=== PATIENT | male | born 1945 | race Caucasian/White ===

== ENCOUNTER 2017-09-28 09:39 | Inpatient (IN) | payer OTHER ==
[2017-09-26 09:30] VITALS: BMI 33.0
--- NOTE | 2017-09-26 10:04 | PAT Medication Instructions ---
Service Date Sep 26, 2017. Current Home Medication List Albuterol Inhaler (Ventolin Inhaler), 2 PUFFS INH Amoxicillin (Amoxil), 2,000 MG PO UD Ascorbic Acid (Vitamin C), 1,000 MG PO QAM Atenolol (Tenormin), 25 MG PO QAM Cetirizine Hcl (Zyrtec), 10 MG PO QAM Cholecalciferol (Vitamin D3), 5,000 UNITS PO QAM Escitalopram Oxalate (Lexapro), 20 MG PO QPM Fluticasone Propionate (Inhala (Flovent Diskus), 2 PUFFS INH QAM Lisinopril (Zestril), 40 MG PO QAM Mometasone Furoate (Nasal) (Mometasone Furoate), 2 SPRAYS INTNAS QAM Montelukast Sodium (Singulair), 10 MG PO HS Multivitamin (Multivitamin), 1 TAB PO QAM Salmeterol Xinafoate (Serevent Diskus), 1 PUFF INH QAM Simvastatin (Zocor), 20 MG PO HS Terbinafine Hcl (Topical) (Lamisil At), 1 APPLN TOP DAILY/UD Vitamin D & K (K2 Plus D3 100-1000 Mcg-Unit), 1 TAB PO QAM [Guaifensin], 800 MG PO QAM [Guaifensin], 400 MG PO QPM [Nasonex [place]], 2 SPRAYS INTNAS QAM Medication Instructions For Your Scheduled Surgery Amoxicillin (Amoxil), 2,000 MG PO UD (continue as directed prior to dental procedures) - Hold the following medications 24 hours prior to surgery: Terbinafine Hcl (Topical) (Lamisil At), 1 APPLN TOP DAILY/UD - Hold the following medications the morning of surgery: [Guaifensin], 800 MG PO QAM Vitamin D & K (K2 Plus D3 100-1000 Mcg-Unit), 1 TAB PO QAM Multivitamin (Multivitamin), 1 TAB PO QAM Lisinopril (Zestril), 40 MG PO QAM Cholecalciferol (Vitamin D3), 5,000 UNITS PO QAM Cetirizine Hcl (Zyrtec), 10 MG PO QAM Ascorbic Acid (Vitamin C), 1,000 MG PO QAM - Take the following medications the morning of surgery with a sip of water: [Nasonex [place]], 2 SPRAYS INTNAS QAM Salmeterol Xinafoate (Serevent Diskus), 1 PUFF INH QAM Mometasone Furoate (Nasal) (Mometasone Furoate), 2 SPRAYS INTNAS QAM Fluticasone Propionate (Inhala (Flovent Diskus), 2 PUFFS INH QAM Atenolol (Tenormin), 25 MG PO QAM Albuterol Inhaler (Ventolin Inhaler), 2 PUFFS INH - Take the following medications as scheduled the night before surgery: [Guaifensin], 400 MG PO QPM Simvastatin (Zocor), 20 MG PO HS Montelukast Sodium (Singulair), 10 MG PO HS Escitalopram Oxalate (Lexapro), 20 MG PO QPM Albuterol Inhaler (Ventolin Inhaler), 2 PUFFS INH If you have any questions please call us at [phone] or [phone] or [phone]
[2017-09-26 10:39] LABS: BASO % 0.6 %; BASO ABS # 0.05 K/uL (0-0.2); COMPLETE YES; HEMATOCRIT 40.7 % (42-52); IG% 0.3 %; LYMPH % 13.9 %; LYMPH ABS # 1.11 K/uL (1.2-3.4); MEAN CELL VOLUME 95.1 fL (80-100); MEAN CORPUSCULAR HEMOGLOBIN 31.3 pg (25-34); MEAN CORPUSCULAR HGB CONC 32.9 g/dl (32-36); MEAN PLATELET VOLUME 10.4 fL (7.4-10.4); MONO % 17.4 %; NEUT % 62.8 %; PLATELET COUNT 182 K/uL (130-400); RED BLOOD COUNT 4.28 M/uL (4.7-6.1)
--- NOTE | 2017-09-26 10:41 | DIAGNOSTIC IMAGING REPORT ---
CHEST PREADMISSION(PA/LAT) CLINICAL HISTORY: Preoperative chest. History of asthma. COMPARISON STUDY: No previous studies for comparison. FINDINGS: The heart is normal in size. There is no failure. There is no lobar consolidation. There is a calcified left lower lobe granuloma. On the lateral view there is a 24 mm opacity projected over the anterior aspect of the lower thoracic spine. As no corresponding lesion is visualized on the PA film this likely represents a summation. Nevertheless seem prudent to obtain a repeat study with shallow lateral obliques to exclude a parenchymal lesion.[ IMPRESSION: 24 mm opacity visualized only on the lateral radiograph. This likely represents a summation. A repeat study with shallow lateral obliques is recommended to exclude a true parenchymal lesion. Electronically signed by: Bud Smith M.D. 09/26/2017 10:40 AM Dictated Date/Time: 09/26/2017 10:37 AM
[2017-09-26 10:42] LABS: URINE APPEARANCE CLEAR (CLEAR); URINE BILIRUBIN NEG (NEG); URINE COLOR YELLOW; URINE NITRITE NEG (NEG); URINE PH 6.5 (4.5-7.5); URINE SPECIFIC GRAVITY 1.017 (1.000-1.030); UROBILINOGEN NEG (NEG); ZZUR CULT IF INDIC CLEAN CATCH NO
[2017-09-26 10:45] LABS: MANUAL MICROSCOPIC REQUIRED? NO; REVIEW REQ? NO
[2017-09-26 10:46] LABS: BUN/CREATININE RATIO 18.4 (10-20); CREATININE 1.01 mg/dl (0.60-1.40); POTASSIUM 4.6 mmol/L (3.5-5.1)
[2017-09-26 10:53] LABS: PROTHROMBIN TIME (PATIENT) 10.3 SECONDS (9.0-12.0)
[2017-09-26 11:16] LABS: ESTIMATED AVERAGE GLUCOSE 111 mg/dl; HA1C FLAG Normal (Normal)
--- NOTE | 2017-09-26 15:04 | HISTORY & PHYSICAL EXAMINATION ---
DATE OF ADMISSION: 09/28/2017 CHIEF COMPLAINT: Right knee pain and instability, status post previous total knee arthroplasty. HISTORY OF PRESENT ILLNESS: The patient is a 72-year-old gentleman approximately 15 years status post right total knee arthroplasty by an outside physician. Apparently, he had one episode of broken post years ago, which required a poly revision. He presented to our office for evaluation of pain and instability and x-rays revealed a repeat broken post. He is now scheduled for a right total knee revision. PAST MEDICAL HISTORY: Hypertension and asthma. PAST SURGICAL HISTORY: Bilateral knee replacement, left shoulder, and right hip. MEDICATIONS: Nasonex 2 sprays each nostril daily, Flovent 1 puff 2 times daily, atenolol 25 mg daily, Zestril 40 mg daily, Zocor 20 mg at bedtime, Zyrtec 10 mg daily, Singulair 10 mg at bedtime, and Mucinex 600 mg q. 12 hours p.r.n. ALLERGIES: CLINDAMYCIN, CEFTRIAXONE, AND LATEX. SOCIAL HISTORY AND REVIEW OF SYSTEMS: Noncontributory. PHYSICAL EXAMINATION: GENERAL: Well-nourished and well-developed elderly male who appears his stated age. HEENT: Normocephalic and atraumatic. Extraocular movements intact. Oropharynx is pink and moist. NECK: Supple without adenopathy. LUNGS: Clear to auscultation bilaterally. HEART: Regular rate and rhythm. ABDOMEN: Soft, nontender, and nondistended. EXTREMITIES: The upper extremities are within normal limits. The right knee is neutrally aligned. He has a well-healed midline incision from his previous arthroplasty. X-RAYS: X-rays were reviewed. He has bilateral total knees in place. He has a revision knee on the left side. The right knee shows evidence of a broken post with a displaced locking type screw. ASSESSMENT: Right knee pain and instability status post previous arthroplasty with new broken post. PLAN: Risks versus benefits were discussed. Consent was obtained. The patient's primary care physician is Dr. Heath. We will proceed with right total knee arthroplasty revision as indicated.
[2017-09-28] VITALS (7 sets, daily range): BP systolic 149–173; BP diastolic 77–89; PULSE 64–79; TEMP 36.4–36.8; O2SAT 93–97; Ht 172.7 cm; Wt 98.4 kg
[~2017-09-28] VITALS: Ht 172.7 cm; Wt 98.4 kg
[~2017-09-28 09:39] MED LIST: ACETAMINOPHEN 500 MG TAB PO SCH; ALBUAER19 INH; AMOX500T3 PO; ASCO10003 PO; ATEN-173 PO; BUPIVACAINE 0.25% 30 ML VIAL ONE; BUPIVACAINE 0.5 % 5 MG/1 ML PF 10ML VIAL ONE; CEFAZOLIN 2000MG IV PUSH 10 ML IV SCH; CETI10TA10 PO; CHOL1000 PO; CeleBREX 200 MG CAP PO SCH; DEXAMETHASONE 4 MG TAB PO SCH; ESCI1TAB10 PO; FAMOTIDINE 20 MG TAB PO SCH; FENTANYL CITRATE INJ 50 MCG/1 ML 2 ML VIAL ONE; FLUT1AER5 INH; GABAPENTIN 300 MG CAP PO SCH; GUAIFENSIN PO; LACTATED RINGER'S 1000ML IV SCH; LACTATED RINGER'S 500 ML IV SCH; LISI40TA PO; METOCLOPRAMIDE HCL 10 MG TAB PO SCH; MIDAZOLAM HCL 1 MG/ML 2ML VIAL ONE; MOME6000 INTNAS; MONT1TAB3 PO; MULT-506 PO; NASONEX SPRAY INTNAS; ROPIVACAINE 5MG/ML 30 ML 150 MG, BUPIVACAINE 0.5% MPF INJ 30 ML, EpINEphrine HCL INJ 0.... INFIL SCH; SIMV20TA5 PO; SRVDIN50 INH; TERB1CRE32 TOP; VITA1TAB22 PO
[2017-09-28] MEDS ORDERED: MIDAZOLAM HCL 1 MG/ML 2ML VIAL ONE (10:09)
[2017-09-28] MEDS ORDERED: CEFAZOLIN SOD 2000MG/10 ML IV PUSH IV ONE (10:44)
[2017-09-28] MEDS ORDERED: VANCOMYCIN 1GM/270ML NSS ONE (11:33)
[2017-09-28] MEDS ORDERED: MEPERIDINE HCL 25 MG/ML CARP IV PRN (12:00)
[2017-09-28] MEDS ORDERED: LABETALOL HCL IV 5 MG/ML 20ML IV PRN (12:00)
[2017-09-28] MEDS ORDERED: EpHEDrine SULFATE INJ 50 MG/ML AMP IV PRN (12:00)
[2017-09-28] MEDS ORDERED: HYDROmorphone INJ 1 MG/ML SYR IV PRN (12:00)
[2017-09-28] MEDS ORDERED: FENTANYL CITRATE INJ 50 MCG/1 ML 2 ML VIAL IV PRN (12:00)
[2017-09-28] MEDS ORDERED: ATROPINE SULFATE 0.1 MG/ML 5ML SYR IV PRN (12:00)
[2017-09-28] MEDS ORDERED: ONDANSETRON INJ 2 MG/ML 2 ML VIAL IV PRN ×2 (12:00→16:00)
[2017-09-28] MEDS ORDERED: VANCOMYCIN 1GM/270ML NSS IV ONE (12:00)
[2017-09-28] MEDS ORDERED: ORTHO JOINT ANESTHETIC ONE (13:18)
[2017-09-28] MEDS ORDERED: BACITRACIN 50000 UNIT VIAL ONE (13:19)
[2017-09-28] MEDS ORDERED: POVIDONE-IODINE OP SOLN 30 ML BTL ONE (13:19)
--- NOTE | 2017-09-28 13:36 | History & Physical Bridge Note ---
H&P Re-Evaluation Bridge Note: I have examined the patient, reviewed the History & Physical and in the interval since the performance of the History & Physical I have noted the following changes of clinical significance: No changes noted
--- NOTE | 2017-09-28 15:48 | [facility] Post Operative Brief Note ---
Immediate Operative Summary Operative Date Sep 28, 2017. Pre-Operative Diagnosis Right knee pain and instability status post previous arthroplasty with new broken post. Post-Operative Diagnosis Right knee pain and instability status post previous arthroplasty with new broken post. Procedure(s) Performed Revision of Right Total Knee Arthroplasty Surgeon Dr. Boo Tmd Teacher Surgeon(s) Sonny Trejo PA-C Estimated Blood Loss 100cc Findings gross loosening with broken post Specimens A. Explanted hardware right knee Complication(s) None Disposition Recovery Room / PACU
[2017-09-28] MEDS ORDERED: SOD PHOSPHATE/SOD BIPHOSPHATE ENEMA 132 ML BTL PR PRN (16:00)
[2017-09-28] MEDS ORDERED: METOCLOPRAMIDE HCL INJ 5 MG/ML 2 ML VIAL IV PRN (16:00)
[2017-09-28] MEDS ORDERED: ZOLPIDEM TARTRATE 5 MG TAB PO PRN (16:00)
[2017-09-28] MEDS ORDERED: MAGNESIUM HYDROXIDE SUSP 30 ML UDC PO PRN (16:00)
[2017-09-28] MEDS ORDERED: CEFAZOLIN IV 1,000 MG in DEXTROSE 5% 50ML 50 ML IV SCH (16:00)
[2017-09-28] MEDS ORDERED: MoRPHine SULFATE 2 MG/ML CARP IV PRN ×2 (16:00→16:30)
[2017-09-28] MEDS ORDERED: BISACODYL 10 MG SUPP PR PRN (16:00)
[2017-09-28] MEDS ORDERED: KETOROLAC TROMETHAMINE 15 MG/ML VIAL IV. PRN (16:00)
[2017-09-28] MEDS ORDERED: OXYCODONE HCL IR 5 MG TAB (IMMEDIATE RELEASE) PO PRN (16:00)
[2017-09-28] MEDS ORDERED: MoRPHine SULFATE 10 MG/ML CARP/VIAL IV PRN (16:30)
[2017-09-28] MEDS ORDERED: MoRPHine SULFATE 4 MG/ML 1 ML CARP\\VIAL IV PRN (16:30)
--- NOTE | 2017-09-28 16:52 | Anesthesiology Progress Note ---
Anesthesia Post Op Note Date & Time Sep 28, 2017 at 16:52 Vital Signs Pain Intensity: 0 Vital Signs Past 12 Hours Date Time Temp Pulse Resp B/P (MAP) Pulse Ox O2 Delivery O2 Flow Rate FiO2 09/28/17 16:45 56 18 137/78 100 Nasal Cannula 2 09/28/17 16:35 56 18 151/75 100 Oxymask 10 09/28/17 16:25 56 18 150/74 100 Oxymask 10 09/28/17 16:18 36.6 62 18 158/88 98 Oxymask 10 09/28/17 10:27 36.7 66 18 173/84 94 Room Air Notes Mental Status: alert / awake / arousable, participated in evaluation Pt Amnestic to Procedure: Yes Nausea / Vomiting: adequately controlled Pain: adequately controlled Airway Patency, RR, SpO2: stable & adequate BP & HR: stable & adequate Hydration State: stable & adequate Anesthetic Complications: no major complications apparent
--- NOTE | 2017-09-28 17:43 | DIAGNOSTIC IMAGING REPORT ---
RIGHT KNEE 2 VIEWS History: Right total knee arthroplasty. Degenerative arthritis. Postop. FINDINGS: The patient is status post a right total knee arthroplasty. The hardware is intact. No fracture or dislocation. Skin mckayla and surgical drains are in place. IMPRESSION: Right total knee arthroplasty. No evidence for hardware complication. Electronically signed by: Harshad Meraz M.D. 09/28/2017 5:42 PM Dictated Date/Time: 09/28/2017 5:32 PM
[2017-09-28] MEDS: TRANEXAMIC ACID INJ 1,000 MG in SYRINGE 0 ML IV SCH ×2 (18:53→18:55)
[2017-09-28] MEDS ORDERED: SENNA 8.6 MG TAB PO SCH (21:00)
[2017-09-28] MEDS: ACETAMINOPHEN 500 MG TAB PO SCH (21:25)
[2017-09-28] MEDS: ASPIRIN 81 MG ECTAB PO SCH (21:25)
[2017-09-28] MEDS: DOCUSATE SODIUM 100 MG CAP PO SCH (21:25)
[2017-09-28] MEDS ORDERED: TRANEXAMIC ACID INJ 1,000 MG in SODIUM CHLORIDE 0.9% 100ML 100 ML IV SCH (22:00)
[2017-09-28] MEDS ORDERED: VANCOMYCIN INJ 1,000 MG in SODIUM CHLORIDE 0.9% 250ML 250 ML IV SCH (22:00)
[2017-09-29] MEDS: D5W AND 1/2NSS + 20MEQ KCL 1,000 ML IV SCH ×3 (01:01→13:34)
[2017-09-29 03:50] VITALS: BP 152/86; PULSE 70; TEMP 36.5; O2SAT 95
[2017-09-29] MEDS: ACETAMINOPHEN 500 MG TAB PO SCH ×2 (05:33→13:33)
[2017-09-29 05:34] LABS: HEMATOCRIT 35.1 % (42-52); MEAN CELL VOLUME 93.1 fL (80-100); MEAN CORPUSCULAR HEMOGLOBIN 31.3 pg (25-34); MEAN CORPUSCULAR HGB CONC 33.6 g/dl (32-36); MEAN PLATELET VOLUME 10.7 fL (7.4-10.4); PLATELET COUNT 155 K/uL (130-400); RED BLOOD COUNT 3.77 M/uL (4.7-6.1); WHITE BLOOD COUNT 17.63 K/uL (4.8-10.8)
[2017-09-29 07:55] VITALS: BP 160/81; PULSE 72; TEMP 36.8; O2SAT 97
[2017-09-29] MEDS: ASPIRIN 81 MG ECTAB PO SCH (08:35)
[2017-09-29] MEDS: DOCUSATE SODIUM 100 MG CAP PO SCH (08:36)
--- NOTE | 2017-09-29 08:52 | Orthopedic Progress Note ---
Orthopedic Progress Note Date of Service Sep 29, 2017. Subjective Post OP Day: 1 Reports: feeling well, Denies: chest pain, SOB, nausea / vomiting, light headedness, calf pain Objective calves soft nontender, N/V intact, capillary refill less than 2 sec., dressing C /D/I, A&O x3, toes mobile, hemovac drainage (85CC) Date Time Temp Pulse Resp B/P (MAP) Pulse Ox O2 Delivery O2 Flow Rate FiO2 09/29/17 03:50 36.5 70 16 152/86 (108) 95 Room Air 09/28/17 23:45 Room Air 09/28/17 22:54 36.4 68 18 149/77 (101) 93 Room Air 09/28/17 20:52 36.8 68 16 163/81 (108) 97 Nasal Cannula 2.0 09/28/17 19:33 36.4 72 16 173/88 (116) 97 Nasal Cannula 2.0 09/28/17 18:22 36.5 79 16 171/89 (116) 96 Nasal Cannula 2.0 09/28/17 17:57 36.4 64 16 166/82 (110) 96 Nasal Cannula 2.0 09/28/17 17:50 Nasal Cannula 2.0 09/28/17 17:39 97 Nasal Cannula 2.0 09/28/17 17:10 36.6 62 18 137/74 99 Nasal Cannula 2 09/28/17 16:55 36.6 59 18 144/84 99 Nasal Cannula 2 09/28/17 16:45 56 18 137/78 100 Nasal Cannula 2 09/28/17 16:35 56 18 151/75 100 Oxymask 10 09/28/17 16:25 56 18 150/74 100 Oxymask 10 09/28/17 16:18 36.6 62 18 158/88 98 Oxymask 10 09/28/17 10:27 36.7 66 18 173/84 94 Room Air Laboratory Results 24 Hours: Test 09/29/17 05:10 Hematocrit 35.1 % Hemoglobin 11.8 g/dL Assessment & Plan Assessment: POD#1 SP REVISION RIGHT TKA Plan: PT/OT DVT PROPH- ASA 81MG BID PAIN MANAGEMENT DC PLANNING- DOING WELL, LIKELY DC HOME LATER THIS AFTERNOON. OK TO DC DRESSING/DRAIN.
[2017-09-29] MEDS ORDERED: CLB200 PO (08:55)
[2017-09-29] MEDS ORDERED: RXC5 PO (08:55)
[2017-09-29] MEDS ORDERED: ACET-24 PO (08:55)
[2017-09-29] MEDS ORDERED: SENN1TAB80 PO (08:55)
[2017-09-29] MEDS ORDERED: ASPEC81 PO (08:55)
--- NOTE | 2017-09-29 08:56 | Discharge Instructions ---
Discharge Instructions Date of Service Sep 29, 2017. Admission Reason for Admission: Right Knee Osteoarthritis, Painful Hardware Discharge Discharge Diagnosis / Problem: SP REVISION TKA Discharge Goals Goal(s): Decrease discomfort, Improve function, Increase independence Activity Recommendations Activity Limitations: per Instructions/Follow-up section . Instructions / Follow-Up Instructions / Follow-Up ACTIVITY RECOMMENDATIONS: SELF CARE INSTRUCTIONS AFTER TOTAL KNEE REPLACEMENT A. You may need to continue a physical therapy program after discharge from the hospital. There are several options available to you. Your doctor will assist you in selecting the best one for you. 1. An out-patient facility 2 to 3 times a week for therapy or home therapy. 2. Continue working on all exercises taught to you in the hospital. Your goals should be to increase bending of your knee to 90 degrees and beyond and to fully straighten your knee. B. You may progress at your own pace from walking with a walker or crutches to a cane; then to no assistive devices. C. Make walking a part of your daily routine. Be up as much as comfortable with rest periods throughout the day. Rest with leg elevation is very important. Use the ice wrap frequently for the first 3-4 weeks. D. There are no restrictions on activities. You may ride in a car, shop, participate in patch setter and all social activities. E. Wear the long elastic stockings (BURT hose) 20 hours a day for 2 weeks after surgery. They can be removed several times a day for laundering and for a bath. F. You may shower, no tub baths until cleared by your doctor. SPECIAL CARE INSTRUCTIONS: VERY IMPORTANT TO READ AND REVIEW A. There are a few signs you need to watch for after you are home. Call [facility] if you notice any of the followin. Increased severe knee pain. Some pain is expected especially when you exercise. 2. Increased swelling in your leg or knee; pain or swelling of the calf muscle in either lower leg. 3. Any fluid drainage from the incision. 4. Shortness of breath or chest pain. B. Please call [facility] at if you have any concerns or questions about your operation or recovery. The doctor or his nurse will return your call promptly. C. You must take antibiotics before dental work, bladder, bowel or other surgery. Your doctor will provide you with a permanent care to carry describing this precaution. IMPORTANT: * REMEMBER TO TAKE ASPIRIN, 81 MG, TWICE DAILY FOR 4 WEEKS UNLESS OTHERWISE DIRECTED. THIS IS YOUR BLOOD THINNER. * HIGH RISK PATIENTS MAY BE PRESCRIBED A STRONGER BLOOD THINNER. THIS WILL BE PROVIDED AT DISCHARGE. * CALL IF INCREASED PAIN, REDNESS, DRAINAGE OR FEVER GREATER THAT 101. * WEAR BURT HOSE 20 HOURS PER DAY FOR 2 WEEKS. * Prevena- This is a large suction dressing covering your incision. This will help pull any excess drainage from the wound and allow your incision to heal properly. You may shower with this if you can keep the unit outside of the shower. If any bleeding or leakage is noted please call your doctor's office. This will remain on your incision for 7 days and then should be removed. This can be done yourself or by the home nursing staff if applicable. The entire unit is disposable once removed. Once removed, keep incision clean and dry. If redness or drainage is noted, please call your surgeon. FOLLOW UP VISIT: If appointment is not already scheduled: Please call [facility] to make a follow-up appointment for 2 weeks after your surgery at . Current Hospital Diet Patient's current hospital diet: Regular Diet Discharge Diet Recommended Diet: Regular Diet Procedures Procedures Performed: Revision of Right Total Knee Arthroplasty Pending Studies Studies pending at discharge: no Laboratory Results Hemoglobin A1c Test 09/26/17 10:08 Range/Units Estimated Average Glucose 111 mg/dl Hemoglobin A1c 5.5 4.5-5.6 % Medical Emergencies . Who to Call and When: Medical Emergencies: If at any time you feel your situation is an emergency, please call 911 immediately. . Non-Emergent Contact Non-Emergency issues call your: Surgeon . "Provider Documentation" section prepared by Yokasta Nuno. . VTE Core Measure Inpt VTE Proph given/why not?: Other Anticoagulation, T.E.D. Stockings, SCD's
[2017-09-29] MEDS ORDERED: PANTOprazole SOD 40 MG TAB PO SCH (09:00)
[2017-09-29] MEDS ORDERED: ALBUTEROL HFA 8 GM INHALER INH PRN (11:00)
[2017-09-29 12:18] VITALS: BP 160/81; PULSE 72; TEMP 36.8; O2SAT 97
[2017-09-29 15:04] VITALS: BP 162/76; PULSE 63; TEMP 36.7; O2SAT 96
[2017-09-29] MEDS ORDERED: SIMVASTATIN 20 MG TAB PO SCH (21:00)
[2017-09-29] MEDS ORDERED: CeleBREX 200 MG CAP PO SCH (21:00)
[2017-09-29] MEDS ORDERED: ESCITALOPRAM OXALATE 20 MG TAB PO SCH (21:00)
[2017-09-29] MEDS ORDERED: MONTELUKAST SOD 10 MG TAB PO SCH (21:00)
[2017-09-30] MEDS ORDERED: CHOLECALCIFEROL 1000 INTER.UNIT TAB PO SCH (09:00)
[2017-09-30] MEDS ORDERED: CETIRIZINE HCL 10 MG TAB PO SCH (09:00)
[2017-09-30] MEDS ORDERED: SALMETEROL XINAFOATE 50MCG 28 BLISTER INH INH SCH (09:00)
[2017-09-30] MEDS ORDERED: LISINOPRIL 40 MG TAB PO SCH (09:00)
--- NOTE | 2017-10-01 07:03 | OPERATIVE REPORT ---
DATE OF OPERATION: 09/28/2017 PREOPERATIVE DIAGNOSIS: Aseptic loosening with broken post of right total knee. POSTOPERATIVE DIAGNOSIS: Aseptic loosening with broken post of right total knee. PROCEDURE: Revision total knee arthroplasty, right knee. SURGEON: Ángel Boo MD. STORY ANALYST: VALERI Suarez. ANESTHESIA: Spinal. COMPLICATIONS: None. Mr. Trejo was crucial throughout all portions of this case including prepping, draping, surgical clinical reviewer, wound closure and dressing application. DESCRIPTION OF PROCEDURE: The patient's right leg was prepped and draped in usual sterile manner. Limb was exsanguinated with an Esmarch bandage and tourniquet inflated to 325 mmHg. Of note, was significant decreased range of motion of the hip due to his hip fusion. A longitudinal incision was opened, subcutaneous tissue was sharply dissected. Electrocautery was used for hemostasis. 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 A lateral snip was carried out and a complete synovectomy was carried out using sharp dissection. The polyethylene was easily dislodged with an osteotome and was removed. Next, attention was turned to the femur and this was undermined using a narrow flexible osteotome and this was disimpacted using a punch and a mallet. No bone came with the implant. Next, the attention was turned to the tibia. This was undermined using a combination of both an oscillating saw and reciprocating saw and using a punch and a mallet, the tibia was easily removed. The adjust job of cement removal began and this was carried out using various osteotomes until all cement was removed. A drill was used to penetrate the distal cement plug in sequential reamings were taken up to a size 13, which gave good fill of the tibia. The tibial cutting guide was pinned into position. The guide was stable and the tibial reamer was removed and the tibial osteotomy was carried out. No gross bony defects were noted. Next, the 13 tibial reamer was again placed and decision was made with a 6 mm offset to give good centralization of the tibia. The tibial trial was assembled and was impacted in position and fit quite nicely. Next, attention was turned to the distal femur where sequential reamings were taken up to a size 17. The 4 femoral cutting guide was placed and 2 cuts for 10 mm distal augmentation and 5 mm medial augmentation posteriorly and a 10 mm lateral augmentation posteriorly were planned. All of these bone fragments were removed. Soft tissue was removed from any bony defects. A trial reduction was carried out and 16 poly gave good representation of range of motion as well as soft tissue tension. Decision was made to go with a constrained tibial post. The trials were removed. The patella that had been sought off previously was drilled and tracked nicely. The final components were assembled on the back table and 3 packs of gentamicin containing cement was mixed. First the tibial component was cemented into position. Then, the femoral component was cemented into position. The tibia was subluxed anteriorly enough that the tibial poly inserted. This was placed and the retaining pin was placed and the knee was reduced. Knee was held in extension while the patella was cemented into position. The patellar clamp was left on until the cement hardened. The wound was again thoroughly irrigated. Betadine soak was utilized. A joint mix was utilized throughout the case and the lateral snip extensor mechanism was closed using #2 Mersilene suture. Subcutaneous tissues closed using 0 Dexon, and skin was closed with ZipLine. Silverlon dressing was applied. The patient tolerated the procedure well. I attest to the content of the Intraoperative Record and any orders documented therein. Any exception s are noted below.
--- NOTE | 2017-10-01 13:20 | DISCHARGE SUMMARY ---
DISCHARGE DIAGNOSES: Right knee pain and instability due to broken prosthesis. SECONDARY DIAGNOSES: Hypertension and asthma. CONSULTS: None. COMPLICATIONS: None. PROCEDURE: Revision right total knee arthroplasty by Dr. Boo on 09/28/2017. BRIEF HISTORY: As dictated in the history and physical. HOSPITAL SUMMARY: The patient was admitted on the above noted date and had the above noted surgery performed, which he tolerated well. On the first postoperative day, the patient was feeling well and had no complaints. Calves were soft and nontender, neurovascularly intact. Dressings clean, dry and intact. Toes were mobile. Vital signs were stable. He was afebrile. Although, he was having some increased systolic blood pressures off and on. Hemoglobin was 11.8 and he was started on physical therapy protocol and continued on DVT prophylaxis and pain management. He was progressing well with his physical therapy and was remaining stable and it was felt he could be discharged to home on 09/29/2017. For further review, please see chart. LAB AND X-RAY DATA: As per chart. DISCHARGE INSTRUCTIONS: The patient was discharged to home in satisfactory condition on 09/29/2017. DIET: Regular. ACTIVITY: Follow TKA instruction sheets and special care instructions as noted. Follow up with Dr. Boo in 2 weeks. The patient is to call for an appointment if has not been made for you. DISCHARGE MEDICATIONS: Acetaminophen 1000 mg p.o. q. 8 hours for 30 days, aspirin 81 mg p.o. b.i.d., Celebrex 200 mg p.o. b.i.d., oxycodone 5-10 mg p.o. q. 4 hours p.r.n., and senna laxative 17.2 mg p.o. at bedtime. Resume home meds as listed and discharge instructions.
== END 2017-09-29 16:35 | disposition home or self-care (01) | DRG 468 ==
LOC: C.ACU 09:39 → C.3E 16:04 → ENRESERV 16:43
PROC: 0SPC0JZ Removal of Synthetic Substitute from Right Knee Joint, Open Approach (ICD-10-PCS; principal; 2017-09-28 13:05)
PROC: 0SRC0J9 Replacement of Right Knee Joint with Synthetic Substitute, Cemented, Open Approach (ICD-10-PCS; principal; 2017-09-28 13:05)
DX: T84.012A Broken internal right knee prosthesis, initial encounter (principal); T84.032A Mechanical loosening of internal right knee prosthetic joint, initial encounter; I10 Essential (primary) hypertension; J45.909 Unspecified asthma, uncomplicated; F32.9 Major depressive disorder, single episode, unspecified; E78.5 Hyperlipidemia, unspecified; Z96.653 Presence of artificial knee joint, bilateral; Z96.612 Presence of left artificial shoulder joint; Z96.641 Presence of right artificial hip joint; Z79.899 Other long term (current) drug therapy; Z91.040 Latex allergy status; Z88.1 Allergy status to other antibiotic agents

== ENCOUNTER → 2017-10-23 | Outpatient (CLI) | payer OTHER ==
[~2017-10-23] MED LIST changes: +ACET-1222 PO; +ACET-24 PO; -ACETAMINOPHEN 500 MG TAB PO SCH; +ASPEC81 PO; +ASPI81TA28 PO; -BUPIVACAINE 0.25% 30 ML VIAL ONE; -BUPIVACAINE 0.5 % 5 MG/1 ML PF 10ML VIAL ONE; -CEFAZOLIN 2000MG IV PUSH 10 ML IV SCH; +CLB200 PO; -CeleBREX 200 MG CAP PO SCH; -DEXAMETHASONE 4 MG TAB PO SCH; -FAMOTIDINE 20 MG TAB PO SCH; -FENTANYL CITRATE INJ 50 MCG/1 ML 2 ML VIAL ONE; -GABAPENTIN 300 MG CAP PO SCH; -LACTATED RINGER'S 1000ML IV SCH; -LACTATED RINGER'S 500 ML IV SCH; -METOCLOPRAMIDE HCL 10 MG TAB PO SCH; -MIDAZOLAM HCL 1 MG/ML 2ML VIAL ONE; -NASONEX SPRAY INTNAS; -ROPIVACAINE 5MG/ML 30 ML 150 MG, BUPIVACAINE 0.5% MPF INJ 30 ML, EpINEphrine HCL INJ 0.... INFIL SCH; +RXC5 PO; +SENN1TAB80 PO; +VNTHFA/IN INH
[2017-10-23 13:26] LABS: BASO % 0.3 %; BASO ABS # 0.03 K/uL (0-0.2); COMPLETE YES; EOS % 2.1 %; HEMATOCRIT 33.1 % (42-52); IG% 0.2 %; LYMPH % 10.1 %; LYMPH ABS # 0.96 K/uL (1.2-3.4); MEAN CELL VOLUME 96.5 fL (80-100); MEAN CORPUSCULAR HEMOGLOBIN 31.5 pg (25-34); MEAN CORPUSCULAR HGB CONC 32.6 g/dl (32-36); MONO % 14.3 %; PLATELET COUNT 284 K/uL (130-400); RED BLOOD COUNT 3.43 M/uL (4.7-6.1); WHITE BLOOD COUNT 9.54 K/uL (4.8-10.8)
[2017-10-23 13:32] LABS: INR 0.9 (0.9-1.1); PROTHROMBIN TIME (PATIENT) 9.9 SECONDS (9.0-12.0)
[2017-10-23 13:49] LABS: BLOOD UREA NITROGEN 27 mg/dl (7-18); BUN/CREATININE RATIO 21.4 (10-20); CALCIUM 8.8 mg/dl (8.5-10.1); CARBON DIOXIDE 24 mmol/L (21-32); CHLORIDE 105 mmol/L (98-107); CREATININE 1.24 mg/dl (0.60-1.40); GLUCOSE 94 mg/dl (70-99); POTASSIUM 4.6 mmol/L (3.5-5.1); SODIUM 137 mmol/L (136-145)
[2017-10-23 14:55] LABS: URINE APPEARANCE CLEAR (CLEAR); URINE BILIRUBIN NEG (NEG); URINE COLOR DK YELLOW; URINE NITRITE NEG (NEG); URINE SPECIFIC GRAVITY 1.026 (1.000-1.030); UROBILINOGEN NEG (NEG)
[2017-10-23 15:01] LABS: MANUAL MICROSCOPIC REQUIRED? NO; REVIEW REQ? NO
[2017-10-24 07:14] LABS: ESTIMATED AVERAGE GLUCOSE 100 mg/dl; HA1C FLAG Normal (Normal)
== END | disposition home or self-care (01) ==
LOC: C.LAB 12:09
PROVIDERS: ATTEND Orthopaedic Surgery Sports Medicine
DX: Z96.651 Presence of right artificial knee joint (principal)

== ENCOUNTER 2017-10-24 11:42 | Inpatient (IN) | payer OTHER ==
--- NOTE | 2017-10-23 14:24 | HISTORY & PHYSICAL EXAMINATION ---
DATE OF ADMISSION: 10/24/2017 CHIEF COMPLAINT: Right knee pain and swelling 1 month status post total knee revision. HISTORY OF PRESENT ILLNESS: The patient is a 72-year-old gentleman approximately 3-1/2 weeks status post right TKA revision. He states over the weekend he was walking up some steps, felt a pop in his knee, and had immediate pain and disability. He presented to our office for evaluation. 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 He is now scheduled for an urgent medial retinacular repair, possible poly exchange. PAST MEDICAL HISTORY: Hypertension and asthma. PAST SURGICAL HISTORY: Previous bilateral knee replacement many years ago and subsequent recent right total knee revision as above, left shoulder, right hip. MEDICATIONS: Nasonex 2 sprays each nostril daily, Flovent 1 puff 2 times daily, atenolol 25 mg daily, Zestril 40 mg daily, Zocor 20 mg at bedtime, Zyrtec 10 mg daily, Singulair 10 mg at bedtime, aspirin 81 mg b.i.d. ALLERGIES: CLINDAMYCIN, CEFTRIAXONE AND LATEX. SOCIAL HISTORY AND REVIEW OF SYSTEMS: Noncontributory. PHYSICAL EXAMINATION: GENERAL: Well-nourished, well-developed elderly male who appears his stated age. HEAD, EYES, EARS, NOSE, AND THROAT: Normocephalic, atraumatic, extraocular movements intact, oropharynx pink and moist. NECK: Supple without adenopathy. LUNGS: Clear to auscultation bilaterally. HEART: Regular rate and rhythm. ABDOMEN: Soft, nontender, nondistended. EXTREMITIES: The right knee is grossly swollen and ecchymotic. He has difficulty bearing weight. He is unable do a straight leg raise or extend the knee from a flexed position. X-RAYS: X-rays were reviewed and show a revision knee in place without abnormality. 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 PLAN: The above discussed with the patient and his . Due to Dr. Boo's absence, I have asked Dr. Zelaya to evaluate the patient. He has seen and evaluated the patient. He is in agreement that patient likely needs a medial retinacular repair. We will get him scheduled for retinacular repair in the near future. Also, possible poly exchange. Follow up with Dr. Boo postoperatively.
[2017-10-23 15:54] VITALS: BMI 33.0
[~2017-10-24] VITALS: Ht 172.7 cm; Wt 98.2 kg
[~2017-10-24 11:42] MED LIST changes: -ACET-24 PO; +ACETAMINOPHEN 500 MG TAB PO SCH; -ALBUAER19 INH; -ASPEC81 PO; +CEFAZOLIN 1000MG IV PUSH 5 ML IV SCH; -CLB200 PO; +CeleBREX 200 MG CAP PO SCH; +DEXAMETHASONE 4 MG TAB PO SCH; +FAMOTIDINE 20 MG TAB PO SCH; +GABAPENTIN 300 MG CAP PO SCH; -GUAIFENSIN PO; +LACTATED RINGER'S 1000ML 1,000 ML IV SCH; +LACTATED RINGER'S 1000ML IV SCH; +METOCLOPRAMIDE HCL 10 MG TAB PO SCH; +ROPIVACAINE 5MG/ML 30 ML 150 MG, BUPIVACAINE 0.5% MPF INJ 30 ML, EpINEphrine HCL INJ 0.... INFIL ONE; -RXC5 PO; -SENN1TAB80 PO; +VANCOMYCIN INJ 1,500 MG in SODIUM CHLORIDE 0.9% 500ML 500 ML IV SCH
[2017-10-24 12:23] VITALS: BP 119/62; PULSE 66; TEMP 36.6; Ht 172.7 cm; Wt 98.2 kg
[2017-10-24] MEDS ORDERED: CEFAZOLIN 2000MG IV PUSH 10 ML IV SCH (13:02)
--- NOTE | 2017-10-24 13:04 | History & Physical Bridge Note ---
H&P Re-Evaluation Bridge Note: I have examined the patient, reviewed the History & Physical and in the interval since the performance of the History & Physical I have noted the following changes of clinical significance: possible poly exchange if needed.
[2017-10-24] MEDS ORDERED: NURSING VERBAL MED ORDER ONE (13:15)
[2017-10-24] MEDS ORDERED: PROPOFOL IV EMULSION 10 MG/ML 20 ML VIAL IV ONE (13:23)
[2017-10-24] MEDS ORDERED: MIDAZOLAM HCL 1 MG/ML 2ML VIAL ONE ×4 (13:23→17:59)
[2017-10-24] MEDS ORDERED: FENTANYL CITRATE INJ 50 MCG/1 ML 2 ML VIAL ONE ×2 (13:23→16:17)
[2017-10-24] MEDS ORDERED: LIDOCAINE HCL 2% 2 ML VIAL (20MG/ML) ONE (13:23)
[2017-10-24] MEDS ORDERED: ONDANSETRON INJ 2 MG/ML 2 ML VIAL ONE (13:23)
[2017-10-24] MEDS ORDERED: BUPIVACAINE 0.5 % 5 MG/1 ML PF 10ML VIAL ONE (15:29)
[2017-10-24] MEDS ORDERED: BUPIVACAINE/EPINEPHRINE 0.25% 1:200,000 30 ML VIAL ONE (15:29)
[2017-10-24] MEDS ORDERED: POVIDONE-IODINE OP SOLN 30 ML BTL ONE (16:10)
[2017-10-24] MEDS ORDERED: BACITRACIN 50000 UNIT VIAL ONE ×2 (16:11→17:20)
[2017-10-24] MEDS ORDERED: CEFAZOLIN SOD 1 GM VIAL ONE ×2 (16:54)
[2017-10-24] MEDS ORDERED: EpHEDrine SULFATE 50MG/5ML SYR ONE (16:56)
[2017-10-24 17:45] VITALS: BP 136/74; PULSE 74; TEMP 36.4; O2SAT 93
[2017-10-24] MEDS ORDERED: ONDANSETRON INJ 2 MG/ML 2 ML VIAL IV PRN (18:45)
[2017-10-24] MEDS ORDERED: ALBUTEROL HFA 8 GM INHALER INH PRN (18:45)
[2017-10-24] MEDS ORDERED: MoRPHine SULFATE 2 MG/ML CARP IV PRN (18:45)
[2017-10-24] MEDS ORDERED: ALUMINUM/MAGNESIUM/SIMETH (MAALOX MAX) 30 ML UDC PO PRN (18:45)
[2017-10-24] MEDS ORDERED: TRAMADOL HCL 50 MG TAB PO PRN (18:45)
[2017-10-24] MEDS ORDERED: MAGNESIUM HYDROXIDE SUSP 30 ML UDC PO PRN (18:45)
[2017-10-24] MEDS ORDERED: MoRPHine SULFATE 4 MG/ML 1 ML CARP\\VIAL IV PRN (18:45)
--- NOTE | 2017-10-24 19:14 | Anesthesiology Progress Note ---
Anesthesia Post Op Note Date & Time Oct 24, 2017 at 19:14 Vital Signs Pain Intensity: 0 Vital Signs Past 12 Hours Date Time Temp Pulse Resp B/P (MAP) Pulse Ox O2 Delivery O2 Flow Rate FiO2 10/24/17 19:02 70 18 99 10/24/17 19:02 72 18 10/24/17 19:01 134/61 10/24/17 18:57 70 18 100 10/24/17 18:57 70 18 10/24/17 18:56 123/75 10/24/17 18:55 73 13 10/24/17 18:55 72 13 100 10/24/17 18:51 117/61 10/24/17 18:50 69 17 10/24/17 18:50 69 17 99 10/24/17 18:46 125/58 10/24/17 18:45 67 13 10/24/17 18:45 66 13 100 10/24/17 18:41 108/60 10/24/17 18:40 74 15 98 10/24/17 18:40 73 15 10/24/17 18:36 116/58 10/24/17 18:35 68 11 10/24/17 18:35 66 11 100 10/24/17 18:31 104/60 10/24/17 18:30 70 15 10/24/17 18:30 67 15 99 10/24/17 18:30 36.5 66 16 104/60 (72) 97 Oxymask 10 10/24/17 12:23 36.6 66 18 119/62 Room Air 97 Notes Mental Status: alert / awake / arousable, participated in evaluation Pt Amnestic to Procedure: Yes Nausea / Vomiting: adequately controlled Pain: adequately controlled Airway Patency, RR, SpO2: stable & adequate BP & HR: stable & adequate Hydration State: stable & adequate Neuraxial Anesthesia: was administered, sensory block is resolving Anesthetic Complications: no major complications apparent
[2017-10-24] MEDS ORDERED: D5W AND 1/2NSS + 20MEQ KCL 1,000 ML IV SCH (19:15)
[2017-10-24 20:15] VITALS: BP 142/73; PULSE 80; TEMP 36; O2SAT 92
[2017-10-24] MEDS ORDERED: VANCOMYCIN INJ 1,500 MG in SODIUM CHLORIDE 0.9% 500ML 500 ML IV ONE (20:15)
[2017-10-24 20:48] VITALS: BP 175/89; PULSE 97; TEMP 36.4; O2SAT 95
[2017-10-24] MEDS: OXYCODONE HCL IR 5 MG TAB (IMMEDIATE RELEASE) PO PRN (21:06)
[2017-10-24] MEDS: DOCUSATE SODIUM 100 MG CAP PO SCH (21:10)
[2017-10-24] MEDS: SIMVASTATIN 20 MG TAB PO SCH (21:10)
[2017-10-24] MEDS: ESCITALOPRAM OXALATE 20 MG TAB PO SCH (21:10)
[2017-10-24] MEDS: SENNA 8.6 MG TAB PO SCH (21:10)
[2017-10-24] MEDS: MONTELUKAST SOD 10 MG TAB PO SCH (21:11)
[2017-10-24] MEDS: TRANEXAMIC ACID INJ 1,000 MG in SYRINGE 0 ML IV SCH ×2 (21:19→21:20)
[2017-10-24 21:49] VITALS: BP 176/85; PULSE 100; TEMP 36.7; O2SAT 96
--- NOTE | 2017-10-24 21:50 | OPERATIVE REPORT ---
DATE OF OPERATION: 10/24/2017 INDICATION FOR PROCEDURE: The patient is a 72-year-old male patient of Dr. Boo, 1 month ago did a revision knee replacement. According to his operative note he did do quad snip during the procedure. The patient was doing well and then he was pushing up some stairs and felt a major pop and could not strain his leg and had ecchymosis, swelling all consistent with a ruptured medial retinaculum repair. Radiographs demonstrate the implant look well aligned and not loosened but the patella was in some baja which is likely consistent with possibly a quad tendon rupture. PREOPERATIVE DIAGNOSES: Right knee medial retinacular rupture 1 month post-revision total knee replacement, possible quadriceps tendon rupture. POSTOPERATIVE DIAGNOSES: Medial retinaculum and quadriceps tendon rupture, complete disruption of quadriceps tendon with hematoma, hemarthrosis, status post revision right knee replacement. PROCEDURE: Medial retinaculum and quadriceps tendon repair and irrigation and debridement of right knee joint, status post total knee arthroplasty. SURGEON: Fuentes Zelaya MD. STAFF RESEARCH ASSOCIATE: VALERI Suarez. ANESTHESIA: Spinal. OPERATIVE PROCEDURE: The patient was taken to the operating room and anesthetized with spinal anesthetic. He was placed supine on the operating room table. Pneumatic tourniquet was placed about the right upper thigh. His right lower extremity was prepped and draped with ChloraPrep. The patient's exam demonstrated he clinically had a large effusion, had some ecchymosis about the knee, there was no erythema, no signs of infection. He had a defect in his quad, palpable and he had very stiff hip, very limited range of motion of his hip joint. His right knee and leg was elevated, exsanguinated with Esmarch bandage. Pneumatic tourniquet was raised to 325 mmHg. Anterior incision was made through his previous old scar incision. We extended it up proximally several centimeters to gain access to the proximal quadriceps tendon. We did not utilize the lower aspect of the incision. The subcutaneous tissues were divided down entering a large hematoma. This hematoma was evacuated and there was large defect in his medial retinaculum extending up into the quad tendon. The medial retinacular repair from the proximal 3/4 of the patella down to the tibial tubercle was all intact and all sutures left in place. We did get a culture. We evacuated all the hematoma of the joint. Then we copiously irrigated out the wound with 3 liters of antibiotic solution with bacitracin. Then we took a better look at the injury and basically the quad snip was completely disrupted and the medial retinaculum was vertically split right in the upper medial aspect of the patella and then the curvilinear incision from the previous exposure was completely disrupted and retracted proximally with the vastus medialis retracted proximally. Then the quad tendon was completely disrupted transversally likely in the area of the quad snip and this went all the way out into the vastus lateralis and extended up into the vastus lateralis muscle. There was a small area of tendon of the quad tendon that was still at the musculotendinous junction and this was about 2.5 to 3 cm. We were able to utilize that tendon tissue for the repair. The tendon tissue did not look good in general. The wound was then further copiously irrigated. I freshened up the torn edge of the tendons including the VMO tendon, medial retinaculum and quad tendon. Then we put some retractors and looked into the joint and the post and the plastic were in good condition and evacuated some hemarthrosis from the joint and irrigated the joint out copiously. I then placed a traction suture into the VMO tendon, so we could get some longitudinal traction and extended the knee fully to take tension off the quad tendon. I then placed a Krackow type stitch into the small proximal quad tendon capturing some of the muscle as well. Then we placed another Krackow suture into the distal quad tendon down to the level of the patella and back proximally. Then these 2 Reyno sutures were sutured to each other repairing the quad tendon using surgeon's knots 7 throws. Then the medial retinacular repair, medial quad tendon was repaired with uovpey-co-ncxgm #2 Fiberwire and also intermittent egurpt-tl-ttkts #5 FiberWire sutures getting larger bites through the tissues in a onhpzd-if-utqxg fashion. Then we also closed the split in the vastus lateralis with aqxrhi-cw-heezj #2 FiberWire sutures and then medial retinaculum vertical extension along the medial side of the patella was closed with hghrll-ux-zirdn #2 FiberWire sutures. The knee was taken through range of motion and gravity equinus about 35 degrees. Without tension on the repair, I could bent knee to 40, with slight tension on the repair but the repair was secure at 40 degrees of flexion. The wound was copiously irrigated again with more antibiotic solution of bacitracin. Then we closed subcutaneous tissues with interrupted 2-0 Vicryl, closed the skin with mckayla. Sterile dressings were applied and knee immobilizer with knee extension. VALERI Suarez was my certified surgical first assistant. He functioned as certified surgical first assistant throughout the entire procedure. He assisted in soft tissue retraction, assisted in irrigation. He assisted me in some of the suture management. He performed some of the subcutaneous closure and also assisted in the skin closure with mckayla. He performed in dressing change, knee immobilizer and will participate in postoperative care of the patient. I attest to the content of the Intraoperative Record and any orders documented therein. Any exception s are noted below.
[2017-10-24] MEDS: ACETAMINOPHEN 500 MG TAB PO SCH (21:52)
[2017-10-24 22:38] VITALS: BP 184/92; PULSE 101; TEMP 36.6; O2SAT 94
[2017-10-24 23:33] LABS: MEAN CORPUSCULAR HEMOGLOBIN 32.2 pg (25-34); MEAN CORPUSCULAR HGB CONC 33.5 g/dl (32-36); PLATELET COUNT 209 K/uL (130-400); RED BLOOD COUNT 3.23 M/uL (4.7-6.1); WHITE BLOOD COUNT 7.83 K/uL (4.8-10.8)
[2017-10-24 23:49] LABS: BUN/CREATININE RATIO 21.6 (10-20); CALCIUM 8.4 mg/dl (8.5-10.1); CREATININE 1.08 mg/dl (0.60-1.40); MAGNESIUM 1.9 mg/dl (1.8-2.4); POTASSIUM 4.4 mmol/L (3.5-5.1)
[2017-10-25] VITALS (10 sets, daily range): BP systolic 145–178; BP diastolic 73–86; PULSE 74–104; TEMP 36.4–38.1; O2SAT 93–96
--- NOTE | 2017-10-25 02:50 | INTERNAL MEDICINE CONSULTATION ---
DATE OF CONSULTATION: 10/25/2017 PRIMARY CARE DOCTOR: Dr. Richter. REASON FOR CONSULTATION: Patient seen at the request of Dr. Cuevas for evaluation of postop hypertension and medical management. HISTORY OF PRESENT ILLNESS: History obtained from patient, records. Medical history significant for hypertension, asthma and tobacco abuse as per records. Patient currently admitted under Orthopedic service for R medial retinacular rupture status post right knee surgery. Four weeks ago patient had right TKA revision. He was at home yesterday walking some steps when he felt he pop on the right knee causing him to fall down, unable to get up, excruciating pain. Subsequently underwent right knee surgery yesterday. Postop the patient noted excruciating right knee pain. SBP elevated postop 140-180. Patient denies chest pain or shortness of breath. Took his morning pills yesterday morning. Blood pressure stable at home as per patient account. Postop right knee pain currently better. MEDICAL HISTORY: As above. SURGERIES: Knee surgery, some gland surgery from childhood, left shoulder surgery, hip surgery. HOME MEDICATIONS: Tylenol, Ventolin, vitamin C, aspirin, Tenormin, Zyrtec, vitamin D, Lexapro, Flovent, Zestril, Singulair, omeprazole, multivitamins, Zocor, Serevent, Lamisil vitamin D. ALLERGIES: LATEX, CLINDAMYCIN, CEFTRIAXONE . CURRENT INPATIENT MEDICATIONS: Include Tylenol, albuterol, docusate sodium, fluticasone, lisinopril, mag oxide, montelukast, morphine, multivitamins, oxycodone, Zofran, Xarelto, Serevent, simvastatin, Senna, Tramadol, vancomycin FAMILY HISTORY: Heart disease. PERSONAL AND SOCIAL HISTORY: Past tobacco abuse. No chronic intake of alcoholic beverages. Retired from maintenance. REVIEW OF SYSTEMS: As per HPI, all 10 systems reviewed. All other ROS negative. PHYSICAL EXAMINATION: VITAL SIGNS: Blood pressure was noted to be 176/82, pulse rate 104, RR 16, temperature 37, sats 94 on room. GENERAL: Noted pleasant, no respiratory distress, obese. SKIN: Pallor, warm. HEENT: Alopecia. Pale palpebral conjunctive. No ptosis. Dry mucosa. NECK: Short neck. No tenderness. LUNGS: Decreased breath sounds. No tenderness. HEART: Tachycardic. No murmur. ABDOMEN: Soft, nontender. EXTREMITIES: Immobilizer on the right lower extremity. Some tenderness. NEUROLOGIC: Coherent. No gross focality. LABORATORY STUDIES: Hemoglobin was noted to be 10.4, hematocrit 31, white cells 7.8, platelets 209. Sodium 137, potassium 3.4, chloride 107, CO2 24, BUN 20, creatinine 1, glucose 203 Hemoglobin A1c from 10/23/2017 was 5.1. ASSESSMENT: 1. Hypertensive urgency Multifactorial : uncontrolled postop pain, history of right knee surgery IV fluids possibly contributory 2. Asthma, past tobacco abuse. Asthma well controlled as per patient. 3. Hyperglycemia likely secondary to dextrose containing IVF, ehsan-op steroids. 4. Postop anemia Hemoglobin stable at 10 Patient asymptomatic. RECOMMENDATIONS: Facilitate home BP meds analgesia no NSAIDs please. OK to discontinue IV fluid. (Patient was able to eat dinner last night and chemistry within normal limits.) DVT prophylaxis, Xarelto. Thank you very much for this consultation. Dr. Rodas will follow patient's progress. HERON
[2017-10-25] MEDS ORDERED: TRANEXAMIC ACID INJ 1,000 MG in SYRINGE 0 ML IV SCH (06:00)
[2017-10-25] MEDS: ACETAMINOPHEN 500 MG TAB PO SCH ×3 (06:19→21:51)
--- NOTE | 2017-10-25 07:15 | Clinical Documentation Query ---
CLINICAL DOCUMENTATION QUERY A 72-year-old male patient had a right revision knee replacement. According to his operative note he did do quad snip during the procedure. The patient was doing well and then he was pushing up some stairs and felt a major pop and could not strain his leg and had ecchymosis, swelling all consistent with a ruptured medial retinaculum repair. Radiographs demonstrate the implant look well aligned and not loosened but the patella was in some baja which is likely consistent with possibly a quad tendon rupture. In your clinical opinion is this patient being managed for: ( x ) Post-procedural complication of right knee replacement ( ) Not Agree ( ) Other explanation of clinical findings (Please Explain) ( ) Unable to determine (Please Define) ( ) Need to Discuss The medical record reflects the following clinical findings, treatment, and risk factors. Clinical Indicators: Right knee medial retinacular rupture 1 month post-revision total knee replacement Treatment: Medial retinaculum and quadriceps tendon repair and irrigation and debridement of right knee joint, status post total knee arthroplasty Risk Factors: S/P right knee replacement 1 month ago Please clarify and document your clinical opinion in the progress notes and discharge summary. Terms such as "probable", "suspected", "likely", "questionable", "possible", or "still to be ruled out" are acceptable. IF IN AGREEMENT, YOU MUST DOCUMENT ABOVE DIAGNOSTIC STATEMENT IN DAILY PROGRESS NOTES AND DISCHARGE SUMMARY. This document is not part of the patient's record. Thank You, Milvia Salas RN [phone]
[2017-10-25] MEDS ORDERED: VANCOMYCIN INJ 1,500 MG in SODIUM CHLORIDE 0.9% 500ML 500 ML IV SCH (08:30)
[2017-10-25] MEDS: DOCUSATE SODIUM 100 MG CAP PO SCH ×2 (08:33→21:50)
[2017-10-25] MEDS: MULTIVITAMIN TAB PO SCH (08:34)
[2017-10-25] MEDS: RIVAROXABAN 10 MG TAB PO SCH (08:34)
[2017-10-25] MEDS: FLUTICASONE PROPIONATE NA SPR 16 GM BTL SCH (08:34)
[2017-10-25] MEDS: CETIRIZINE HCL 10 MG TAB PO SCH (08:34)
[2017-10-25] MEDS: LISINOPRIL 40 MG TAB PO SCH (08:34)
[2017-10-25] MEDS: SALMETEROL XINAFOATE 50MCG 28 BLISTER INH INH SCH (08:35)
[2017-10-25] MEDS: OXYCODONE HCL IR 5 MG TAB (IMMEDIATE RELEASE) PO PRN ×3 (08:39→22:49)
--- NOTE | 2017-10-25 10:44 | Orthopedic Progress Note ---
Orthopedic Progress Note Date of Service Oct 25, 2017. Subjective Post OP Day: 1 Reports: feeling well, pain controlled w PO medications, Denies: complaints, chest pain, SOB, nausea / vomiting, light headedness, calf pain Objective calves soft nontender, N/V intact, capillary refill less than 2 sec., dressing C /D/I, A&O x3, toes mobile Immobilizer in tact Date Time Temp Pulse Resp B/P (MAP) Pulse Ox O2 Delivery O2 Flow Rate FiO2 10/25/17 07:50 Room Air 10/25/17 07:02 36.4 85 16 161/80 (107) 93 Room Air 10/25/17 03:35 36.7 94 16 157/79 (105) 96 Room Air 10/25/17 00:15 104 16 176/82 (113) 10/25/17 00:15 Room Air 10/24/17 22:38 36.6 101 18 184/92 (122) 94 Room Air 10/24/17 21:49 36.7 100 18 176/85 (115) 96 Room Air 10/24/17 20:48 36.4 97 18 175/89 (117) 95 Room Air 10/24/17 20:15 36.0 80 14 142/73 (96) 92 Room Air Oxymask 10/24/17 19:45 Room Air Oxymask 10/24/17 19:45 Room Air 10/24/17 19:27 68 12 98 10/24/17 19:27 69 12 10/24/17 19:26 126/61 10/24/17 19:22 72 11 99 10/24/17 19:22 71 11 10/24/17 19:21 117/65 10/24/17 19:17 69 13 10/24/17 19:17 69 13 99 10/24/17 19:16 126/57 10/24/17 19:13 68 13 10/24/17 19:13 67 13 99 10/24/17 19:11 128/60 10/24/17 19:08 66 14 99 10/24/17 19:08 67 14 10/24/17 19:06 129/71 10/24/17 19:05 36.8 75 17 126/57 (81) 99 Nasal Cannula 2 Oxymask 10/24/17 19:03 68 17 10/24/17 19:03 66 17 100 10/24/17 19:02 70 18 99 10/24/17 19:02 72 18 10/24/17 19:01 134/61 10/24/17 18:57 70 18 100 10/24/17 18:57 70 18 10/24/17 18:56 123/75 10/24/17 18:55 73 13 10/24/17 18:55 72 13 100 10/24/17 18:51 117/61 10/24/17 18:50 69 17 10/24/17 18:50 69 17 99 10/24/17 18:46 125/58 10/24/17 18:45 67 13 10/24/17 18:45 66 13 100 10/24/17 18:41 108/60 10/24/17 18:40 74 15 98 10/24/17 18:40 73 15 10/24/17 18:36 116/58 10/24/17 18:35 68 11 10/24/17 18:35 66 11 100 10/24/17 18:31 104/60 10/24/17 18:30 70 15 10/24/17 18:30 67 15 99 10/24/17 18:30 36.5 66 16 104/60 (72) 97 Oxymask 10 10/24/17 17:45 36.4 74 18 136/74 (94) 93 Room Air 10/24/17 12:23 36.6 66 18 119/62 Room Air 97 Laboratory Results 24 Hours: Test 10/24/17 23:22 Hematocrit 31.0 % Hemoglobin 10.4 g/dL Assessment & Plan Assessment: POD #1, Right knee I&D, Medial retinaculum and Quad tendon repairs, s/p Rt TKA. Plan: PT/ OT- WBAT with Immobilizer DVT proph- Xarelto D/C planning- Home w OPPT As per medicine. Intra op gram stain- Mod WBC's, NO organisms. Cultures- Pending. Inhouse Planning Pain Management: Ultram, Morphine, PO Tylenol, Oxy IR DVT Prophylaxis: TEDs, SCDs, Xarelto Discharge Planning Discharge Planning: home with oppt Pain Management: PO Tylenol, Oxy IR DVT Prophylaxis: TEDs, Xarelto Therapy: Physical Therapy, Occupational Therapy
--- NOTE | 2017-10-25 17:18 | Progress Note ---
Internal Med Progress Note Date of Service: Oct 25, 2017. Provider Documentation: SUBJECTIVE: The patient was seen and examined Denies any Chest pain,palpitation ,sob No abdominal pain,nausea and or vomiting OBJECTIVE: Vital Signs-as noted below Exam: General-no distress at rest Eyes-normal ENT-normal Neck-supple Lungs-clear to ausucltate bilaterally Heart-Regular Abdomen-Benign,no masses,bowel sound present Extremities-No edema Left Knee is in Bandage Neuro-AAOx3 Lab data as noted below. ASSESSMENT & PLAN: Hypertensive urgency Multifactorial :uncontrolled postop pain, history of right knee surgery No associated symptoms BP is trending down Continue current medication Acute Blood Loss Anemia Hemoglobin stable at 10 Patient asymptomatic. Monitor H/H Hyperglycemia likely secondary to dextrose containing IVF, ehsan-op steroids. Blood sugars -reasonable Asthma, past tobacco abuse. Asthma well controlled as per patient. No Wheezing and or SOB DVT prophylaxis, Xarelto. DISPOSITION Medically stable Vital Signs: Date Time Temp Pulse Resp B/P (MAP) Pulse Ox O2 Delivery O2 Flow Rate FiO2 10/25/17 14:50 38.1 81 16 165/73 (103) 93 Room Air 10/25/17 11:25 37.1 81 16 160/77 (104) 95 Room Air 10/25/17 07:50 Room Air 10/25/17 07:02 36.4 85 16 161/80 (107) 93 Room Air 10/25/17 03:35 36.7 94 16 157/79 (105) 96 Room Air 10/25/17 00:15 104 16 176/82 (113) 10/25/17 00:15 Room Air 10/24/17 22:38 36.6 101 18 184/92 (122) 94 Room Air 10/24/17 21:49 36.7 100 18 176/85 (115) 96 Room Air 10/24/17 20:48 36.4 97 18 175/89 (117) 95 Room Air 10/24/17 20:15 36.0 80 14 142/73 (96) 92 Room Air Oxymask 10/24/17 19:45 Room Air Oxymask 10/24/17 19:45 Room Air 10/24/17 19:27 68 12 98 10/24/17 19:27 69 12 10/24/17 19:26 126/61 10/24/17 19:22 72 11 99 10/24/17 19:22 71 11 10/24/17 19:21 117/65 10/24/17 19:17 69 13 10/24/17 19:17 69 13 99 10/24/17 19:16 126/57 10/24/17 19:13 68 13 10/24/17 19:13 67 13 99 10/24/17 19:11 128/60 10/24/17 19:08 66 14 99 10/24/17 19:08 67 14 10/24/17 19:06 129/71 10/24/17 19:05 36.8 75 17 126/57 (81) 99 Nasal Cannula 2 Oxymask 10/24/17 19:03 68 17 10/24/17 19:03 66 17 100 10/24/17 19:02 70 18 99 10/24/17 19:02 72 18 10/24/17 19:01 134/61 10/24/17 18:57 70 18 100 10/24/17 18:57 70 18 10/24/17 18:56 123/75 10/24/17 18:55 73 13 10/24/17 18:55 72 13 100 10/24/17 18:51 117/61 10/24/17 18:50 69 17 10/24/17 18:50 69 17 99 10/24/17 18:46 125/58 10/24/17 18:45 67 13 10/24/17 18:45 66 13 100 10/24/17 18:41 108/60 10/24/17 18:40 74 15 98 10/24/17 18:40 73 15 10/24/17 18:36 116/58 10/24/17 18:35 68 11 10/24/17 18:35 66 11 100 10/24/17 18:31 104/60 10/24/17 18:30 70 15 10/24/17 18:30 67 15 99 10/24/17 18:30 36.5 66 16 104/60 (72) 97 Oxymask 10 10/24/17 17:45 36.4 74 18 136/74 (94) 93 Room Air Lab Results: Results Past 24 Hours Test 10/24/17 18:35 10/24/17 23:22 Range/Units Bedside Glucose 109 70-99 mg/dl White Blood Count 7.83 4.8-10.8 K/uL Red Blood Count 3.23 4.7-6.1 M/uL Hemoglobin 10.4 14.0-18.0 g/dL Hematocrit 31.0 42-52 % Mean Corpuscular Volume 96.0 80-100 fL Mean Corpuscular Hemoglobin 32.2 25-34 pg Mean Corpuscular Hemoglobin Concent 33.5 32-36 g/dl RDW Standard Deviation 54.9 36.4-46.3 fL RDW Coefficient of Variation 15.4 11.5-14.5 % Platelet Count 209 130-400 K/uL Mean Platelet Volume 9.0 7.4-10.4 fL Sodium Level 137 136-145 mmol/L Potassium Level 4.4 3.5-5.1 mmol/L Chloride Level 107 98-107 mmol/L Carbon Dioxide Level 24 21-32 mmol/L Anion Gap 6.0 3-11 mmol/L Blood Urea Nitrogen 23 7-18 mg/dl Creatinine 1.08 0.60-1.40 mg/dl Est Creatinine Clear Calc Drug Dose 68.2 ml/min Estimated GFR () 78.0 Estimated GFR (Non- 67.3 BUN/Creatinine Ratio 21.6 10-20 Random Glucose 203 70-99 mg/dl Calcium Level 8.4 8.5-10.1 mg/dl Magnesium Level 1.9 1.8-2.4 mg/dl Microbiology Results 10/24/17 Gram Stain - Final, Resulted 10/24/17 Bacterial Culture - Preliminary, Resulted NO GROWTH TO DATE.
[2017-10-25] MEDS: CLONIDINE HCL 0.1 MG TAB PO PRN (19:10)
[2017-10-25] MEDS: SENNA 8.6 MG TAB PO SCH (21:51)
[2017-10-25] MEDS: SIMVASTATIN 20 MG TAB PO SCH (21:51)
[2017-10-25] MEDS: ESCITALOPRAM OXALATE 20 MG TAB PO SCH (21:51)
[2017-10-25] MEDS: MONTELUKAST SOD 10 MG TAB PO SCH (21:51)
[2017-10-26] MEDS: OXYCODONE HCL IR 5 MG TAB (IMMEDIATE RELEASE) PO PRN ×2 (03:24→08:59)
[2017-10-26] MEDS: ACETAMINOPHEN 500 MG TAB PO SCH (05:09)
[2017-10-26 06:02] LABS: HEMATOCRIT 29.4 % (42-52); MEAN CELL VOLUME 95.5 fL (80-100); MEAN CORPUSCULAR HEMOGLOBIN 30.2 pg (25-34); MEAN CORPUSCULAR HGB CONC 31.6 g/dl (32-36); MEAN PLATELET VOLUME 9.3 fL (7.4-10.4); PLATELET COUNT 237 K/uL (130-400); RED BLOOD COUNT 3.08 M/uL (4.7-6.1); WHITE BLOOD COUNT 11.23 K/uL (4.8-10.8)
[2017-10-26 06:33] LABS: BUN/CREATININE RATIO 19.6 (10-20); CALCIUM 8.4 mg/dl (8.5-10.1); CREATININE 1.08 mg/dl (0.60-1.40); POTASSIUM 4.1 mmol/L (3.5-5.1)
[2017-10-26 07:50] VITALS: BP_SYST 160; BP_SYST 162; BP_DIAS 81; BP_DIAS 90; PULSE 76; TEMP 36.7; O2SAT 94
[2017-10-26 08:00] VITALS: O2SAT 94
--- NOTE | 2017-10-26 08:27 | Orthopedic Progress Note ---
Orthopedic Progress Note Date of Service Oct 26, 2017. Subjective Post OP Day: 2 Reports: feeling well, pain controlled w PO medications, Denies: complaints, chest pain, SOB, nausea / vomiting, light headedness, calf pain Objective calves soft nontender, N/V intact, capillary refill less than 2 sec., incision C /D/I, A&O x3, toes mobile Date Time Temp Pulse Resp B/P (MAP) Pulse Ox O2 Delivery O2 Flow Rate FiO2 10/26/17 08:00 94 Room Air 10/26/17 07:50 36.7 76 12 160/90 (113) 94 Room Air 162/81 (108) 10/26/17 07:25 Room Air 10/26/17 00:15 Room Air 10/25/17 23:25 36.8 74 16 147/73 (97) 96 Room Air 10/25/17 20:00 75 145/75 (98) 10/25/17 19:02 37.0 74 16 174/80 (111) 94 Room Air 10/25/17 16:59 37.0 77 178/86 (116) 10/25/17 15:55 Room Air 10/25/17 14:50 38.1 81 16 165/73 (103) 93 Room Air 10/25/17 11:25 37.1 81 16 160/77 (104) 95 Room Air Laboratory Results 24 Hours: Test 10/26/17 05:36 Hematocrit 29.4 % Hemoglobin 9.3 g/dL Assessment & Plan Assessment: POD #2, Right knee I&D, Medial retinaculum and Quad tendon repairs, s/p Rt TKA. Plan: PT/ OT- WBAT with Immobilizer DVT proph- Xarelto D/C planning- Home w OPPT today As per medicine. Intra op gram stain- Mod WBC's, NO organisms. Cultures- No growth Inhouse Planning Pain Management: Ultram, Morphine, PO Tylenol, Oxy IR DVT Prophylaxis: TEDs, SCDs, Xarelto Discharge Planning Discharge Planning: home with oppt Pain Management: PO Tylenol, Oxy IR DVT Prophylaxis: TEDs, Xarelto Therapy: Physical Therapy, Occupational Therapy
[2017-10-26] MEDS ORDERED: XRL10 PO (08:29)
[2017-10-26] MEDS ORDERED: ACET-24 PO (08:29)
[2017-10-26] MEDS ORDERED: RXC5 PO (08:29)
--- NOTE | 2017-10-26 08:34 | Discharge Instructions ---
Discharge Instructions Date of Service Oct 26, 2017. Admission Reason for Admission: Right Knee Retinacular Rupture S/P Tka Discharge Discharge Diagnosis / Problem: Right knee retinacular repair/ quad repair s/p TKA Discharge Goals Goal(s): Improve function Activity Recommendations Activity Limitations: as noted below . Instructions / Follow-Up Instructions / Follow-Up ACTIVITY RECOMMENDATIONS: SELF CARE INSTRUCTIONS AFTER TOTAL KNEE REPLACEMENT A. You may need to continue a physical therapy program after discharge from the hospital. There are several options available to you. Your doctor will assist you in selecting the best one for you. 1. An out-patient facility 2 to 3 times a week for therapy or home therapy. 2. Continue working on all exercises taught to you in the hospital. B. You may progress at your own pace from walking with a walker or crutches to a cane; then to no assistive devices. C. Make walking a part of your daily routine. Be up as much as comfortable with rest periods throughout the day. Rest with leg elevation is very important. Use the ice wrap frequently for the first 3-4 weeks. D. There are no restrictions on activities. You may ride in a car, shop, participate in stacking machine operator and all social activities. E. Wear the long elastic stockings (BURT hose) 20 hours a day for 2 weeks after surgery. They can be removed several times a day for laundering and for a bath. F. You may shower, no tub baths until cleared by your doctor. SPECIAL CARE INSTRUCTIONS: VERY IMPORTANT TO READ AND REVIEW A. There are a few signs you need to watch for after you are home. Call [facility] if you notice any of the followin. Increased severe knee pain. Some pain is expected especially when you exercise. 2. Increased swelling in your leg or knee; pain or swelling of the calf muscle in either lower leg. 3. Any fluid drainage from the incision. 4. Shortness of breath or chest pain. B. Please call [facility] at if you have any concerns or questions about your operation or recovery. The doctor or his nurse will return your call promptly. C. You must take antibiotics before dental work, bladder, bowel or other surgery. Your doctor will provide you with a permanent care to carry describing this precaution. IMPORTANT: * REMEMBER TO TAKE ASPIRIN, 81 MG, TWICE DAILY FOR 4 WEEKS UNLESS OTHERWISE DIRECTED. THIS IS YOUR BLOOD THINNER. * HIGH RISK PATIENTS MAY BE PRESCRIBED A STRONGER BLOOD THINNER. THIS WILL BE PROVIDED AT DISCHARGE. PATIENT ON XARELTO TRANSMITTED TO PHARMACY ON FILE. * CALL IF INCREASED PAIN, REDNESS, DRAINAGE OR FEVER GREATER THAT 101. * WEAR BURT HOSE 20 HOURS PER DAY FOR 2 WEEKS. * YOU MAY HAVE A LARGE BAND-AID LIKE DRESSING (SILVERON). THIS WILL REMAIN ON YOUR INCISION FOR 7 DAYS, THEN CAN BE REMOVED. IF INCISION IS LEAKING THROUGH DRESSING, CALL THE OFFICE . FOLLOW UP VISIT: If appointment is not already scheduled: Please call [facility] to make a follow-up appointment for 2 weeks after your surgery at . IMMOBILIZER OR BRACE AT ALL TIMES WITH KNEE LOCKED IN FULL EXTENSION, DO NOT BEND YOUR KNEE. MAY WEIGHT BEAR TOLERATED WITH WALKER. PLEASE COLLEGE COACH A NEW BRACE TODAY AFTER DISCHARGE FROM [facility]. Current Hospital Diet Patient's current hospital diet: AHA Diet (Heart Healthy) Discharge Diet Recommended Diet: Regular Diet Procedures Procedures Performed: Right Knee Retinacular Repair and Quadriceps Tendon Repair Pending Studies Studies pending at discharge: no Laboratory Results Hemoglobin A1c Test 10/23/17 12:17 Range/Units Estimated Average Glucose 100 mg/dl Hemoglobin A1c 5.1 4.5-5.6 % Medical Emergencies . Who to Call and When: Medical Emergencies: If at any time you feel your situation is an emergency, please call 911 immediately. . Non-Emergent Contact Non-Emergency issues call your: Primary Care Provider . "Provider Documentation" section prepared by Evans Medina. . VTE Core Measure Inpt VTE Proph given/why not?: Other Anticoagulation (XARELTO), TTom Bonner, SCD's [place] Drug Monitoring Program Search Results: patient reviewed within database, no issues identified
[2017-10-26] MEDS: MULTIVITAMIN TAB PO SCH (08:56)
[2017-10-26] MEDS: FLUTICASONE PROPIONATE NA SPR 16 GM BTL SCH (08:56)
[2017-10-26] MEDS: RIVAROXABAN 10 MG TAB PO SCH (08:57)
[2017-10-26] MEDS: CLONIDINE HCL 0.1 MG TAB PO PRN (08:57)
[2017-10-26] MEDS: SALMETEROL XINAFOATE 50MCG 28 BLISTER INH INH SCH (08:57)
[2017-10-26] MEDS: CETIRIZINE HCL 10 MG TAB PO SCH (08:57)
[2017-10-26] MEDS: LISINOPRIL 40 MG TAB PO SCH (08:57)
[2017-10-26] MEDS: DOCUSATE SODIUM 100 MG CAP PO SCH (09:00)
[2017-10-26 09:41] VITALS: TEMP 36.7; O2SAT 94
[2017-10-26 10:09] VITALS: BP 129/70; PULSE 74
--- NOTE | 2017-10-26 10:40 | Progress Note ---
Internal Med Progress Note Date of Service: Oct 26, 2017. Provider Documentation: SUBJECTIVE: The patient was seen and examined Denies any Chest pain,palpitation ,sob BP has been high without any symptoms OBJECTIVE: Vital Signs-as noted below Exam: General-no distress at rest Eyes-normal ENT-normal Neck-supple Lungs-clear to ausucltate bilaterally Heart-Regular Abdomen-Benign,no masses,bowel sound present Extremities-No edema Left Knee is in Bandage Neuro-AAOx3 Lab data as noted below. ASSESSMENT & PLAN: Hypertensive urgency Multifactorial :uncontrolled postop pain, history of right knee surgery No associated symptoms BP is trending down Continue current medication BP remains high-Atenolol increased to 50mg /day Continue Atenolol 50mg Daily on discharge Acute Blood Loss Anemia Hemoglobin stable at 10 Patient asymptomatic. Monitor H/H-remains >9 Hyperglycemia likely secondary to dextrose containing IVF, ehsan-op steroids. Blood sugars -reasonable Asthma, past tobacco abuse. Asthma well controlled as per patient. No Wheezing and or SOB DVT prophylaxis, Xarelto. DISPOSITION Medically stable Vital Signs: Date Time Temp Pulse Resp B/P (MAP) Pulse Ox O2 Delivery O2 Flow Rate FiO2 10/26/17 10:09 74 129/70 (89) 10/26/17 09:41 36.7 76 12 94 Room Air 10/26/17 08:00 94 Room Air 10/26/17 07:50 36.7 76 12 160/90 (113) 94 Room Air 162/81 (108) 10/26/17 07:25 Room Air 10/26/17 00:15 Room Air 10/25/17 23:25 36.8 74 16 147/73 (97) 96 Room Air 10/25/17 20:00 75 145/75 (98) 10/25/17 19:02 37.0 74 16 174/80 (111) 94 Room Air 10/25/17 16:59 37.0 77 178/86 (116) 10/25/17 15:55 Room Air 10/25/17 14:50 38.1 81 16 165/73 (103) 93 Room Air 10/25/17 11:25 37.1 81 16 160/77 (104) 95 Room Air Lab Results: Results Past 24 Hours Test 10/26/17 05:36 Range/Units White Blood Count 11.23 4.8-10.8 K/uL Red Blood Count 3.08 4.7-6.1 M/uL Hemoglobin 9.3 14.0-18.0 g/dL Hematocrit 29.4 42-52 % Mean Corpuscular Volume 95.5 80-100 fL Mean Corpuscular Hemoglobin 30.2 25-34 pg Mean Corpuscular Hemoglobin Concent 31.6 32-36 g/dl RDW Standard Deviation 54.9 36.4-46.3 fL RDW Coefficient of Variation 15.6 11.5-14.5 % Platelet Count 237 130-400 K/uL Mean Platelet Volume 9.3 7.4-10.4 fL Sodium Level 138 136-145 mmol/L Potassium Level 4.1 3.5-5.1 mmol/L Chloride Level 105 98-107 mmol/L Carbon Dioxide Level 28 21-32 mmol/L Anion Gap 6.0 3-11 mmol/L Blood Urea Nitrogen 21 7-18 mg/dl Creatinine 1.08 0.60-1.40 mg/dl Est Creatinine Clear Calc Drug Dose 68.2 ml/min Estimated GFR () 78.0 Estimated GFR (Non- 67.3 BUN/Creatinine Ratio 19.6 10-20 Random Glucose 88 70-99 mg/dl Calcium Level 8.4 8.5-10.1 mg/dl
--- NOTE | 2017-10-26 13:19 | DISCHARGE SUMMARY ---
DISCHARGE DIAGNOSES: Medial retinacular and quadriceps tendon ruptures with complete disruption of quadriceps tendon with hematoma, hemarthrosis, status post revision right total knee arthroplasty. SECONDARY DIAGNOSES: Hypertension and asthma. CONSULTS: Dr. Hector Irving. COMPLICATIONS: None. PROCEDURES: The medial retinaculum and quadriceps tendon repair with irrigation and debridement of right knee joint, status post total knee arthroplasty by Dr. Zelaya on 10/24/2017. BRIEF HISTORY: As dictated in the history and physical. HOSPITAL SUMMARY: The patient was admitted on the above-noted date and had the above-noted surgery performed, which he tolerated well. On his first postoperative day, he was feeling well and pain was controlled. He had no complaints. Calves were soft, nontender, and neurovascularly intact. Dressings were clean, dry and intact. Toes were mobile. Vital signs showed systolic blood pressures, fluctuating up and down, which were treated accordingly by the medicine service. Hemoglobin was 10.4 and he was started on physical therapy protocol and weightbearing as tolerated with immobilizer. DVT prophylaxis with Xarelto and planning for outpatient PT upon discharge and continued on medical management. By his second postoperative day, he continued to feel well and pain was controlled. Calves were soft and nontender. Neurovascularly intact. Incision was clean, dry and intact. Toes were mobile. Vital signs were stable. Hemoglobin was 9.3 and he was progressing with his physical therapy and remaining medically stable. Cultures were showing no growth, no organisms and moderate WBCs and it was felt he could be discharged to home. For further review, please see chart. LAB AND X-RAY DATA: As per chart. DISCHARGE INSTRUCTIONS: The patient was discharged to home in satisfactory condition on 10/26/2017. DIET: Regular. ACTIVITY: Follow TKA instruction sheets and special care instructions as noted and follow up with Dr. Zelaya in 2 weeks. The patient is to wear immobilizer bracing at all times with knee locked in full extension and do not bend the knee. He may weightbear as tolerated with walker. Please pickup a new brace today after discharge from [facility] office in [place]. DISCHARGE MEDICATIONS: Acetaminophen 1000 mg p.o. q. 8 hours for 21 days, oxycodone 5-10 mg p.o. q. 4 hours p.r.n., and rivaroxaban 10 mg p.o. every day for 14 days. Resume home meds as listed and discharge instructions section and stop taking previous acetaminophen dosage and stop taking b.i.d. aspirin dose. MTDD
--- NOTE | 2017-10-31 06:38 | EDITING REQUIRED CODING QUERY ---
CODING QUERY To promote full compliance with coding requirements relating to patient care, provider participation is requested in all cases of flake cutter operator uncertainty. Please assist us with the question(s) below: Coding Question(s): Patient 1 month status post TKA revision. performed a Quadriceps SNIP during procedure. Patient was doing well, then pushed up stairs prior to this readmission , feeling a pop feeling with resultant swelling. * Knee Medial retinacular and Quadriceps ruptures identified - and repaired during this current admission. Please document the etiology of the muscle/tendon ruptures. Thanks for your help! 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 ____ Principal Diagnosis: "_that condition established after study, to be chiefly responsible for occasioning the admission of the patient to the hospital for care." Co-Existing Principal Diagnosis: "_when two or more diagnoses equally meet the criteria for principal diagnosis as determined by the circumstances of admission, diagnostic work up, and/or therapy provided, and the Alphabetic Index, Tabular List, or another coding guideline does not provide sequencing direction, any one of the diagnoses may be sequenced first." "When the physician has documented what appears to be a current diagnosis in the body of the record, but has not included the diagnosis in the final diagnostic statement, the physician should be asked whether the diagnosis should be added." (Source Coding [facility] 2 QTR90. p3-4)
== END 2017-10-26 11:40 | disposition home or self-care (01) | DRG 488 ==
LOC: C.ACU 11:42 → C.3E 12:53 → ENRESERV 19:06
PROVIDERS: ADMIT Orthopaedic Surgery Sports Medicine; ATTEND Orthopaedic Surgery Sports Medicine
PROC: 0MDN0ZZ Extraction of Right Knee Bursa and Ligament, Open Approach (ICD-10-PCS; principal; 2017-10-24 07:00)
PROC: 0LQL0ZZ Repair Right Upper Leg Tendon, Open Approach (ICD-10-PCS; principal; 2017-10-24 07:00)
PROC: 0S9C0ZZ Drainage of Right Knee Joint, Open Approach (ICD-10-PCS; principal; 2017-10-24 07:00)
PROC: 0LQQ0ZZ Repair Right Knee Tendon, Open Approach (ICD-10-PCS; principal; 2017-10-24 07:00)
DX: S76.111A Strain of right quadriceps muscle, fascia and tendon, initial encounter (principal); D62 Acute posthemorrhagic anemia; M25.061 Hemarthrosis, right knee; Z96.651 Presence of right artificial knee joint; I10 Essential (primary) hypertension; J45.909 Unspecified asthma, uncomplicated; B90 Sequelae of tuberculosis; Z79.82 Long term (current) use of aspirin; I16.0 Hypertensive urgency; T38.0X5A Adverse effect of glucocorticoids and synthetic analogues, initial encounter; Z87.891 Personal history of nicotine dependence; R73.09 Other abnormal glucose; T50.3X5A Adverse effect of electrolytic, caloric and water-balance agents, initial encounter; Z91.040 Latex allergy status; Y92.239 Unspecified place in hospital as the place of occurrence of the external cause; X50.9XXA Other and unspecified overexertion or strenuous movements or postures, initial encounter; Y92.018 Other place in single-family (private) house as the place of occurrence of the external cause

== ENCOUNTER 2019-11-25 06:27 | Inpatient (IN) ==
--- NOTE | 2019-10-28 16:27 | PAT Medication Instructions ---
Medication Instructions Date of Service October 28, 2019 Home Medications ascorbic acid (vitamin C) 500 mg PO QAM atenolol 25 mg PO QAM cetirizine [Zyrtec] 10 mg PO QAM cholecalciferol (vitamin D3) 5,000 unit PO DAILY clotrimazole [Athletic Foot Cream] 1 applic TOPICAL DAILY escitalopram oxalate 20 mg PO HS fluticasone propion-salmeterol [Advair Diskus] 1 inh INHALATION BID lisinopril 40 mg PO QAM meloxicam 15 mg PO QAM mometasone 2 spray INTRANASAL QAM montelukast 10 mg PO HS multivitamin 1 cap PO DAILY simvastatin 20 mg PO HS vitamin K2 100 mcg PO DAILY ASK your surgeon for instructions meloxicam 15 mg PO QAM STOP taking 24 hours before surgery clotrimazole [Athletic Foot Cream] 1 applic TOPICAL DAILY DO NOT take the morning of surgery ascorbic acid (vitamin C) 500 mg PO QAM cetirizine [Zyrtec] 10 mg PO QAM cholecalciferol (vitamin D3) 5,000 unit PO DAILY lisinopril 40 mg PO QAM multivitamin 1 cap PO DAILY vitamin K2 100 mcg PO DAILY Take morning of surgery With a small sip of water, OTHERWISE NOTHING TO EAT OR DRINK AFTER MIDNIGHT: atenolol 25 mg PO QAM cetirizine [Zyrtec] 10 mg PO QAM fluticasone propion-salmeterol [Advair Diskus] 1 inh INHALATION BID mometasone 2 spray INTRANASAL QAM Take evening before surgery escitalopram oxalate 20 mg PO HS fluticasone propion-salmeterol [Advair Diskus] 1 inh INHALATION BID montelukast 10 mg PO HS simvastatin 20 mg PO HS Other Notes If you have any questions please call us at [phone] or [phone] or [phone] or [phone]
--- NOTE | 2019-10-29 13:05 | Anesthesiology Consultation ---
Date of Service October 29, 2019 Assessment & Plan (1) Encounter for pre-operative examination: Chart Review Chart Review: Acceptable Risk for Surgery (PENDING PCP CLEARANCE) and Patient seen in Pre Admission Testing Teaching & Discussion Instructed NPO after midnight before surgery, except medications with 15 cc of water. Medication instructions provided according to the PAT guidelines. History Surgery Operation Date: 11/25/19 10:15 Proposed Procedures p Left Total Hip Arthroplasty Anterior - Robin Brizuela DO Height/Weight Height: 5 ft 8 in Weight: 99.2 kg Allergies Allergy/AdvReac Type Severity Reaction Status Date / Time ceftriaxone Allergy Unknown RASH/HIVES Verified 10/23/19 10:28 Cephalosporins Allergy Unknown RASH Verified 10/23/19 10:28 clindamycin Allergy Unknown RASH HIVES Verified 10/23/19 10:28 latex Allergy Unknown RASH Verified 10/23/19 10:28 orange Allergy Unknown ORANGES OR Verified 10/23/19 10:28 JUICE-DRY SKIN,WHEEZING pollen extracts Allergy Unknown POLLEN,GRASS Verified 10/23/19 10:28 HAYFEVER AGGRAVATES ASTHMA Medications Home Medications Medication Instructions Recorded Confirmed Last Taken ascorbic acid (vitamin C) [Vitamin 500 mg PO QAM 10/23/19 10/23/19 Unknown C] atenolol 25 mg PO QAM 10/23/19 10/23/19 Unknown cetirizine [Zyrtec] 10 mg PO QAM 10/23/19 10/23/19 Unknown cholecalciferol (vitamin D3) 5,000 unit PO DAILY 10/23/19 10/23/19 Unknown [Vitamin D3] clotrimazole [Athletic Foot Cream] 1 applic TOPICAL DAILY 10/23/19 10/23/19 Unknown escitalopram oxalate 20 mg PO HS 10/23/19 10/23/19 Unknown fluticasone propion-salmeterol 1 inh INHALATION BID 10/23/19 10/23/19 Unknown [Advair Diskus] lisinopril 40 mg PO QAM 10/23/19 10/23/19 Unknown meloxicam 15 mg PO QAM 10/23/19 10/23/19 Unknown mometasone 2 spray INTRANASAL QAM 10/23/19 10/23/19 Unknown montelukast 10 mg PO HS 10/23/19 10/23/19 Unknown multivitamin 1 cap PO DAILY 10/23/19 10/23/19 Unknown simvastatin 20 mg PO HS 10/23/19 10/23/19 Unknown vitamin K2 100 mcg PO DAILY 10/23/19 10/23/19 Unknown Past Medical History Medical History Depression Diverticulosis History of cellulitis X3 IN HX - MOST RECENT 2003. 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 Lumbar spinal stenosis L4 Obesity Osteoarthritis Exercise / Class Metabolic Activity II 4-5 Yardwork/Stairs/Walk up hill (Denies CP or SOB with 1 FOS) Past Family History Family History Sister Family history of diabetes mellitus Family history of lymphoma Sister Family history of diabetes mellitus Family history of lymphoma Past Surgical History Surgical History History of colonoscopy History of hip surgery R HIP FUSION History of neck surgery TODDLER, SURGERY TO LFORY SWOLLEN GLANDS History of revision of total replacement of left knee joint History of revision of total replacement of right knee joint History of rotator cuff surgery L X 2 History of tonsillectomy History of total left knee replacement History of total right knee replacement Past Anesthesia History No Hx of Anesthesia Complications and No Family Hx of Anesthesia Complications History of PONV No Hx of PONV and No Hx of Motion Sickness Social History Smoking Status: Former smoker tobacco type: cigarettes Do You Dip or Chew Tobacco: No Smoking End Date: 1979 Hx Alcohol Use: Yes alcohol intake frequency: holidays/special occasions only Hx Substance Use: No substance use type: does not use Review of Systems Pt denies any recent chest pain, shortness of breath, palpitations, cough, fever or URI. Physical Exam Vital Signs BP: 145/75 P: 62bpm SPO2: 94% RA T: 98.0 F R: 18 ENMT Mouth: + dental restorations (2 crowns upper L cuspid and lower L molar) and + chipped teeth (upper L incisor); no loose teeth Thyromental Distance: > or= 3.5 Finger Breadths (3.5) Mallampati Class: III Neck + short neck and + facial hair (short wylie); neck extension not limited Respiratory normal respiratory effort Auscultation: + crackles (soft exp/insp in B/L bases, otherwise CTA) Cardiovascular Rate/Rhythm: regular rate and regular rhythm Heart Sounds: no murmur Vessels: no carotid bruit Extremities: no edema Skin ~2inch x 2 inch irregular patch of ecchymosis on LUE. Pt states he dropped a large piece of wood on his arm yesterday. Testing Laboratory Results 10/29/19 12:53 10/29/19 12:53 PT 10.2 Seconds (9.0-12.0) 10/29/19 12:53 INR 1.0 (0.9-1.1) 10/29/19 12:53 APTT 25.7 Seconds (21.0-31.0) 10/29/19 12:53 Hemoglobin A1c 5.8 % (4.5-5.6) H 10/29/19 12:53 Urine Color Dark Yellow 10/29/19 12:53 Urine Appearance Cloudy (Clear) A 10/29/19 12:53 Urine pH 5.0 (4.5-7.5) 10/29/19 12:53 Ur Specific [place] 1.028 (1.000-1.030) 10/29/19 12:53 Urine Protein 1+ (Negative) H 10/29/19 12:53 Urine Glucose (UA) Negative (Negative) 10/29/19 12:53 Urine Ketones Negative (Negative) 10/29/19 12:53 Urine Nitrite Negative (Negative) 10/29/19 12:53 Ur Leukocyte Esterase Negative (Negative) 10/29/19 12:53 Urine WBC (Auto) 10-30 /hpf (0-5) H 10/29/19 12:53 Urine RBC (Auto) 0-4 /hpf (0-4) 10/29/19 12:53 U Hyaline Cast (Auto) 5-10 /lpf (0-5) H 10/29/19 12:53 U Epithel Cells (Auto) >30 /lpf (0-5) H 10/29/19 12:53 Urine Bacteria (Auto) Negative (Negative) 10/29/19 12:53 Blood Type O Positive 10/29/19 12:53 Antibody Screen NEGATIVE 10/29/19 12:53 Electrocardiogram Date: 10/29/19 Findings: + SB @ (59) Chest X-Ray Date: 10/29/19 Findings: + NAD
--- NOTE | 2019-10-29 13:54 | XRay Report ---
XR chest Pre-admission PA/Lat HISTORY: Preop. COMPARISON: Chest 09/26/2017. FINDINGS: Decrease in size in the focal density anterior to the lower thoracic spine on the lateral v iew only. This favors an osteophyte. Otherwise, lungs are clear. No pleural effusions. No pneumothora x. The heart is normal in size. IMPRESSION: No acute process. ACT 112: Negative or not required by law. Electronically signed by: Harshad Meraz M.D. 10/29/2019 1:53 PM
[2019-10-29 14:30] LABS: Basophils # (auto) 0.02 K/uL (0-0.2); Basophils % (auto) 0.3 %; Eosinophils # (auto) 0.22 K/uL (0-0.5); Hemoglobin 14.1 g/dL (14.0-18.0); Immature Granulocytes # (auto) 0.01 K/uL (0.00-0.02); Immature Granulocytes % (auto) 0.1 %; Lymphocytes # (auto) 1.06 K/uL (1.2-3.4); Lymphocytes % (auto) 14.2 %; Mean Corpuscular Hemoglobin 33.9 pg (25-34); Mean Corpuscular Hgb Conc 33.6 g/dL (32-36); Monocytes # (auto) 0.98 K/uL (0.11-0.59); Monocytes % (auto) 13.2 %; Neutrophils # (auto) 5.16 K/uL (1.4-6.5); Neutrophils % (auto) 69.2 %; Platelet Count 268 K/uL (130-400); RDW Coefficient of Variation 12.7 % (11.5-14.5); RDW Standard Deviation 46.6 fL (36.4-46.3); Red Blood Count 4.16 M/uL (4.7-6.1); White Blood Count 7.45 K/uL (4.8-10.8)
[2019-10-29 14:33] LABS: Appearance Urine Cloudy (Clear); Bacteria Urine Automated Negative (Negative); Bilirubin Urine Negative (Negative); Blood Urine Negative (Negative); Color Urine Dark Yellow; Epithelial Cell Urine Auto >30 /lpf (0-5); Glucose Urine UA Negative (Negative); Ketones Urine Negative (Negative); Leukocyte Esterase Urine Negative (Negative); Nitrite Urine Negative (Negative); Protein Urine 1+ (Negative); RBC Urine Automated 0-4 /hpf (0-4); Specific Gravity Urine 1.028 (1.000-1.030); Urobilinogen Urine Negative (Negative)
[2019-10-29 14:37] LABS: Albumin Level 3.9 gm/dl (3.4-5.0); BUN Creatinine Ratio 23.6 (10-20); Calcium 8.8 mg/dl (8.5-10.1); Creatinine Clr Calc Pharmacy 64.6 ml/min; Est GFR (African American) 74.4; Est GFR (Non-African American) 64.2; Potassium 4.6 mmol/L (3.5-5.1)
[2019-10-29 14:43] LABS: Partial Thromboplastin Ratio 0.9; Partial Thromboplastin Time 25.7 Seconds (21.0-31.0); Prothrombin Time 10.2 Seconds (9.0-12.0)
[2019-10-29 15:03] LABS: Sperm Urine Present (None Prsent)
[2019-10-30 05:40] LABS: Estimated Average Glucose 120 mg/dl; Hemoglobin A1C 5.8 % (4.5-5.6)
--- NOTE | 2019-11-23 10:56 | History & Physical Report ---
Date of Service November 23, 2019 Assessment & Plan (1) Degenerative joint disease of left hip: I have indicated the patient for left anterior total hip replacement. The risks, benefits and complications of surgery were explained to the patient which include but not limited to infection, acute blood loss, DVT/PE, injury to nerves, vessels, bone, soft tissue, arthrofibrosis, chronic pain, failure of the prosthesis, hip dislocation, leg length discrepancy, need for additional surgery, cardiac and pulmonary events and . The patient wished to proceed with surgery and informed consent was obtained at this time. We will plan for 81mg ASA BID post-operatively for DVT prophylaxis. Upon discharge the patient will be discharged home with home health services. Appropriate clearances by PCP were obtained. The patient was asymptomatic for UTI. History of Present Illness Chief Complaint: Left hip pain/djd Primary Care Provider: Gordo Richter The patient is a 74 year old male who presents with complaints of severe left hip pain and DJD. The patient has failed outpatient conservative treatments to this point which included NSAIDs, IA corticosteroid injection, home exercise/walking program. The patient's pain and limited function have progressed to the point where they severely hinder their activities of daily living and they no longer tolerate exercise programs. They are requesting to proceed with total hip replacement surgery. Allergies Allergy/AdvReac Type Severity Reaction Status Date / Time ceftriaxone Allergy Unknown RASH/HIVES Verified 11/25/19 07:28 Cephalosporins Allergy Unknown RASH Verified 11/25/19 07:28 clindamycin Allergy Unknown RASH HIVES Verified 11/25/19 07:28 latex Allergy Unknown RASH Verified 11/25/19 07:28 orange Allergy Unknown ORANGES OR Verified 11/25/19 07:28 JUICE-DRY SKIN,WHEEZING pollen extracts Allergy Unknown POLLEN,GRASS Verified 11/25/19 07:28 HAYFEVER AGGRAVATES ASTHMA Home Medications Home Medications Medication Instructions Recorded Confirmed Type ascorbic acid (vitamin C) [Vitamin 500 mg PO QAM 10/23/19 11/25/19 History C] atenolol 25 mg PO QAM 10/23/19 11/25/19 History cetirizine [Zyrtec] 10 mg PO QAM 10/23/19 11/25/19 History cholecalciferol (vitamin D3) 5,000 unit PO DAILY 10/23/19 11/25/19 History [Vitamin D3] clotrimazole [Athletic Foot Cream] 1 applic TOPICAL DAILY 10/23/19 11/25/19 History escitalopram oxalate 20 mg PO HS 10/23/19 11/25/19 History fluticasone propion-salmeterol 1 inh INHALATION BID 10/23/19 11/25/19 History [Advair Diskus] lisinopril 40 mg PO QAM 10/23/19 11/25/19 History meloxicam 15 mg PO QAM 10/23/19 11/25/19 History mometasone 2 spray INTRANASAL QAM 10/23/19 11/25/19 History montelukast 10 mg PO HS 10/23/19 11/25/19 History multivitamin 1 cap PO DAILY 10/23/19 11/25/19 History simvastatin 20 mg PO HS 10/23/19 11/25/19 History vitamin K2 100 mcg PO DAILY 10/23/19 11/25/19 History Past Med/Surg History Medical History Depression Diverticulosis History of cellulitis X3 IN HX - MOST RECENT 2003. 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 Lumbar spinal stenosis L4 Obesity Osteoarthritis Surgical History History of colonoscopy History of hip surgery R HIP FUSION History of neck surgery TODDLER, SURGERY TO FLORY SWOLLEN GLANDS History of revision of total replacement of left knee joint History of revision of total replacement of right knee joint History of rotator cuff surgery L X 2 History of tonsillectomy History of total left knee replacement History of total right knee replacement Family History Sister Family history of diabetes mellitus Family history of lymphoma Sister Family history of diabetes mellitus Family history of lymphoma Social History Preferred Language: Icelandic Communication Ability: Effective Property Maintenance Technician Required: No Beliefs That Will Affect Care: None Current Living Situation: Spouse Other Information That Helps Us Care for You: No Feels Safe at Home: Yes Smoking Status: Former smoker Tobacco Type: cigarettes ; Do You Dip or Chew Tobacco: No ; Smoking End Date: 1979 ; Hx Alcohol Use: Yes Hx Substance Use: No Review of Systems Review of Systems: All systems reviewed & are unremarkable except as noted in HPI & below Constitutional: as per Subjective / HPI Physical Exam Physical Exam: LLE NVSI +EHL/FHL/TA/GS SILT grossly, +2 DP pulse, compartments soft NT, limited painful ROM of the hip, antalgic gait. Constitutional: WD/WN, vitals as above Eyes: PERRL, conjunctivae normal, anicteric sclerae ENMT: external ear and nose normal, oropharynx normal Neck: trachea midline, no thyromegaly Respiratory: normal respiratory effort, lungs clear to auscultation Cardiovascular: RRR, no murmur, no edema Gastrointestinal (Abdomen): normal bowel sounds, soft, nontender, no hepatosplenomegaly Musculoskeletal: no cyanosis or clubbing, extremities motor strength 5/5 Skin: no rashes, warm and dry Neurologic: patellar DTR's 2+ bilat, sensation intact Psychiatric: A+Ox3, euthymic affect Lymphatic: no cervical or axillary lymphadenopathy Results & Data Diagnostic Findings Multiple views of the hip demonstrates severe DJD with complete loss of the joint space. +osteophytes, +sclerosis, +subchondral cysts.
[~2019-11-25 06:27] MED LIST changes: -ACET-1222 PO; -AMOX500T3 PO; -ASCO10003 PO; -ASPI81TA28 PO; -ATEN-173 PO; -CEFAZOLIN 1000MG IV PUSH 5 ML IV SCH; +CEFAZOLIN 2000MG 2,000 MG/15 ML SYR IV SCH; -CETI10TA10 PO; -CHOL1000 PO; -DEXAMETHASONE 4 MG TAB PO SCH; -ESCI1TAB10 PO; -FLUT1AER5 INH; -LACTATED RINGER'S 1000ML 1,000 ML IV SCH; -LACTATED RINGER'S 1000ML IV SCH; -LISI40TA PO; +LR 500ML BOLUS, THEN 15ML/HR IV SCH; -METOCLOPRAMIDE HCL 10 MG TAB PO SCH; +METOCLOPRAMIDE HCL 10 MG TABLET PO SCH; -MOME6000 INTNAS; -MONT1TAB3 PO; -MULT-506 PO; +ROPIVACAINE 0.5% HCL/PF 150 MG, BUPIVACAINE 0.5% MPF 30 ML, EPINEPHrine 30MG/30ML (OR U... INFIL SCH; -ROPIVACAINE 5MG/ML 30 ML 150 MG, BUPIVACAINE 0.5% MPF INJ 30 ML, EpINEphrine HCL INJ 0.... INFIL ONE; -SIMV20TA5 PO; -SRVDIN50 INH; -TERB1CRE32 TOP; +TRANEXAMIC ACID 1,000 MG **IV Intra-op IV SCH; +TRANEXAMIC ACID 1,000 MG **IV Pre-op IV SCH; -VANCOMYCIN INJ 1,500 MG in SODIUM CHLORIDE 0.9% 500ML 500 ML IV SCH; -VITA1TAB22 PO; -VNTHFA/IN INH; +dexAMETHasone 4 MG TAB PO SCH
[2019-11-25] MEDS ORDERED: BUPIVACAINE 0.5 % 5 MG/1 ML PF 10ML VIAL ONE (06:31)
[2019-11-25] MEDS ORDERED: fentaNYL citrate 100 MCG/2 ML VIAL ONE (08:01)
[2019-11-25] MEDS ORDERED: PROPOFOL IV EMULSION 10 MG/ML 20 ML VIAL IV ONE ×2 (08:01→12:06)
[2019-11-25] MEDS ORDERED: LIDOCAINE HCL 2% 2 ML VIAL/AMP(20MG/ML) INFIL ONE (08:01)
[2019-11-25] MEDS ORDERED: ePHEDrine sulfate 50 MG/ML SYR ONE (08:01)
[2019-11-25] MEDS ORDERED: PHENYLEPHRINE 100MCG/ML 5ML SYR ONE (08:01)
[2019-11-25] MEDS ORDERED: MIDAZOLAM HCL 1 MG/ML 2ML VIAL ONE ×2 (08:01)
[2019-11-25] MEDS ORDERED: VANCOMYCIN CONSULT ACTIVE PRN ×2 (08:03→13:50)
[2019-11-25] MEDS ORDERED: VANCOMYCIN HCL 1,500 MG in SODIUM CHLORIDE 0.9% 500 ML IV ONE (08:30)
[2019-11-25] MEDS ORDERED: ePHEDrine sulfate 50 MG/ML AMP IV PRN (09:32)
[2019-11-25] MEDS ORDERED: ONDANSETRON INJ 2 MG/ML 2 ML VIAL IV PRN ×2 (09:32→13:50)
[2019-11-25] MEDS ORDERED: ATROPINE SULFATE 0.1 MG/ML 10ML SYR IV PRN (09:32)
[2019-11-25] MEDS ORDERED: HYDROmorphone INJ 1 MG/ML SYRINGE IV PRN (09:32)
[2019-11-25] MEDS ORDERED: BACITRACIN INJ 50,000 UNIT VIAL ONE (09:45)
[2019-11-25] MEDS ORDERED: ORTHO JOINT ANESTHETIC ONE (09:45)
[2019-11-25] MEDS ORDERED: KETOROLAC TROMETHAMINE 15 MG/ML VIAL IV PRN (09:46)
--- NOTE | 2019-11-25 09:49 | History & Physical Bridge Note ---
Date of Service November 25, 2019 History & Physical Bridge Note I have examined the patient, reviewed the History & Physical and in the interval since the performance of the History & Physical I have noted the following changes of clinical significance: no changes noted
--- NOTE | 2019-11-25 12:08 | Post Operative Brief Note ---
Immediate Post Op Note v1 Date of Surgery November 25, 2019 Pre & Post Diagnosis Operation Date: 11/25/19 09:35 Pre-Op Diagnosis: LEFT HIP OSTEOARTHRITIS Post-Op Diagnosis: LEFT HIP OSTEOARTHRITIS I identified the patient and participated in the time-out.: Yes Procedure Operation Date: 11/25/19 09:35 Actual Procedures p Left Anterior Total Hip Arthroplasty- uncemented(Left) - Robin Brizuela DO Surgeon Robin Brizuela DO Strip Mill Operator Frank Licona Estimated Blood Loss 175 Findings Consistent with Post-Op Diagnosis Fluids 1200 cc LR Specimens femoral head Anesthesia Type Spinal MAC Complications none Disposition Disposition: Recovery Room Overlapping Procedure I was present for: the critical portions of procedure. I was immediately available: during the entire case. Back up surgeon: was not required during procedure.
--- NOTE | 2019-11-25 12:10 | Operative Report ---
Post Operative Report Pre & Post Diagnosis Operation Date: 11/25/19 09:35 Pre-Op Diagnosis: LEFT HIP OSTEOARTHRITIS Post-Op Diagnosis: LEFT HIP OSTEOARTHRITIS I identified the patient and participated in the time-out.: Yes Procedure Operation Date: 11/25/19 09:35 Actual Procedures p Left Anterior Total Hip Arthroplasty- uncemented(Left) - Robin Brizuela DO Surgeon Robin Brizuela DO Hide And Skin Classer Frank Licona Estimated Blood Loss 175 Findings Consistent with Post-Op Diagnosis Fluids 1200 cc LR Specimens femoral head Anesthesia Type Spinal MAC Complications none Disposition Disposition: Recovery Room Indications The patient is a 75-year-old male who presents with severe progressive left hip DJD who has failed outpatient conservative treatments. I indicated the patient for a anterior total hip replacement and the risks and benefits were explained in detail which include but not limited to infection, bleeding, blood clot, damage to surrounding bone, nerves, vessels, soft tissue, hip dislocation, failure of the prosthesis, leg length discrepancy, need for additional surgery and . The patient agreed to proceed with replacement of the hip and informed consent was obtained. Appropriate clearances were obtained. Description of Procedure COMPONENTS USED: [employer] hip system: Acetabulum size 52, femur size 9 high offset, femoral head 36-3, liner 5236, acetabular screw 25 mm x 1. DESCRIPTION OF PROCEDURE: Following satisfactory spinal anesthesia, the patient was placed supine on the OR table. The right leg was placed in the well leg chopra and the left leg in the traction device. The left leg was prepared with ChloraPrep and draped sterilely. A surgical timeout was performed, patient identified and site marissa verified. Appropriate antibiotics were given. A standard anterior approach in the interval between the sartorius and tensor muscles was performed. Dissection was carried down through subcutaneous tissues. Electrocautery was utilized for hemostasis. Circumflex femoral vessels were identified, tied and ligated. The anterior capsular fat pad was removed and the capsulotomy was performed revealing the arthritic femoral neck and head. A femoral neck cut was made with reciprocating saw and the bone fragments removed. The acetabular self-retraining retractor was placed. Acetabular reaming was completed under fluoroscopic guidance, a 52 shell was impacted into an anatomic position and secured with a dome screw. Local anesthetic was placed and following irrigation, the polyethylene liner was placed. The femur was placed into position of external rotation, extension and adduction. Femoral canal was prepared up to the size 9 high offset. Trial reduction with a -3 neck length head showed good soft tissue tension, leg lengths restored, and good fit and fill of the proximal canal using fluoroscopic landmarks. The hip was dislocated. The trial component was removed. The final implant was placed. The hip was irrigated with sterile saline solution and reduced. A Betadine soak was performed. After 3 minutes, the hip was once more irrigated with copious sterile saline solution with bacitracin. Jessica-incisional soft tissue was injected utilizing [place] [facility] which includes a combination of Ropivicaine 0.5% 150mg, Bupivicaine 0.5%/Epinephrine 1:200,000 30ml, Toradol 30mg, Dexamethasone 4mg, Ketamine 10mg, Clonidine 100mcg and NSS 30ml solution. The capsule was then closed with 1-0 Vicryl interrupted figure of eight sutures. The fascia was closed with a running suture of #1 Vicryl, the subcutaneous tissues with 2-0 Vicryl and the skin was closed with mckayla. A clean dry sterile dressing was applied which included Gayatri incisional VAC. The patient tolerated the procedure well and was transported to PACU in stable condition. Due to the complex nature of the procedure, the entire surgery was performed with the operational assistance of Frank licona PA-C. The outpatient physical therapist assistant, under direct supervision, was involved in the actual performance of all aspects of the surgical procedure including patient positioning, hemostasis, tissue retraction, instrument management and wound closure. I attest to the content of the Intraoperative Record and any orders documented therein. Any exceptions are noted below.
--- NOTE | 2019-11-25 12:21 | Fluoroscopy Report ---
FL hip LT 1V CLINICAL HISTORY: LT ANTERIOR TOTAL HIP COMPARISON STUDY: None FLUOROSCOPY TIME: 39 seconds. NUMBER OF FLUOROSCOPIC IMAGES: 1 FINDINGS: A single intraoperative fluoroscopic spot radiograph demonstrates a total left hip arthropl asty. There is no dislocation. IMPRESSION: Intraoperative fluoroscopic spot image demonstrating a total left hip arthroplasty ACT 112: Negative or not required by law. Electronically signed by: Bud Smith M.D. 11/25/2019 12:20 PM
--- NOTE | 2019-11-25 13:14 | XRay Report ---
XR hip 1V LT w pelvis CLINICAL HISTORY: 74 years-old Male presenting with IN PACU - A/P PELVIS and LATERAL HIP . TECHNIQUE: Single frontal view of the pelvis and crosstable lateral view of the left hip were obtaine d. COMPARISON: Fluoroscopic images performed earlier the same day. FINDINGS: Postsurgical changes of total left hip arthroplasty. Soft tissue emphysema and skin mckayla in place. No periprosthetic fracture or lucency. Arthrodesis across the right hip evident. Pelvis otherwise in tact. IMPRESSION: Expected postsurgical appearance status post total left hip arthroplasty. ACT 112: Negative or not required by law. Electronically signed by: Stanley Perea M.D. 11/25/2019 1:13 PM
[2019-11-25] MEDS ORDERED: METOCLOPRAMIDE HCL INJ 5 MG/ML 2 ML VIAL IV PRN (13:50)
[2019-11-25] MEDS ORDERED: HYDROmorphone INJ 0.5 MG/0.5 ML SYR IV PRN (13:50)
[2019-11-25] MEDS ORDERED: MAGNESIUM HYDROXIDE SUSP 30 ML UDC PO PRN (13:50)
[2019-11-25] MEDS ORDERED: bisacodyL 10 MG SUPP PR PRN (13:50)
[2019-11-25] MEDS ORDERED: NALOXONE HCL 0.4 MG/1 ML VIAL/CARP IV PRN (13:50)
[2019-11-25] MEDS ORDERED: OXYCODONE HCL IR 5 MG TAB (IMMEDIATE RELEASE) PO PRN (13:50)
--- NOTE | 2019-11-25 14:04 | Anesthesiology Progress Note ---
Date of Service November 25, 2019 Anesthesia Post Procedure Vital Signs Vital Signs: Temp Pulse Resp BP Pulse Ox 11/25/19 13:51 36.7 C 79 16 127/67 94 11/25/19 13:15 79 14 113/79 93 11/25/19 13:05 76 13 135/79 93 11/25/19 12:55 36.7 C 79 14 121/63 92 11/25/19 12:45 75 13 125/65 97 11/25/19 12:35 75 15 121/66 97 11/25/19 12:28 36.3 C L 78 16 111/62 96 11/25/19 07:33 36.5 C 62 16 140/66 95 Pain Intensity Left Hip: Pain Intensity: 6 Transfer of Care Handoff Completed per policy Notes Mental Status: alert / awake / arousable Patient Amnestic to Procedure: Yes Nausea / Vomiting: adequately controlled Pain: adequately controlled Airway Patency, RR, SpO2: stable & adequate BP & HR: stable & adequate Hydration State: stable & adequate Neuraxial Anesthesia: was administered and sensory block is resolving Anesthetic Complications: no major complications apparent
[2019-11-25] MEDS: SODIUM CHLORIDE 0.9% 1000ML 1,000 ML IV SCH ×2 (14:29→23:45)
[2019-11-25] MEDS: KETOROLAC TROMETHAMINE 15 MG/ML VIAL IV SCH ×2 (15:11→21:30)
[2019-11-25] MEDS: ACETAMINOPHEN 500 MG TAB PO SCH ×2 (15:11→21:31)
--- NOTE | 2019-11-25 19:03 | Orthopedic Progress Note ---
Date of Service November 25, 2019 Assessment & Plan (1) Degenerative joint disease of left hip: s/p L anterior total hip arthroplasty -Vanco x 24 -DVT ppx: SCDs, TEDs, ASA 81mg BID -WBAT LLE -PT/OT -PO XR demonstrates a well aligned well fixed prothesis without fracture/dislocation -am labs -DC planning Subjective Post Operative Progress Note Patient seen sitting up in bed, comfortable, denies complaints, pain well controlled, no acute issues. Review of Systems Review of Systems: All systems reviewed & are unremarkable except as noted in HPI & below Constitutional: as per Subjective / HPI Physical Exam Physical Exam: LLE NVSI +EHL/FHL/TA/GS SILT grossly, +2 DP pulse, compartments soft NT, dressing cdi. Constitutional: WD/WN, vitals as above Results & Data Vital Signs (Past 12 Hours) Vital Signs Temp Pulse Pulse Resp BP Pulse Ox 11/25/19 16:24 36.7 C 90 16 126/71 93 11/25/19 15:33 36.7 C 91 H 16 149/73 H 93 11/25/19 14:42 36.5 C 84 18 147/71 H 93 11/25/19 14:06 36.4 C L 83 16 135/65 93 11/25/19 13:51 36.7 C 79 16 127/67 94 11/25/19 13:15 79 14 113/79 93 11/25/19 13:05 76 13 135/79 93 11/25/19 12:55 36.7 C 79 14 121/63 92 11/25/19 12:45 75 13 125/65 97 11/25/19 12:35 75 15 121/66 97 11/25/19 12:28 36.3 C L 78 16 111/62 96 11/25/19 07:33 36.5 C 62 16 140/66 95
[2019-11-25] MEDS ORDERED: VANCOMYCIN HCL 1,500 MG in SODIUM CHLORIDE 0.9% 500 ML IV SCH (20:30)
[2019-11-25] MEDS ORDERED: MONTELUKAST SODIUM 10 MG TABLET PO SCH (21:00)
[2019-11-25] MEDS ORDERED: FLUTICASONE/VILANTEROL 200/25MCG 14 PUFFS/INHALER INH SCH (21:00)
[2019-11-25] MEDS ORDERED: ESCITALOPRAM OXALATE 20 MG TAB PO SCH (21:00)
[2019-11-25] MEDS ORDERED: SIMVASTATIN 20 MG TAB PO SCH (21:00)
[2019-11-25] MEDS ORDERED: SENNA 8.6 MG TAB PO SCH (21:00)
[2019-11-25] MEDS: DOCUSATE SODIUM 100 MG CAP PO SCH (21:30)
[2019-11-26] MEDS: KETOROLAC TROMETHAMINE 15 MG/ML VIAL IV SCH ×2 (02:47→09:01)
[2019-11-26] MEDS: ACETAMINOPHEN 500 MG TAB PO SCH ×2 (05:48→13:34)
[2019-11-26 06:26] LABS: Hematocrit (blood only) 32.9 % (42-52); Mean Corpuscular Hemoglobin 33.1 pg (25-34); Mean Corpuscular Hgb Conc 33.4 g/dL (32-36); Mean Corpuscular Volume 99.1 fL (80-100); Mean Platelet Volume 9.3 fL (7.4-10.4); Platelet Count 247 K/uL (130-400); RDW Coefficient of Variation 12.7 % (11.5-14.5); RDW Standard Deviation 46.3 fL (36.4-46.3); Red Blood Count 3.32 M/uL (4.7-6.1); White Blood Count 16.56 K/uL (4.8-10.8)
[2019-11-26 06:41] LABS: Immature Granulocytes # (auto) 0.06 K/uL (0.00-0.02); Immature Granulocytes % (auto) 0.4 %; Lymphocytes % (auto) 4.8 %; Monocytes # (auto) 1.59 K/uL (0.11-0.59); Monocytes % (auto) 9.6 %; Neutrophils # (auto) 14.11 K/uL (1.4-6.5); Neutrophils % (auto) 85.2 %
[2019-11-26 07:01] LABS: BUN Creatinine Ratio 27.3 (10-20); Calcium 8.5 mg/dl (8.5-10.1); Creatinine Clr Calc Pharmacy 50.8 ml/min; Est GFR (African American) 56.2; Est GFR (Non-African American) 48.5; Potassium 4.2 mmol/L (3.5-5.1)
--- NOTE | 2019-11-26 07:52 | Anesthesiology Progress Note ---
Date of Service November 26, 2019 Anesthesia Post Procedure Vital Signs Vital Signs: Temp Pulse Pulse Resp BP Pulse Ox 11/26/19 07:30 36.6 C 74 18 138/82 95 11/26/19 02:52 36.6 C 76 14 125/69 96 11/25/19 23:41 36.6 C 85 16 120/65 95 11/25/19 19:49 36.6 C 97 H 16 154/76 H 93 11/25/19 16:24 36.7 C 90 16 126/71 93 11/25/19 15:33 36.7 C 91 H 16 149/73 H 93 11/25/19 14:42 36.5 C 84 18 147/71 H 93 11/25/19 14:06 36.4 C L 83 16 135/65 93 11/25/19 13:51 36.7 C 79 16 127/67 94 11/25/19 13:15 79 14 113/79 93 11/25/19 13:05 76 13 135/79 93 11/25/19 12:55 36.7 C 79 14 121/63 92 11/25/19 12:45 75 13 125/65 97 11/25/19 12:35 75 15 121/66 97 11/25/19 12:28 36.3 C L 78 16 111/62 96 Pain Intensity Left Hip: Pain Intensity: 0 Notes Mental Status: alert / awake / arousable and participated in evaluation Patient Amnestic to Procedure: Yes Nausea / Vomiting: adequately controlled Pain: adequately controlled Airway Patency, RR, SpO2: stable & adequate BP & HR: stable & adequate Hydration State: stable & adequate Neuraxial Anesthesia: was administered and sensory block resolved Anesthetic Complications: no major complications apparent
[2019-11-26] MEDS: DOCUSATE SODIUM 100 MG CAP PO SCH (09:00)
[2019-11-26] MEDS ORDERED: ASPIRIN 81 MG ECTAB PO SCH (09:00)
[2019-11-26] MEDS ORDERED: ATENOLOL 25 MG TABLET PO SCH (09:00)
[2019-11-26] MEDS ORDERED: MULTIVITAMIN TAB PO SCH (09:00)
[2019-11-26] MEDS ORDERED: FLUTICASONE PROPIONATE NA SPR 16 GM BTL SCH (09:00)
[2019-11-26] MEDS ORDERED: lisinopriL 40 MG TAB PO SCH (09:00)
--- NOTE | 2019-11-26 12:53 | Orthopedic Progress Note ---
Date of Service November 26, 2019 Assessment & Plan (1) Degenerative joint disease of left hip: s/p L anterior total hip arthroplasty POD#1 -Vanco x 24 -DVT ppx: SCDs, TEDs, ASA 81mg BID -WBAT LLE -PT/OT -PO XR demonstrates a well aligned well fixed prothesis without fracture/dislocation -am labs - hgb 11.0 -DC planning: Home with OP PT Subjective Post Operative Progress Note Patient seen sitting up in bed, comfortable, denies complaints, pain well controlled, no acute issues. Denies F/C/N/V/SOP/CP. Review of Systems Review of Systems: All systems reviewed & are unremarkable except as noted in HPI & below Constitutional: as per Subjective / HPI Physical Exam Physical Exam: LLE NVSI +EHL/FHL/TA/GS SILT grossly, +2 DP pulse, compartments soft NT, dressing cdi. Constitutional: WD/WN, vitals as above Results & Data Vital Signs (Past 12 Hours) Vital Signs Temp Pulse Pulse Resp BP Pulse Ox 11/26/19 11:44 36.8 C 70 16 118/62 96 11/26/19 07:30 36.6 C 74 18 138/82 95 11/26/19 02:52 36.6 C 76 14 125/69 96 Laboratory Results 11/26/19 11/26/19 Range/Units 05:53 05:53 WBC 16.56 H (4.8-10.8) K/uL RBC 3.32 L (4.7-6.1) M/uL Hgb 11.0 L (14.0-18.0) g/dL Hct 32.9 L (42-52) % MCV 99.1 (80-100) fL MCH 33.1 (25-34) pg MCHC 33.4 (32-36) g/dL RDW Std Deviation 46.3 (36.4-46.3) fL RDW Coeff of Kristel 12.7 (11.5-14.5) % Plt Count 247 (130-400) K/uL MPV 9.3 (7.4-10.4) fL Immature Gran % (Auto) 0.4 % Neut % (Auto) 85.2 % Lymph % (Auto) 4.8 % [place] % (Auto) 9.6 % Eos % (Auto) 0.0 % Baso % (Auto) 0.0 % Immature Gran # (Auto) 0.06 H (0.00-0.02) K/uL Neut # (Auto) 14.11 H (1.4-6.5) K/uL Lymph # (Auto) 0.80 L (1.2-3.4) K/uL [place] # (Auto) 1.59 H (0.11-0.59) K/uL Eos # (Auto) 0.00 (0-0.5) K/uL Baso # (Auto) 0.00 (0-0.2) K/uL Sodium 137 (136-145) mmol/L Potassium 4.2 (3.5-5.1) mmol/L Chloride 109 H (98-107) mmol/L Carbon Dioxide 21 (21-32) mmol/L Anion Gap 7.0 (3-11) BUN 38 H (7-18) mg/dl Creatinine 1.40 (0.6-1.4) mg/dl Est Cr Clr Drug Dosing 50.8 ml/min Est GFR ( Amer) 56.2 Est GFR (Non-Af Amer) 48.5 BUN/Creatinine Ratio 27.3 H (10-20) Glucose 126 H (70-99) mg/dl Calcium 8.5 (8.5-10.1) mg/dl
[2019-11-26] MEDS ORDERED: CeleBREX 200 MG CAP PO SCH (13:00)
--- NOTE | 2019-11-29 14:33 | Discharge Summary ---
Date of Service November 26, 2019 Admission HPI Per Admitting Provider The patient is a 74 year old male who presents with complaints of severe left hip pain and DJD. The patient has failed outpatient conservative treatments to this point which included NSAIDs, IA corticosteroid injection, home exercise/walking program. The patient's pain and limited function have progressed to the point where they severely hinder their activities of daily living and they no longer tolerate exercise programs. They are requesting to proceed with total hip replacement surgery. Principal Diagnosis Left anterior total hip replacement Discharge Exam LLE NVSI +EHL/FHL/TA/GS SILT grossly, +2 DP pulse, compartments soft NT, dressing cdi. Constitutional WD/WN, vitals as above Discharge Data Allergies Allergy/AdvReac Type Severity Reaction Status Date / Time ceftriaxone Allergy Unknown RASH/HIVES Verified 11/25/19 07:28 Cephalosporins Allergy Unknown RASH Verified 11/25/19 07:28 clindamycin Allergy Unknown RASH HIVES Verified 11/25/19 07:28 latex Allergy Unknown RASH Verified 11/25/19 07:28 orange Allergy Unknown ORANGES OR Verified 11/25/19 07:28 JUICE-DRY SKIN,WHEEZING pollen extracts Allergy Unknown POLLEN,GRASS Verified 11/25/19 07:28 HAYFEVER AGGRAVATES ASTHMA Consultations 11/26/19 08:00 Consult Case Management - Discharge Planning Routine Procedures Performed Operation Date: 11/25/19 09:35 Actual Procedures p Left Anterior Total Hip Arthroplasty- uncemented(Left) - Robin Brizuela DO Ordered Studies 11/25/19 09:35 FL fluoroscopy <1hr Routine FL hip LT 1V Routine Hospital Course (1) Degenerative joint disease of left hip: The patient is a 74 -year-old male who presents with long standing history of severe left hip DJD and failed outpatient conservative treatments. The patient's symptoms have progressed to the point where it has been difficult to perform even normal activities of daily living. I indicated the patient for a left anterior total hip arthroplasty, the risks, benefits and complications of the procedure include but not limited to infection, bleeding, damage to bone, nerves, vessels, surrounding soft tissue, may develop blood clots, loss of function, leg length discrepancy, dislocation, failure of the components, loosening of the components, the need for additional surgery and . The patient wished to proceed with surgery at this time and informed consent was obtained. Hospital Course: On 11/25/19 the patient was taken to the operating room, adequate anesthesia administered and underwent a left anterior total hip arthroplasty. The patient tolerated the procedure well and was taken to the PACU in stable condition. Post-operatively the patient was started on a DVT ppx medication and given appropriate IV antibiotics. Consults were placed to physical therapy, occupational therapy and case management. On POD#1, the patient did well overnight and their pain was well controlled. Labs were drawn and the Hgb was 11.0. The patient progressed well with PT. Dressings were changed at this time and the incision was clean, dry and intact. The patients hospital stay was relatively uneventful and they were deemed stable by the orthopedic team and consultants to be discharged home with outpatient PT on 11/26/19. Discharge Instructions: Upon discharge the patient may weight bear as tolerates through their operative extremity. They were instructed to keep the incision clean and dry at all times. The patient may shower but should not submerge the incision, avoid bathing, pools and hot tubes. The patient was given a script for pain medication and should take as instructed. The patient was given a script for DVT ppx 81mg ASA BID and should take as directed. The patient was instructed to not drive or travel for long distances until cleared to do so. If the patient develops any symptoms of fevers, chills, nausea, vomiting, increased redness, swelling, pain or drainage from the surgical site, they should notify the office and/or proceed to the nearest emergency room. The patient should follow up in 10-14 days after surgery for their routine post-operative follow-up appointment and should call the office to confirm the date and time. s/p L anterior total hip arthroplasty POD#1 -Vanco x 24 -DVT ppx: SCDs, TEDs, ASA 81mg BID -WBAT LLE -PT/OT -PO XR demonstrates a well aligned well fixed prothesis without fracture/dislocation -am labs - hgb 11.0 -DC planning: Home with OP PT Total Time Total Time Spent Total Time Spent (In Minutes): 45 Discharge Plan Discharge Items Patient Disposition: Home - Self-Care Reason For Visit: LEFT HIP OSTEOARTHRITIS Discharge Diagnosis: Left anterior total hip replacement Condition on Discharge: Good Activity: Per Instructions section Lifting: Wait until after follow-up appointment Bathing: Keep incision dry Bathing Comment: No bathing, pools or hot tubs. Sexual Activity: Wait until after follow-up appointment Exercise/Sports: Wait until after follow-up appointment Driving/Machine Use: No driving. Weightbearing: Full weightbearing Non-emergency contact: Primary Care Provider and Surgeon Call non-emergency contact if: you have any medication questions, your symptoms worsen, your pain is not controlled, your pain is worsening, your pain is unusual for you, your pain is concerning for you, you have a fever, your temperature is above 101, your wound has increased redness, your wound has increased drainage and your wound pain has increased Follow-up/Referrals: Gordo Richter M.D. [Primary Care Provider] - Diet: Regular Addtl Attending Provider Instructions: ACTIVITY RECOMMENDATIONS: SELF CARE INSTRUCTIONS AFTER TOTAL HIP REPLACEMENT : Direct Anterior Approach Until the incision and soft tissues around your hip have healed, there is a possibility that the hip prosthesis could dislocate. A. Hip flexion ( Up & Down out of chair or steps ) may be difficult. This is normal. B. Numbness in front of the thigh is also normal for a few weeks. C. Use hand rails when walking on stairs. D. Wear low heeled shoes with non-slip soles. E. Be sure that your floors are free of things that could trip you - throw rugs, electrical cords, small objects. Avoid wet and waxed floors, especially with crutches and canes. F. Try to walk several times a day with rest periods between. G. Continue with all the exercises taught to you in the hospital. Again, make walking a part of your daily routine. SPECIAL CARE INSTRUCTIONS: VERY IMPORTANT TO READ AND REVIEW A. You may still be at risk for phlebitis and blood clots. 1. Wear surgical stockings (BURT hose) for 2 weeks after surgery to improve circulation and reduce swelling. 2. Take Aspirin 81mg twice daily for 4 weeks or as directed by your doctor. This is your blood thinner. 3. High risk patients may be prescribed a stronger blood thinner if necessary. 4. If you are on Coumadin normally, your family doctor/chief radiologic technologist should monitor your blood work. Expect a phone call the day of or the day after bloodwork is drawn to adjust your dosage. B. You must take antibiotics before having dental work, bladder, bowel and other surgery. Your doctor will provide you with a permanent card to carry describing precautions. C. Call [facility] if you have a fever, redness or swelling around the incision, cloudy drainage from incision, or sudden increase in pain in your hip, not relieved by your regular pain medication. D. Please call the office at if you have any concerns or questions about your operation or recovery. * YOU MAY SHOWER, NO TUB BATHS UNTIL CLEARED BY YOUR DOCTOR. - Keep an extra close eye on the top portion of your incision. Be sure to keep clean & dry. * WEAR BURT HOSE 20 HOURS PER DAY FOR 2 WEEKS. * YOU MAY PROGRESS FROM A WALKER, TO A CANE, TO INDEPENDENT AT YOUR OWN PACE. * MOST PATIENTS WILL HAVE HOME NURSING FOR THERAPY. IF YOU DECIDE TO DO OUTPATIENT PHYSICAL THERAPY, PLEASE SCHEDULE THIS 3 TIMES PER WEEK. *PREVENA incisional vac is a special dressing covering your incision. This dressing provides a sterile dry environment while you are healing. The dressing is to be left in place for 7 days post-operatively. Your home nurse or surgeon will remove. If you develop any redness or blisters or have any questions notify your surgeon immediately. There may be a small piece of suture material at one end of your incision. Do not pull or trim this. If it is bothersome or catching on clothing, you may cover it with a band-aid. FOLLOW UP VISIT: If appointment is not already scheduled: Please call [facility] to make a follow-up appointment for 2 weeks after your surgery at . Pending Studies at Discharge: No Stand-Alone Forms: My [facility], Opioid Pain Management, Smoking Cessation Medications and DC Order Prescriptions: New celecoxib [Celebrex] 200 mg Capsule 200 mg PO BID PRN (Reason: pain/inflammation) Qty: 28 RF: 0 aspirin [Ecotrin Low Strength] 81 mg Tablet,Delayed Release (Dr/Ec) 81 mg PO BID Qty: 56 RF: 0 acetaminophen 500 mg Tablet 1,000 mg PO Q8 PRN (Reason: pain/fevers) Qty: 90 RF: 0 oxycodone 5 mg Tablet 5 mg PO Q6H MDD 6 tabs PRN (Reason: pain) Qty: 30 RF: 0 sennosides [Senokot] 8.6 mg Tablet 17.2 mg PO HS PRN (Reason: constipation) Qty: 28 RF: 0 Continued atenolol 25 mg Tablet 25 mg PO QAM RF: 0 ascorbic acid (vitamin C) [Vitamin C] 500 mg Tablet 500 mg PO QAM RF: 0 simvastatin 20 mg Tablet 20 mg PO HS RF: 0 mometasone 50 mcg/actuation [place],Non-Aerosol 2 spray INTRANASAL QAM RF: 0 montelukast 10 mg Tablet 10 mg PO HS RF: 0 lisinopril 40 mg Tablet 40 mg PO QAM RF: 0 multivitamin Capsule 1 cap PO DAILY RF: 0 escitalopram oxalate 20 mg Tablet 20 mg PO HS RF: 0 cholecalciferol (vitamin D3) [Vitamin D3] 1,000 unit Tablet,Chewable 5,000 unit PO DAILY RF: 0 Zyrtec 10 mg Capsule 10 mg PO QAM RF: 0 vitamin K2 40 mcg Tablet 100 mcg PO DAILY RF: 0 clotrimazole [Athletic Foot Cream] 1 % Cream 1 applic TOPICAL DAILY RF: 0 fluticasone propion-salmeterol [Advair Diskus] 250-50 mcg/dose Blister With Device 1 inh INHALATION BID RF: 0 Discontinued meloxicam 15 mg Tablet 15 mg PO QAM RF: 0 Discharge Orders: Discharge Order (Routine); Ordered 11/26/19 Ordered By: Robin Brizuela Admission Data Admit Date/Time: 11/25/19 13:43 Attending Provider: Robin Brizuela Admit Provider: Robin Brizuela Primary Care Provider: Gordo Richter Other Interventions: Discharge Summary Assessment (RN) Last Done: 11/26/19 13:51 DC Date/Time DO NOT enter until pt leaves facility: 11/26/19 14:35
== END 2019-11-26 14:35 | disposition home or self-care (01) | DRG 470 ==
LOC: ASU 06:27 → 3E 13:43

== ENCOUNTER 2021-02-07 12:26 | Observation (INO) ==
--- NOTE | 2021-01-11 16:48 | PAT Medication Instructions ---
Medication Instructions Date of Service January 11, 2021 Home Medications Medication Instructions Recorded acetaminophen 1,000 mg PO Q8 PRN #90 tab 11/25/19 celecoxib [Celebrex] 200 mg PO BID PRN #28 cap 11/25/19 sennosides [Senokot] 17.2 mg PO HS PRN #28 tab 11/25/19 Zyrtec 10 mg PO QAM ascorbic acid (vitamin C) [Vitamin C] 500 mg PO QAM atenolol 25 mg PO HS cholecalciferol (vitamin D3) [Vitamin D3] 5,000 unit PO QAM clotrimazole [Athletic Foot Cream] 1 applic TOPICAL DAILY escitalopram oxalate 20 mg PO HS fluticasone propion-salmeterol [Advair Diskus] 1 inh INHALATION BID lisinopril 40 mg PO HS mometasone 2 spray INTRANASAL QAM montelukast 10 mg PO HS multivitamin 1 cap PO QAM simvastatin 20 mg PO HS acetaminophen 1,000 mg PO Q8 PRN celecoxib [Celebrex] 200 mg PO BID PRN sennosides [Senokot] 17.2 mg PO HS PRN vitamin K2 100 mcg PO QAM ASK your surgeon for instructions celecoxib [Celebrex] 200 mg PO BID PRN DO NOT take the morning of surgery Zyrtec 10 mg PO QAM ascorbic acid (vitamin C) [Vitamin C] 500 mg PO QAM cholecalciferol (vitamin D3) [Vitamin D3] 5,000 unit PO QAM fluticasone propion-salmeterol [Advair Diskus] 1 inh INHALATION BID mometasone 2 spray INTRANASAL QAM multivitamin 1 cap PO QAM vitamin K2 100 mcg PO QAM Take morning of surgery With a small sip of water, OTHERWISE NOTHING TO EAT OR DRINK AFTER MIDNIGHT: fluticasone propion-salmeterol [Advair Diskus] 1 inh INHALATION BID mometasone 2 spray INTRANASAL QAM acetaminophen 1,000 mg PO Q8 PRN (if needed, may be taken up to four hours before surgery) Take evening before surgery atenolol 25 mg PO HS escitalopram oxalate 20 mg PO HS fluticasone propion-salmeterol [Advair Diskus] 1 inh INHALATION BID lisinopril 40 mg PO HS montelukast 10 mg PO HS simvastatin 20 mg PO HS acetaminophen 1,000 mg PO Q8 PRN (if needed) sennosides [Senokot] 17.2 mg PO HS PRN (if needed) Other Notes If you have any questions please call us at [phone] or [phone] or [phone] or [phone]
--- NOTE | 2021-01-12 12:32 | Anesthesiology Consultation ---
Date of Service January 12, 2021 Assessment & Plan (1) Encounter for pre-operative examination: COVID Status: As of 01/12 assessment, patient denies travel to endemic area, known exposure/sick contacts, or symptoms of COVID19. Patient instructed that they and their household members must follow strict social distancing guidelines, wear a mask in public and avoid travel/events/gatherings for 14 days prior to surgery. Preoperative COVID19 testing to be completed prior to surgery per surgeon's arrangements (02/01). Patient made aware to self-isolate as much as possible between COVID testing and surgery. Chart Review Chart Review: Acceptable Risk for Surgery and Patient seen in Pre Admission Testing Teaching & Discussion Instructed NPO after midnight before surgery, except medications with 15 cc of water. Medication instructions provided according to the PAT guidelines. History Surgery Operation Date: 02/07/21 07:00 Proposed Procedures p Left Total Knee Revision - Robin Brizuela DO Height/Weight Height: 5 ft 8 in Weight: 97.9 kg Allergies Allergy/AdvReac Type Severity Reaction Status Date / Time ceftriaxone Allergy Unknown RASH/HIVES Verified 01/04/21 13:34 Cephalosporins Allergy Unknown RASH Verified 01/04/21 13:34 clindamycin Allergy Unknown RASH HIVES Verified 01/04/21 13:34 latex Allergy Unknown RASH Verified 01/04/21 13:34 orange Allergy Unknown ORANGES OR Verified 01/04/21 13:34 JUICE-DRY SKIN,WHEEZING pollen extracts Allergy Unknown POLLEN,GRASS Verified 01/04/21 13:34 HAYFEVER AGGRAVATES ASTHMA adhesive AdvReac Blister Verified 01/04/21 13:34 Medications Home Medications Medication Instructions Recorded Confirmed Last Taken Zyrtec 10 mg PO QAM 10/23/19 01/04/21 11/24/19 08:00 ascorbic acid (vitamin C) [Vitamin 500 mg PO QAM 10/23/19 01/04/21 11/24/19 08:00 C] atenolol 25 mg PO HS 10/23/19 01/04/21 11/25/19 04:00 cholecalciferol (vitamin D3) 5,000 unit PO QAM 10/23/19 01/04/21 11/24/19 08:00 [Vitamin D3] clotrimazole [Athletic Foot Cream] 1 applic TOPICAL DAILY 10/23/19 01/04/2120 08:00 escitalopram oxalate 20 mg PO HS 10/23/19 01/04/21 11/24/19 21:30 fluticasone propion-salmeterol 1 inh INHALATION BID 10/23/19 01/04/21 11/25/19 04:00 [Advair Diskus] lisinopril 40 mg PO HS 10/23/19 01/04/21 11/24/19 08:00 mometasone 2 spray INTRANASAL QAM 10/23/19 01/04/21 11/24/19 montelukast 10 mg PO HS 10/23/19 01/04/21 11/24/19 21:30 multivitamin 1 cap PO QAM 10/23/19 01/04/21 11/24/19 08:00 simvastatin 20 mg PO HS 10/23/19 01/04/21 11/24/19 20:30 acetaminophen 1,000 mg PO Q8 PRN #90 tab 11/25/19 01/04/21 Unknown celecoxib [Celebrex] 200 mg PO BID PRN #28 cap 11/25/19 01/04/21 Unknown sennosides [Senokot] 17.2 mg PO HS PRN #28 tab 11/25/19 01/04/21 Unknown vitamin K2 100 mcg PO QAM 01/04/21 01/04/21 Unknown Past Medical History Medical History Depression Diverticulosis History of cellulitis X3 IN HX - MOST RECENT 2003. 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 Lumbar spinal stenosis L4 Obesity Osteoarthritis Exercise / Class Metabolic Activity II 4-5 Yardwork/Stairs/Walk up hill Past Family History Family History Sister Family history of diabetes mellitus Family history of lymphoma Sister Family history of diabetes mellitus Family history of lymphoma Past Surgical History Surgical History History of arthroplasty of left hip History of colonoscopy History of hip surgery R HIP FUSION History of neck surgery TODDLER, SURGERY TO FLORY SWOLLEN GLANDS History of revision of total replacement of left knee joint History of revision of total replacement of right knee joint History of rotator cuff surgery L X 2 History of tonsillectomy History of total left knee replacement History of total right knee replacement Past Anesthesia History No Hx of Anesthesia Complications History of PONV No Hx of PONV Social History Smoking Status: Former smoker tobacco type: cigarettes Do You Dip or Chew Tobacco: No Smoking End Date: 1979 Hx Alcohol Use: Yes alcohol intake frequency: holidays/special occasions only Hx Substance Use: No substance use type: does not use Review of Systems Pt denies any recent chest pain, shortness of breath, palpitations, cough, fever, URI, or uncontrolled acid reflux. Physical Exam Vital Signs BP: 124/74 P: 78bpm SPO2: 94% RA T: 98.1 F R: 16 ENMT Mouth: + dental restorations (many fillings and crowns); no chipped teeth and no loose teeth Thyromental Distance: > or= 3.5 Finger Breadths Mallampati Class: III Neck + short neck; neck extension not limited Respiratory normal respiratory effort, lungs clear to auscultation Cardiovascular RRR, no murmur, no edema Testing Laboratory Results 01/12/21 12:45 01/12/21 12:45 PT 10.0 Seconds (9.0-12.0) 01/12/21 12:45 INR 1.0 (0.9-1.1) 01/12/21 12:45 APTT 25.2 Seconds (21.0-31.0) 01/12/21 12:45 Hemoglobin A1c 5.7 % (4.5-5.6) H 01/12/21 12:45 Urine Color Yellow 01/12/21 12:45 Urine Appearance Clear (Clear) 01/12/21 12:45 Urine pH 5.0 (4.5-7.5) 01/12/21 12:45 Ur Specific [place] 1.018 (1.000-1.030) 01/12/21 12:45 Urine Protein Negative (Negative) 01/12/21 12:45 Urine Glucose (UA) Negative (Negative) 01/12/21 12:45 Urine Ketones Negative (Negative) 01/12/21 12:45 Urine Nitrite Negative (Negative) 01/12/21 12:45 Ur Leukocyte Esterase Negative (Negative) 01/12/21 12:45 Blood Type O Positive 01/12/21 12:45 Antibody Screen NEGATIVE 01/12/21 12:45 Electrocardiogram Date: 01/12/21 Findings: + NSR @ (74bpm) No significant change from 10/29/19. Chest X-Ray Date: 01/12/21 Findings: + NAD
[2021-01-12 13:17] LABS: Basophils # (auto) 0.03 K/uL (0-0.2); Basophils % (auto) 0.4 %; Eosinophils # (auto) 0.34 K/uL (0-0.5); Eosinophils % (auto) 4.8 %; Hematocrit (blood only) 41.3 % (42-52); Hemoglobin 13.8 g/dL (14.0-18.0); Immature Granulocytes # (auto) 0.01 K/uL (0.00-0.02); Immature Granulocytes % (auto) 0.1 %; Lymphocytes # (auto) 1.52 K/uL (1.2-3.4); Lymphocytes % (auto) 21.3 %; Mean Corpuscular Hgb Conc 33.4 g/dL (32-36); Mean Corpuscular Volume 92.8 fL (80-100); Mean Platelet Volume 9.4 fL (7.4-10.4); Monocytes # (auto) 0.92 K/uL (0.11-0.59); Monocytes % (auto) 12.9 %; Neutrophils % (auto) 60.5 %; Platelet Count 294 K/uL (130-400); RDW Standard Deviation 51.5 fL (36.4-46.3); Red Blood Count 4.45 M/uL (4.7-6.1); White Blood Count 7.12 K/uL (4.8-10.8)
--- NOTE | 2021-01-12 13:21 | XRay Report ---
XR chest Pre-admission PA/Lat CLINICAL HISTORY: Preoperative chest COMPARISON STUDY: 10/29/2019 FINDINGS: The cardiac and mediastinal contours are normal. There is no evidence of focal pulmonary co nsolidation. There is no evidence of failure. No pleural effusions are visualized.[Degenerative odonnell es are present within the dorsal spine IMPRESSION: No active disease in the chest. ACT 112: Negative or not required by law. Electronically signed by: Bud Smith M.D. 01/12/2021 1:19 PM
[2021-01-12 13:27] LABS: Appearance Urine Clear (Clear); Bilirubin Urine Negative (Negative); Blood Urine Negative (Negative); Color Urine Yellow; Glucose Urine UA Negative (Negative); Ketones Urine Negative (Negative); Leukocyte Esterase Urine Negative (Negative); Nitrite Urine Negative (Negative); Protein Urine Negative (Negative); Specific Gravity Urine 1.018 (1.000-1.030); Urobilinogen Urine Negative (Negative)
[2021-01-12 13:28] LABS: Partial Thromboplastin Time 25.2 Seconds (21.0-31.0)
[2021-01-12 13:31] LABS: Albumin Level 3.6 gm/dl (3.4-5.0); BUN Creatinine Ratio 22.2 (10-20); Calcium 9.5 mg/dl (8.5-10.1); Creatinine Clr Calc Pharmacy 71.7 ml/min; Est GFR (African American) 86.9; Potassium 4.2 mmol/L (3.5-5.1)
[2021-01-12 13:56] LABS: Estimated Average Glucose 117 mg/dl; Hemoglobin A1C 5.7 % (4.5-5.6)
--- NOTE | 2021-01-12 15:33 | Electrocardiogram Report ---
Test Reason : Blood Pressure : / mmHG Vent. Rate : 074 BPM Atrial Rate : 074 BPM P-R Int : 176 ms QRS Dur : 096 ms QT Int : 412 ms P-R-T Axes : 052 -22 032 degrees QTc Int : 457 ms Normal sinus rhythm Normal ECG When compared with ECG of 29-OCT-2019 12:57, No significant change was found Confirmed by Gopal Hoff ([id number]) on 01/12/2021 3:33:36 PM Referred By: Robin Brizuela Confirmed By:Gopal Hoff
--- NOTE | 2021-02-05 08:42 | History & Physical Report ---
Date of Service February 07, 2021 Assessment & Plan (1) Failed total left knee replacement: I have indicated the patient for revision left total knee replacement, patella and poly exchange. The risks, benefits and complications of surgery were explained to the patient which include but not limited to infection, acute blood loss, DVT/PE, injury to nerves, vessels, bone, soft tissue, arthrofib rosis, chronic pain, failure of the prosthesis, knee dislocation, leg length discrepancy, need for additional surgery, cardiac and pulmonary events and . The patient wished to proceed with surgery and informed consent was obtained at this time. We will plan for Lovenox post-operatively for DVT prophylaxis. Upon discharge the patient will be discharged home with home health services. Appropriate clearances by PCP were obtained. 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 Previously underwent revision left total knee 07/01/[address] Sanford. The patient has failed outpatient conservative treatments to this point which included NSAIDs, activity modification and a home exercise/walking program. The patient's pain and limited function have progressed to the point where they severely hinder their activities of daily living and they no longer tolerate exercise programs. They are requesting to proceed with revision total knee replacement surgery. Allergies Allergy/AdvReac Type Severity Reaction Status Date / Time ceftriaxone Allergy Unknown RASH/HIVES Verified 02/07/21 12:48 Cephalosporins Allergy Unknown RASH Verified 02/07/21 12:48 clindamycin Allergy Unknown RASH HIVES Verified 02/07/21 12:48 latex Allergy Unknown RASH Verified 02/07/21 12:48 orange Allergy Unknown ORANGES OR Verified 02/07/21 12:48 JUICE-DRY SKIN,WHEEZING pollen extracts Allergy Unknown POLLEN,GRASS Verified 02/07/21 12:48 HAYFEVER AGGRAVATES ASTHMA adhesive AdvReac Blister Verified 02/07/21 12:48 Home Medications Medication Instructions Recorded Confirmed Type Zyrtec 10 mg PO QAM 10/23/19 01/04/21 History ascorbic acid (vitamin C) [Vitamin 500 mg PO QAM 10/23/19 01/04/21 History C] atenolol 25 mg PO HS 10/23/19 01/04/21 History cholecalciferol (vitamin D3) 5,000 unit PO QAM 10/23/19 01/04/21 History [Vitamin D3] clotrimazole [Athletic Foot Cream] 1 applic TOPICAL DAILY 10/23/19 01/04/21 History escitalopram oxalate 20 mg PO HS 10/23/19 01/04/21 History fluticasone propion-salmeterol 1 inh INHALATION BID 10/23/19 01/04/21 History [Advair Diskus] lisinopril 40 mg PO HS 10/23/19 01/04/21 History mometasone 2 spray INTRANASAL QAM 10/23/19 01/04/21 History montelukast 10 mg PO HS 10/23/19 01/04/21 History multivitamin 1 cap PO QAM 10/23/19 01/04/21 History simvastatin 20 mg PO HS 10/23/19 01/04/21 History acetaminophen 1,000 mg PO Q8 PRN #90 tab 11/25/19 01/04/21 Rx celecoxib [Celebrex] 200 mg PO BID PRN #28 cap 11/25/19 01/04/21 Rx sennosides [Senokot] 17.2 mg PO HS PRN #28 tab 11/25/19 01/04/21 Rx vitamin K2 100 mcg PO QAM 01/04/21 01/04/21 History Past Med/Surg History Medical History Depression Diverticulosis History of cellulitis X3 IN HX - MOST RECENT 2003. 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 Lumbar spinal stenosis L4 Obesity Osteoarthritis Surgical History History of arthroplasty of left hip History of colonoscopy History of hip surgery R HIP FUSION History of neck surgery TODDLER, SURGERY TO FLORY SWOLLEN GLANDS History of revision of total replacement of left knee joint History of revision of total replacement of right knee joint History of rotator cuff surgery L X 2 History of tonsillectomy History of total left knee replacement History of total right knee replacement Family History Sister Family history of diabetes mellitus Family history of lymphoma Sister Family history of diabetes mellitus Family history of lymphoma Social History Smoking Status: Former smoker Smoking End Date: 1979; Second Hand Exposure: Yes (hx); Do You Dip or Chew Tobacco: No; Tobacco Cessation Education Requested by Patient: No Hx Alcohol Use: Yes Hx Substance Use: No Preferred Language: [place] Communication Ability: Effective Group Work Program Aide Required: No Beliefs That Will Affect Care: None marital status: Current Living Situation: Spouse Other Information That Helps Us Care for You: No Feels Safe at Home: Yes Safety Concerns: Feels Safe At This Time Assistive Devices: Cane and Walker Review of Systems Review of Systems: All systems reviewed & are unremarkable except as noted in HPI & below Constitutional: as per Subjective / HPI Physical Exam Physical Exam: LLE NVSI +EHL/FHL/TA/GS SILT grossly, +2 DP pulse, compartments soft NT, painful flexion 0-120 degrees, +TTP patella. Constitutional: WD/WN, vitals as above Eyes: PERRL, conjunctivae normal, anicteric sclerae ENMT: external ear and nose normal, oropharynx normal Neck: trachea midline, no thyromegaly Respiratory: normal respiratory effort, lungs clear to auscultation Cardiovascular: RRR, no murmur, no edema Gastrointestinal (Abdomen): normal bowel sounds, soft, nontender, no hepatosplenomegaly Musculoskeletal: no cyanosis or clubbing, extremities motor strength 5/5 Skin: no rashes, warm and dry Neurologic: patellar DTR's 2+ bilat, sensation intact Psychiatric: A+Ox3, euthymic affect Lymphatic: no cervical or axillary lymphadenopathy Results & Data Results & Data ([facility]) Diagnostic Findings Xrays of the left knee demonstrate post surgical findings, stemmed total knee revision components well aligned and well fixed, gross loosening of the patella button with distal migration abutting the patella tendon. Pre Admission Testing Addendum Laboratory Results 01/12/21 12:45 01/12/21 12:45 PT 10.0 Seconds (9.0-12.0) 01/12/21 12:45 INR 1.0 (0.9-1.1) 01/12/21 12:45 APTT 25.2 Seconds (21.0-31.0) 01/12/21 12:45 Hemoglobin A1c 5.7 % (4.5-5.6) H 01/12/21 12:45 Urine Color Yellow 01/12/21 12:45 Urine Appearance Clear (Clear) 01/12/21 12:45 Urine pH 5.0 (4.5-7.5) 01/12/21 12:45 Ur Specific [place] 1.018 (1.000-1.030) 01/12/21 12:45 Urine Protein Negative (Negative) 01/12/21 12:45 Urine Glucose (UA) Negative (Negative) 01/12/21 12:45 Urine Ketones Negative (Negative) 01/12/21 12:45 Urine Nitrite Negative (Negative) 01/12/21 12:45 Ur Leukocyte Esterase Negative (Negative) 01/12/21 12:45 Blood Type O Positive 01/12/21 12:45 Antibody Screen NEGATIVE 01/12/21 12:45
[~2021-02-07 12:26] MED LIST changes: +BUPIVACAINE 0.5 % 5 MG/1 ML PF 10ML VIAL ONE; -CEFAZOLIN 2000MG 2,000 MG/15 ML SYR IV SCH; +ROPIVACAINE 0.5% 5 MG/ML 30 ML VIAL ONE; -ROPIVACAINE 0.5% HCL/PF 150 MG, BUPIVACAINE 0.5% MPF 30 ML, EPINEPHrine 30MG/30ML (OR U... INFIL SCH; +ROPIVACAINE 0.5% HCL/PF 150 MG, BUPIVACAINE 0.75% MPF 20 ML, EPINEPHrine 30MG/30ML (OR ... INFIL SCH; +VANCOMYCIN HCL 1,500 MG in SODIUM CHLORIDE 0.9% 500 ML IV SCH
[2021-02-07] MEDS ORDERED: MIDAZOLAM HCL 1 MG/ML 2ML VIAL ONE (12:48)
[2021-02-07] MEDS ORDERED: fentaNYL citrate 100 MCG/2 ML VIAL ONE (12:48)
--- NOTE | 2021-02-07 12:54 | History & Physical Bridge Note ---
Date of Service February 07, 2021 History & Physical Bridge Note I have examined the patient, reviewed the History & Physical and in the interval since the performance of the History & Physical I have noted the following changes of clinical significance: no changes noted
[2021-02-07] MEDS ORDERED: ORTHO JOINT ANESTHETIC ONE (14:26)
[2021-02-07] MEDS ORDERED: BACITRACIN INJ 50,000 UNIT VIAL ONE (14:26)
[2021-02-07] MEDS ORDERED: ATROPINE SULFATE 0.1 MG/ML 10ML SYR IV PRN (14:35)
[2021-02-07] MEDS ORDERED: fentaNYL citrate 100 MCG/2 ML VIAL IV PRN (14:35)
[2021-02-07] MEDS ORDERED: ePHEDrine sulfate 50 MG/ML AMP IV PRN (14:35)
[2021-02-07] MEDS ORDERED: HYDROmorphone INJ 2 MG/ML SYR/VIAL IV PRN (14:35)
[2021-02-07] MEDS ORDERED: ONDANSETRON INJ 2 MG/ML 2 ML VIAL IV PRN ×2 (14:35→18:12)
[2021-02-07] MEDS ORDERED: PROPOFOL IV EMULSION 10 MG/ML 20 ML VIAL IV ONE (14:45)
[2021-02-07] MEDS ORDERED: LIDOCAINE HCL 2% 2 ML VIAL/AMP(20MG/ML) INFIL ONE (14:45)
[2021-02-07] MEDS ORDERED: ePHEDrine sulfate 50 MG/ML SYR ONE (15:09)
[2021-02-07] MEDS ORDERED: PHENYLEPHRINE 100MCG/ML 5ML SYR ONE (15:09)
--- NOTE | 2021-02-07 15:40 | Operative Report ---
Post Operative Report Pre & Post Diagnosis Operation Date: 02/07/21 15:00 Pre-Op Diagnosis: Left Knee Failed Total Knee Arthroplasty Post-Op Diagnosis: Left Knee Failed Total Knee Arthroplasty I identified the patient and participated in the time-out.: Yes Procedure Operation Date: 02/07/21 15:00 Actual Procedures p Left Total Knee Revision(Left) - poly exchange - Robin Brizuela DO s Left total knee removal of loose patella component s Patelloplasty Surgeon Robin Brizuela DO Lay Out Machine Operator Sonny Trejo Estimated Blood Loss 55 Findings Consistent with Post-Op Diagnosis Fluids See anesthesia report Specimens None Anesthesia Type Spinal MAC Complications none Disposition Disposition: Recovery Room Indications The patient is a 75 year old male who presents with failed left total knee with aseptic loosening of the patella. Previously underwent revision left total knee 07/01/[address] Sanford. The patient has failed outpatient conservative treatments to this point which included NSAIDs, activity modification and a home exercise/walking program. The patient's pain and limited function have progressed to the point where they severely hinder their activities of daily living and they no longer tolerate exercise programs. They are requesting to proceed with revision total knee replacement surgery. I have indicated the patient for revision left total knee replacement, patella and poly exchange. The risks, benefits and complications of surgery were explained to the patient which include but not limited to infection, acute blood loss, DVT/PE, injury to nerves, vessels, bone, soft tissue, arthrofibrosis, chronic pain, failure of the prosthesis, knee dislocation, leg length discrepancy, need for additional surgery, cardiac and pulmonary events and . The patient wished to proceed with surgery and informed consent was obtained at this time. We will plan for Lovenox post-operatively for DVT prophylaxis. Upon discharge the patient will be discharged home with home health services. Appropriate clearances by PCP were obtained. Description of Procedure Following induction of spinal anesthesia, a tourniquet was applied to the proximal aspect of the thigh and the patient's left leg was prepped and draped in the usual sterile manner. A timeout was performed and site marissa verified. Limb was exsanguinated with an esmarch bandage and tourniquet was inflated to 300 mmHg. The prior incision was identified and a longitudinal midline incision was made over the anterior knee. Subcutaneous tissue was sharply dissected down to fascia. Electrocautery was used for hemostasis. Next a medial parapatellar arthrotomy was performed. Meticulous removal of hypertrophic synovium and scar tissue was removed with Bovie. The patella button was identified sitting inferiorly to the patella abutting the patella tendon and was easily removed. The patella was subluxed laterally and the knee was flexed. A moreno retractor was used to expose the synovium above on the anterior aspect of the femur and removed down to bone. Next, the anterior fat pad was removed to aid in visualization. The medial face of the tibia was cleared of soft tissue first with a bovie and a bowles elevator. This tissue was retracted posteriorly using a blunt hohmann. Once adequate access was obtained to the total knee prosthesis we removed the tibial articular surface. Next we turned our attention to the femoral component and cleared soft tissue at the bone metal interface. The femoral component with found to be well fixed and without signs of wear. Next we turned our attention to the proximal tibia and cleared soft tissue from the bone metal interface. The tibial component was found to be well fixed and without signs of wear. A trial size 15 PS tibia articular tray was placed and varus-valgus balance assessed in 0 degrees of extension and 30, 60 and 90 degrees of flexion. Sequential trailing was performed. A final tibial articular surface size 18 PS was chosen. Access was gained to the patella and meticulous removal of fibrous soft tissue and osteophytes surrounding the patella was performed. A caliper was utilized to measure width. Unfortunately the patella was found to be too thin for resurfacing, measurements were 7mm distal pole and 9mm proximal pole. The decision was made to leave the patella unresurfaced. Tracking was assessed and the patella tracked well and was stable throughout ROM. The trial tibial articular insert was removed and final components were obtained. Aquamantys was utilized for any bleeders and Orthomix solution injected into the posterior capsule. The knee was irrigated with copious amounts of sterile saline solution mixed with bacitracin. Access to the proximal tibia was once again obtained and a final 18mm PS tibial articular surface was inserted. Next, the knee was injected with the remaining Orthomix solution. A Betadine soak was performed for three minutes and the knee was irrigated once more with sterile saline solution mixed with bacitracin. The capsulotomy was closed with #1 Vicryl followed by subcutaneous closure with 2-0 Vicryl suture. Skin closure was performed using mckayla and a sterile dry dressing was applied which included Xeroform, 4x4s, ABDs, Webrill and jeanette wrap. The tourniquet was deflated at 78 minutes. The patient was transported to the PACU in stable condition and without apparent complications. Due to the complex nature of the procedure, the entire surgery was performed with the operational assistance of Sonny Trejo PA-C. The assistant golf course superintendent, under direct supervision, was involved in the actual performance of all aspects of the surgical procedure including patient positioning, hemostasis, tissue retraction, instrument management and wound closure. I attest to the content of the Intraoperative Record and any orders documented therein. Any exceptions are noted below.
--- NOTE | 2021-02-07 15:40 | Post Operative Brief Note ---
Immediate Post Op Note v1 Date of Surgery February 07, 2021 Pre & Post Diagnosis Operation Date: 02/07/21 15:00 Pre-Op Diagnosis: Left Knee Failed Total Knee Arthroplasty Post-Op Diagnosis: Left Knee Failed Total Knee Arthroplasty I identified the patient and participated in the time-out.: Yes Procedure Operation Date: 02/07/21 15:00 Actual Procedures p Left Total Knee Revision(Left) - Robin Brizuela DO Surgeon Robin Brizuela DO Casting Director Sonny Trejo Estimated Blood Loss 55 Findings Consistent with Post-Op Diagnosis Fluids See anesthesia report Specimens None Anesthesia Type Spinal MAC Complications none Disposition Disposition: Recovery Room Overlapping Procedure I was present for: the critical portions of procedure. I was immediately available: during the entire case. Back up surgeon: was not required during procedure.
--- NOTE | 2021-02-07 16:50 | XRay Report ---
TWO VIEWS LEFT KNEE CLINICAL HISTORY: Postoperative examination. FINDINGS: AP and crosstable lateral portable views of the left knee are obtained. A left knee arthrop lasty with long tibial and femoral stems is in near anatomic alignment. There has been undersurface r emodeling of the patella. No acute fracture is seen. There are expected postoperative changes around the knee including skin clips, soft tissue edema, and subcutaneous gas. Atherosclerotic calcification is noted in the popliteal artery. IMPRESSION: Expected postoperative changes status post left knee arthroplasty. No acute fracture is s een. ACT 112: Negative or not required by law. Electronically signed by: Damien Galeano M.D. 02/07/2021 4:49 PM
--- NOTE | 2021-02-07 16:55 | Orthopedic Progress Note ---
Date of Service February 07, 2021 Assessment & Plan (1) Failed total left knee replacement: Status post revision left total knee arthroplasty, polyexchange, removal of patella button -Vancomycin x24 -DVT prophylaxis: SCDs, teds, 81 mg ASA twice daily -Weight-bear as tolerates left lower extremity -PT/OT -Postoperative x-ray demonstrates well aligned well fixed prosthesis without fracture or dislocation -A.m. lab -DC planning - home with OP PT Subjective Post Operative Progress Note Patient seen in PACU, comfortable, denies complaints, pain well controlled, no acute issues. Review of Systems Review of Systems: All systems reviewed & are unremarkable except as noted in HPI & below Constitutional: as per Subjective / HPI Physical Exam Physical Exam: LLE NVSI +EHL/FHL/TA/GS SILT grossly, +2 DP pulse, compartments soft NT, dressing cdi. Constitutional: WD/WN, vitals as above Results & Data ([place]) Vital Signs (Past 12 Hours) Vital Signs Temp Pulse Pulse Resp BP Pulse Ox 02/07/21 16:45 76 15 125/65 98 02/07/21 16:35 70 15 118/63 98 02/07/21 16:25 66 15 115/66 97 02/07/21 16:19 37 C 70 16 104/62 97 02/07/21 13:27 57 L 20 139/69 95 02/07/21 12:35 36.7 C 61 20 139/62 94
--- NOTE | 2021-02-07 16:59 | Anesthesiology Progress Note ---
Date of Service February 07, 2021 Anesthesia Post Procedure Vital Signs Vital Signs: Temp Pulse Pulse Resp BP Pulse Ox 02/07/21 16:55 36.4 C L 70 14 120/64 95 02/07/21 16:45 76 15 125/65 98 02/07/21 16:35 70 15 118/63 98 02/07/21 16:25 66 15 115/66 97 02/07/21 16:19 37 C 70 16 104/62 97 02/07/21 13:27 57 L 20 139/69 95 02/07/21 12:35 36.7 C 61 20 139/62 94 Transfer of Care Handoff Completed per policy Notes Mental Status: alert / awake / arousable and participated in evaluation Patient Amnestic to Procedure: Yes Nausea / Vomiting: adequately controlled Pain: adequately controlled Airway Patency, RR, SpO2: stable & adequate BP & HR: stable & adequate Hydration State: stable & adequate Anesthetic Complications: no major complications apparent and Pt Satisfied with anesthetic care
[2021-02-07] MEDS ORDERED: NALOXONE HCL 0.4 MG/1 ML VIAL/CARP IV PRN (18:12)
[2021-02-07] MEDS ORDERED: diphenhydrAMINE 50 MG/ML VIAL IV PRN (18:12)
[2021-02-07] MEDS ORDERED: VANCOMYCIN CONSULT ACTIVE PRN (18:12)
[2021-02-07] MEDS ORDERED: diphenhydrAMINE Capsule 25 MG CAP PO PRN (18:12)
[2021-02-07] MEDS ORDERED: SENNA 8.6 MG TAB PO PRN (18:12)
[2021-02-07] MEDS ORDERED: HYDROmorphone INJ 0.5 MG/0.5 ML SYR IV PRN (18:12)
[2021-02-07] MEDS ORDERED: oxyCODONE HCL IR 5 MG TAB (IMMEDIATE RELEASE) PO PRN (18:12)
[2021-02-07] MEDS ORDERED: METOCLOPRAMIDE HCL INJ 5 MG/ML 2 ML VIAL IV PRN (18:12)
[2021-02-07] MEDS ORDERED: bisacodyL 10 MG SUPP PR PRN (18:12)
[2021-02-07] MEDS ORDERED: MAGNESIUM HYDROXIDE SUSP 30 ML UDC PO PRN (18:12)
[2021-02-07] MEDS: SODIUM CHLORIDE 0.9% 1000ML 1,000 ML IV SCH (18:27)
[2021-02-07] MEDS: KETOROLAC TROMETHAMINE 15 MG/ML VIAL IV SCH ×2 (18:54→23:58)
[2021-02-07] MEDS: DOCUSATE SODIUM 100 MG CAP PO SCH (20:43)
[2021-02-07] MEDS ORDERED: ESCITALOPRAM OXALATE 20 MG TAB PO SCH (21:00)
[2021-02-07] MEDS ORDERED: SENNA 8.6 MG TAB PO SCH (21:00)
[2021-02-07] MEDS ORDERED: ATENOLOL 25 MG TABLET PO SCH (21:00)
[2021-02-07] MEDS ORDERED: lisinopril 40 MG TAB PO SCH (21:00)
[2021-02-07] MEDS ORDERED: MONTELUKAST SODIUM 10 MG TABLET PO SCH (21:00)
[2021-02-07] MEDS ORDERED: SIMVASTATIN 20 MG TAB PO SCH (21:00)
[2021-02-07] MEDS: ACETAMINOPHEN 500 MG TAB PO SCH (21:03)
[2021-02-07] MEDS: VANCOMYCIN HCL 1,500 MG in SODIUM CHLORIDE 0.9% 500 ML IV SCH (23:57)
[2021-02-08] MEDS: SODIUM CHLORIDE 0.9% 1000ML 1,000 ML IV SCH (05:00)
[2021-02-08] MEDS: ACETAMINOPHEN 500 MG TAB PO SCH ×2 (05:25→13:58)
[2021-02-08] MEDS: KETOROLAC TROMETHAMINE 15 MG/ML VIAL IV SCH ×2 (05:25→11:46)
[2021-02-08 06:28] LABS: Hematocrit (blood only) 37.7 % (42-52); Hemoglobin 12.8 g/dL (14.0-18.0); Mean Corpuscular Hemoglobin 31.8 pg (25-34); Mean Corpuscular Volume 93.8 fL (80-100); Mean Platelet Volume 10.3 fL (7.4-10.4); Platelet Count 231 K/uL (130-400); RDW Coefficient of Variation 14.3 % (11.5-14.5); RDW Standard Deviation 49.5 fL (36.4-46.3); Red Blood Count 4.02 M/uL (4.7-6.1); White Blood Count 10.86 K/uL (4.8-10.8)
[2021-02-08 07:05] LABS: BUN Creatinine Ratio 26.8 (10-20); Calcium 8.3 mg/dl (8.5-10.1); Creatinine Clr Calc Pharmacy 58.4 ml/min; Est GFR (African American) 67.9; Est GFR (Non-African American) 58.6; Potassium 4.3 mmol/L (3.5-5.1)
--- NOTE | 2021-02-08 08:14 | Anesthesiology Progress Note ---
Date of Service February 08, 2021 Anesthesia Post Procedure Vital Signs Vital Signs: Temp Pulse Pulse Resp BP Pulse Ox 02/08/21 07:17 36.5 C 58 L 18 125/66 94 02/08/21 02:38 36.5 C 68 17 122/62 95 02/07/21 22:00 36.7 C 78 17 136/68 93 02/07/21 20:46 91 H 125/67 02/07/21 19:20 83 18 132/68 96 02/07/21 18:45 36.6 C 78 16 136/71 95 02/07/21 18:12 36.6 C 80 16 131/68 94 02/07/21 18:05 73 14 129/67 94 02/07/21 17:55 73 14 131/69 94 02/07/21 17:45 73 12 127/66 95 02/07/21 17:35 73 16 132/64 95 02/07/21 17:25 63 12 128/63 95 02/07/21 17:14 68 12 134/67 95 02/07/21 17:05 69 12 131/64 95 02/07/21 16:55 36.4 C L 70 14 120/64 95 02/07/21 16:45 76 15 125/65 98 02/07/21 16:35 70 15 118/63 98 02/07/21 16:25 66 15 115/66 97 02/07/21 16:19 37 C 70 16 104/62 97 02/07/21 13:27 57 L 20 139/69 95 02/07/21 12:35 36.7 C 61 20 139/62 94 Notes Mental Status: alert / awake / arousable Nausea / Vomiting: adequately controlled Pain: adequately controlled Airway Patency, RR, SpO2: stable & adequate BP & HR: stable & adequate Hydration State: stable & adequate Neuraxial Anesthesia: was administered and sensory block resolved Anesthetic Complications: no major complications apparent and Pt Satisfied with anesthetic care
[2021-02-08] MEDS ORDERED: FLUTICASONE PROPIONATE NA SPR 16 GM BTL SCH (09:00)
[2021-02-08] MEDS ORDERED: MULTIVITAMIN TAB PO SCH (09:00)
[2021-02-08] MEDS ORDERED: ASPIRIN 81 MG ECTAB PO SCH (09:00)
[2021-02-08] MEDS ORDERED: FLUTICASONE/VILANTEROL 200/25MCG 14 PUFFS/INHALER INH SCH (09:00)
[2021-02-08] MEDS: DOCUSATE SODIUM 100 MG CAP PO SCH (09:32)
--- NOTE | 2021-02-08 09:57 | Orthopedic Progress Note ---
Date of Service February 08, 2021 Assessment & Plan (1) Failed total left knee replacement: Status post revision left total knee arthroplasty, polyexchange, removal of patella button POD#1 -Vancomycin x24 -DVT prophylaxis: SCDs, teds, 81 mg ASA twice daily -Weight-bear as tolerates left lower extremity -PT/OT -Postoperative x-ray demonstrates well aligned well fixed prosthesis without fracture or dislocation -A.m. lab - as above, hgb 12.8 -DC planning - home with OP PT Admission and Anticipated Discharge Date Admission Date: February 07, 2021 Subjective Post Operative Progress Note Patient seen sitting in chair at bedside, comfortable, denies complaints, pain well controlled, no acute issues. Denies F/C/N/V/SOB/CP. Review of Systems Review of Systems: All systems reviewed & are unremarkable except as noted in HPI & below Constitutional: as per Subjective / HPI Physical Exam Physical Exam: LLE NVSI +EHL/FHL/TA/GS SILT grossly, +2 DP pulse, compartments soft NT, dressing cdi. Constitutional: WD/WN, vitals as above Results & Data ([facility]) Vital Signs (Past 12 Hours) Vital Signs Temp Pulse Pulse Resp BP Pulse Ox 02/08/21 07:17 36.5 C 58 L 18 125/66 94 02/08/21 02:38 36.5 C 68 17 122/62 95 02/07/21 22:00 36.7 C 78 17 136/68 93 Laboratory Results 02/08/21 02/08/21 Range/Units 05:28 05:28 WBC 10.86 H (4.8-10.8) K/uL RBC 4.02 L (4.7-6.1) M/uL Hgb 12.8 L (14.0-18.0) g/dL Hct 37.7 L (42-52) % MCV 93.8 (80-100) fL MCH 31.8 (25-34) pg MCHC 34.0 (32-36) g/dL RDW Std Deviation 49.5 H (36.4-46.3) fL RDW Coeff of Kristel 14.3 (11.5-14.5) % Plt Count 231 (130-400) K/uL MPV 10.3 (7.4-10.4) fL Sodium 140 (136-145) mmol/L Potassium 4.3 (3.5-5.1) mmol/L Chloride 112 H (98-107) mmol/L Carbon Dioxide 23 (21-32) mmol/L Anion Gap 5.0 (3-11) BUN 32 H (7-18) mg/dl Creatinine 1.19 (0.6-1.4) mg/dl Est Cr Clr Drug Dosing 58.4 ml/min Est GFR ( Amer) 67.9 Est GFR (Non-Af Amer) 58.6 BUN/Creatinine Ratio 26.8 H (10-20) Glucose 129 H (70-99) mg/dl Calcium 8.3 L (8.5-10.1) mg/dl
[2021-02-08] MEDS: VANCOMYCIN HCL 1,500 MG in SODIUM CHLORIDE 0.9% 500 ML IV SCH (11:43)
[2021-02-08] MEDS ORDERED: CeleBREX 200 MG CAP PO SCH (21:00)
--- NOTE | 2021-02-08 21:53 | Discharge Summary ---
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 Previously underwent revision left total knee 07/01/[address] Sanford. The patient has failed outpatient conservative treatments to this point which included NSAIDs, activity modification and a home exercise/walking program. The patient's pain and limited function have progressed to the point where they severely hinder their activities of daily living and they no longer tolerate exercise programs. They are requesting to proceed with revision total knee replacement surgery. Principal Diagnosis Revision left total knee replacement Discharge Exam LLE NVSI +EHL/FHL/TA/GS SILT grossly, +2 DP pulse, compartments soft NT, dressing cdi. Constitutional WD/WN, vitals as above Discharge Data Allergies Allergy/AdvReac Type Severity Reaction Status Date / Time ceftriaxone Allergy Unknown RASH/HIVES Verified 02/07/21 12:48 Cephalosporins Allergy Unknown RASH Verified 02/07/21 12:48 clindamycin Allergy Unknown RASH HIVES Verified 02/07/21 12:48 latex Allergy Unknown RASH Verified 02/07/21 12:48 orange Allergy Unknown ORANGES OR Verified 02/07/21 12:48 JUICE-DRY SKIN,WHEEZING pollen extracts Allergy Unknown POLLEN,GRASS Verified 02/07/21 12:48 HAYFEVER AGGRAVATES ASTHMA adhesive AdvReac Blister Verified 02/07/21 12:48 Procedures Performed Operation Date: 02/07/21 15:00 Actual Procedures p Left Total Knee Revision(Left) - Robin Brizuela DO Ordered Studies 02/07/21 05:00 US - OR guided needle placemen Routine Hospital Course (1) Failed total left knee replacement: The patient is a 75 -year-old male who presents with 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 The patient's symptoms have progressed to the point where it has been difficult to perform even normal activities of daily living. I indicated the patient for a revision left total knee arthroplasty, the risks, benefits and complications of the procedure include but not limited to infection, bleeding, damage to bone, nerves, vessels, surrounding soft tissue, may develop blood clots, loss of function, leg length discrepancy, dislocation, failure of the components, loosening of the components, the need for additional surgery and . The patient wished to proceed with surgery at this time and informed consent was obtained. Hospital Course: On 02/07/21 the patient was taken to the operating room, adequate anesthesia administered and underwent a revision left total knee arthroplasty. The patient tolerated the procedure well and was taken to the PACU in stable condition. Post-operatively the patient was started on a DVT ppx medication and given appropriate IV antibiotics. Consults were placed to physical therapy, occupational therapy and case management. On POD#1, the patient did well overnight and their pain was well controlled. Labs were drawn and the Hgb was 12.8. The patient progressed well with PT. Dressings were changed at this time and the incision was clean, dry and intact. The patients hospital stay was relatively uneventful and they were deemed stable by the orthopedic team and consultants to be discharged home with OP PT on 02/08/21. Discharge Instructions: Upon discharge the patient may weight bear as tolerates through their operative extremity. They were instructed to keep the incision clean and dry at all times. The patient may shower but should not submerge the incision, avoid bathing, pools and hot tubs. The patient was given a script for pain medication and should take as instructed. The patient was given a script for DVT ppx 81mg ASA BID and should take as directed. The patient was instructed to not drive or travel for long distances until cleared to do so. If the patient develops any symptoms of fevers, chills, nausea, vomiting, increased redness, swelling, pain or drainage from the surgical site, they should notify the office and/or proceed to the nearest emergency room. The patient should follow up in 10-14 days after surgery for their routine post-operative follow-up appointment and should call the office, to confirm the date and time. Status post revision left total knee arthroplasty, polyexchange, removal of patella button POD#1 -Vancomycin x24 -DVT prophylaxis: SCDs, teds, 81 mg ASA twice daily -Weight-bear as tolerates left lower extremity -PT/OT -Postoperative x-ray demonstrates well aligned well fixed prosthesis without fracture or dislocation -A.m. lab - as above, hgb 12.8 -DC planning - home with OP PT Total Time Total Time Spent Total Time Spent (In Minutes): 30 Discharge Plan Discharge Items Patient Disposition: Home - Self-Care Reason For Visit: Left Knee Failed Total Knee Arthroplasty Discharge Diagnosis: Revision left total knee, poly exchange, removal of loose patella. Condition on Discharge: Good Activity: Per Instructions section Lifting: Wait until after follow-up appointment Bathing: Keep incision dry Bathing Comment: No bathing, pools or hot tubs. Sexual Activity: Wait until after follow-up appointment Exercise/Sports: Wait until after follow-up appointment Driving/Machine Use: No Driving. Non-emergency contact: Primary Care Provider and Surgeon Call non-emergency contact if: you have any medication questions, your symptoms worsen, your pain is not controlled, your pain is worsening, your pain is unusual for you, your pain is concerning for you, you have a fever, your temperature is above 101, your wound has increased redness, your wound has increased drainage and your wound pain has increased Follow-up/Referrals: Gordo Richter M.D. [Primary Care Provider] - Diet: Regular Addtl Attending Provider Instructions: ACTIVITY RECOMMENDATIONS: SELF CARE INSTRUCTIONS AFTER TOTAL KNEE REPLACEMENT A. You may need to continue a physical therapy program after discharge from the hospital. There are several options available to you. Your doctor will assist you in selecting the best one for you. 1. An out-patient facility 2 to 3 times a week for therapy or home therapy. 2. Continue working on all exercises taught to you in the hospital. Your goals should be to increase bending of your knee to 90 degrees and beyond and to fully straighten your knee. B. You may progress at your own pace from walking with a walker or crutches to a cane; then to no assistive devices. C. Make walking a part of your daily routine. Be up as much as comfortable with rest periods throughout the day. Rest with leg elevation is very important. Use the ice wrap frequently for the first 3-4 weeks. D. There are no restrictions on activities. You may ride in a car, shop, participate in sueding machine tender and all social activities. E. Wear the long elastic stockings (BURT hose) 20 hours a day for 2 weeks after surgery. They can be removed several times a day for laundering and for a bath. F. You may shower, no tub baths until cleared by your doctor. SPECIAL CARE INSTRUCTIONS: VERY IMPORTANT TO READ AND REVIEW A. There are a few signs you need to watch for after you are home. Call [facility] if you notice any of the followin. Increased severe knee pain. Some pain is expected especially when you exercise. 2. Increased swelling in your leg or knee; pain or swelling of the calf muscle in either lower leg. 3. Any fluid drainage from the incision. 4. Shortness of breath or chest pain. B. Please call [facility] at if you have any concerns or questions about your operation or recovery. The doctor or his nurse will return your call promptly. C. You must take antibiotics before dental work, bladder, bowel or other surgery. Your doctor will provide you with a permanent care to carry describing this precaution. IMPORTANT: * REMEMBER TO TAKE ASPIRIN, 81 MG, TWICE DAILY FOR 4 WEEKS UNLESS OTHERWISE DIRECTED. THIS IS YOUR BLOOD THINNER. * HIGH RISK PATIENTS MAY BE PRESCRIBED A STRONGER BLOOD THINNER. THIS WILL BE PROVIDED AT DISCHARGE. * CALL IF INCREASED PAIN, REDNESS, DRAINAGE OR FEVER GREATER THAT 101. * WEAR BURT HOSE 20 HOURS PER DAY FOR 2 WEEKS. *KEEP INCISION CLEAN AND DRY AT ALL TIMES, IF DRY REMOVAL DRESSING AND LEAVE OPEN TO AIR. FOLLOW UP VISIT: If appointment is not already scheduled: Please call [facility] to make a follow-up appointment for 2 weeks after your surgery at . Pending Studies at Discharge: No Stand-Alone Forms: My [facility], Opioid Pain Management Medications and DC Order Prescriptions: New acetaminophen 500 mg Tablet 1,000 mg PO Q8 PRN (Reason: fever or pain) Qty: 90 RF: 0 aspirin 81 mg Tablet,Delayed Release (Dr/Ec) 81 mg PO BID Qty: 56 RF: 0 celecoxib [Celebrex] 200 mg Capsule 200 mg PO BID PRN (Reason: pain/inflammation) Qty: 28 RF: 0 oxycodone 5 mg Tablet 5 mg PO Q6H MDD 4 PRN (Reason: pain) Qty: 30 RF: 0 sennosides [Senokot] 8.6 mg Tablet 17.2 mg PO HS PRN (Reason: constipation) Qty: 28 RF: 0 Continued vitamin K2 100 mcg Capsule 100 mcg PO QAM RF: 0 atenolol 25 mg Tablet 25 mg PO HS RF: 0 ascorbic acid (vitamin C) [Vitamin C] 500 mg Tablet 500 mg PO QAM RF: 0 simvastatin 20 mg Tablet 20 mg PO HS RF: 0 mometasone 50 mcg/actuation [place],Non-Aerosol 2 spray INTRANASAL QAM RF: 0 montelukast 10 mg Tablet 10 mg PO HS RF: 0 lisinopril 40 mg Tablet 40 mg PO HS RF: 0 multivitamin Capsule 1 cap PO QAM RF: 0 cholecalciferol (vitamin D3) [Vitamin D3] 1,000 unit Tablet,Chewable 5,000 unit PO QAM RF: 0 Zyrtec 10 mg Capsule 10 mg PO QAM RF: 0 clotrimazole [Athletic Foot Cream] 1 % Cream 1 applic TOPICAL DAILY RF: 0 fluticasone propion-salmeterol [Advair Diskus] 250-50 mcg/dose Blister With Device 1 inh INHALATION BID RF: 0 sennosides [Senokot] 8.6 mg Tablet 17.2 mg PO HS PRN (Reason: constipation) Qty: 28 RF: 0 Discontinued escitalopram oxalate 20 mg Tablet 20 mg PO HS RF: 0 celecoxib [Celebrex] 200 mg Capsule 200 mg PO BID PRN (Reason: pain/inflammation) Qty: 28 RF: 0 acetaminophen 500 mg Tablet 1,000 mg PO Q8 PRN (Reason: pain/fevers) Qty: 90 RF: 0 Discharge Orders: Discharge Order (Routine); Ordered 02/08/21 Ordered By: Robin Wilson/Other Patient Handouts: DVT Post Op Prevention Admission Data Admit Date/Time: 02/07/21 16:21 Attending Provider: Robin Brizuela Admit Provider: Robin Brizuela Primary Care Provider: Gordo Richter Other Interventions: Discharge Summary Assessment (RN) Last Done: 02/08/21 12:39
== END 2021-02-08 14:44 | disposition home or self-care (01) ==
LOC: 3N 12:26 → ASU 12:26

== ENCOUNTER 2021-03-29 10:30 | Observation (INO) ==
--- NOTE | 2021-03-28 08:38 | Anesthesiology Consultation ---
Date of Service March 28, 2021 Assessment & Plan (1) Encounter for pre-operative examination: Chart Review Chart Review: Acceptable Risk for Surgery and Patient NOT seen in Pre Admission Testing Per nursing assessment 03/28/21, pt resides in [facility]. Travels to [place] and [place] for shopping. Wears proper PPE. No known Covid positive contacts or Covid related symptoms. No known Covid infection in the past 90 days. Covid test 03/25/21= negative Left TKA Revision 02/07/21= Done under SAB at L3-4 with one attempt. No anesthesia issues noted per anesthesia record. History Surgery Operation Date: 03/29/21 13:00 Proposed Procedures p Left Knee Incision and Drainage - Robin Brizuela DO s Left Knee Arthrotomy Repair, Poly Swap - Robin Brizuela DO Height/Weight Height: 5 ft 8 in Weight: 96.162 kg Allergies Allergy/AdvReac Type Severity Reaction Status Date / Time ceftriaxone Allergy Unknown RASH/HIVES Verified 03/28/21 07:32 Cephalosporins Allergy Unknown RASH Verified 03/28/21 07:32 clindamycin Allergy Unknown RASH HIVES Verified 03/28/21 07:32 latex Allergy Unknown RASH Verified 03/28/21 07:32 orange Allergy Unknown ORANGES OR Verified 03/28/21 07:32 JUICE-DRY SKIN,WHEEZING pollen extracts Allergy Unknown POLLEN,GRASS Verified 03/28/21 07:32 HAYFEVER AGGRAVATES ASTHMA adhesive AdvReac Blister Verified 03/28/21 07:32 Medications Home Medications Medication Instructions Recorded Confirmed Last Taken Zyrtec 10 mg PO QAM 10/23/19 03/28/21 02/06/21 22:00 ascorbic acid (vitamin C) [Vitamin 500 mg PO QAM 10/23/19 03/28/21 02/06/21 08:00 C] atenolol 25 mg PO HS 10/23/19 03/28/21 02/06/21 22:00 cholecalciferol (vitamin D3) 5,000 unit PO QAM 10/23/19 03/28/21 02/06/21 08:00 [Vitamin D3] clotrimazole [Athletic Foot Cream] 1 applic TOPICAL DAILY 10/23/19 03/28/21 02/07/21 08:00 fluticasone propion-salmeterol 1 inh INHALATION BID 10/23/19 03/28/21 02/06/21 08:00 [Advair Diskus] lisinopril 40 mg PO HS 10/23/19 03/28/21 02/06/21 22:00 mometasone 2 spray INTRANASAL QAM 10/23/19 03/28/21 02/06/21 08:00 montelukast 10 mg PO HS 10/23/19 03/28/21 02/06/21 22:30 multivitamin 1 cap PO QAM 10/23/19 03/28/21 02/06/21 08:00 simvastatin 20 mg PO HS 10/23/19 03/28/21 02/06/21 22:00 vitamin K2 100 mcg PO QAM 01/04/21 03/28/21 02/06/21 08:00 acetaminophen 1,000 mg PO Q8 PRN #90 tab 02/07/21 03/28/21 Unknown celecoxib [Celebrex] 200 mg PO BID PRN #28 cap 02/07/21 03/28/21 Unknown oxycodone 5 mg PO Q6H PRN #30 tab MDD 4 02/07/21 03/28/21 Unknown sennosides [Senokot] 17.2 mg PO HS PRN #28 tab 02/07/21 03/28/21 Unknown aspirin 81 mg PO HS 03/28/21 03/28/21 Unknown Past Medical History Medical History Allergic rhinitis Per records Asthma Per records Depression History of cellulitis X3 IN HX - MOST RECENT 2003. 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 Hypertension Per records Lumbar spinal stenosis L4 Obesity Past Family History Family History Sister Family history of diabetes mellitus Family history of lymphoma Sister Family history of diabetes mellitus Family history of lymphoma Other No family history of adverse response to anesthesia Past Surgical History Surgical History History of arthroplasty of left hip History of colonoscopy History of hip surgery R HIP FUSION History of neck surgery TODDLER, SURGERY TO FLORY SWOLLEN GLANDS History of revision of total replacement of left knee joint History of revision of total replacement of right knee joint History of rotator cuff surgery L X 2 History of tonsillectomy History of total left knee replacement History of total right knee replacement Social History Smoking Status: Former smoker tobacco type: cigarettes Do You Dip or Chew Tobacco: No Smoking End Date: 1979 Hx Alcohol Use: Yes alcohol intake frequency: holidays/special occasions only Hx Substance Use: No substance use type: does not use Lab Results Anesthesia Preop Results Results Anesthesia Widget: WBC 8.85 K/uL (4.8-10.8) 03/25/21 Hgb 13.5 g/dL (14.0-18.0) L 03/25/21 Hct 40.6 % (42-52) L 03/25/21 Plt 324 K/uL (130-400) 03/25/21 Na 141 mmol/L (136-145) 03/25/21 K 4.4 mmol/L (3.5-5.1) 03/25/21 Cl 113 mmol/L (98-107) H 03/25/21 CO2 24 mmol/L (21-32) 03/25/21 BUN 26 mg/dl (7-18) H 03/25/21 Creat 1.09 mg/dl (0.6-1.4) 03/25/21 Glucose Level 99 mg/dl (70-99) 03/25/21 PT 9.8 Seconds (9.0-12.0) 03/25/21 PTT 25.6 Seconds (21.0-31.0) 03/25/21 INR 1.0 (0.9-1.1) 03/25/21 HA1c 5.7 % (4.5-5.6) H 03/25/21 Urine Color Yellow 03/25/21 Urine Appearance Clear (Clear) 03/25/21 Urine pH 5.0 (4.5-7.5) 03/25/21 Urine Specific [place] 1.025 (1.000-1.030) 03/25/21 Urine Protein Negative (Negative) 03/25/21 Urine Glucose (UA) Negative (Negative) 03/25/21 Urine Ketones Trace (Negative) H 03/25/21 Urine Blood Negative (Negative) 03/25/21 Urine Nitrite Negative (Negative) 03/25/21 Urine Bilirubin Negative (Negative) 03/25/21 Urine Urobilinogen Negative (Negative) 03/25/21 Urine Leukocyte Esterase Trace (Negative) H 03/25/21 Urine WBC (Auto) 5-10 /hpf (0-5) H 03/25/21 Urine RBC (Auto) 0-4 /hpf (0-4) 03/25/21 Urine Hyaline Casts (Auto) 1-5 /lpf (0-5) 03/25/21 Urine Epithelial Cells (Auto) 20-30 /lpf (0-5) H 03/25/21 Urine Bacteria (Auto) Negative (Negative) 03/25/21 Testing Electrocardiogram Date: 01/12/21 Findings: + NSR @ (74bpm) No significant change from 10/29/19. Chest X-Ray Date: 01/12/21 Findings: + NAD
--- NOTE | 2021-03-28 20:06 | History & Physical Report ---
Date of Service March 29, 2021 Assessment & Plan (1) Failed total left knee replacement: I have indicated the patient for revision left total knee replacement, poly exchange, I+D and repair of medial parapatellar arthrotomy. The risks, benefits and complications of surgery were explained to the patient which include but not limited to infection, acute blood loss, DVT/PE, injury to nerves, vessels, bone, soft tissue, arthrofibrosis, chronic pain, failure of the prosthesis, knee dislocation, leg length discrepancy, need for additional surgery, cardiac and pulmonary events and . The patient wished to proceed with surgery and informed consent was obtained at this time. We will plan for lovenox post-operatively for DVT prophylaxis. Upon discharge the patient will be discharged home with home health services. Appropriate clearances by PCP were obtained. History of Present Illness Chief Complaint: Failed left total knee, failure of medial parapatellar arthrotomy repair Primary Care Provider: Gordo Richter The patient is a 76 year old male who presents with complaints of increased pain and instability/weakness x 2 weeks after feeling a "pop" in his knee when bending it. XRs obtained in the office showed lateral subluxation/dislocation of the patella. On exam the patient had obvious defect of the medial parapatellar arthrotomy repair. The patient underwent revision left total knee on 02/07/21, removal of patella button and poly exchange. Allergies Allergy/AdvReac Type Severity Reaction Status Date / Time ceftriaxone Allergy Intermediate RASH/HIVES Verified 03/29/21 10:54 Cephalosporins Allergy Intermediate RASH Verified 03/29/21 10:54 clindamycin Allergy Intermediate RASH HIVES Verified 03/29/21 10:54 latex Allergy Intermediate RASH Verified 03/29/21 10:54 orange Allergy Intermediate ORANGES OR Verified 03/29/21 10:54 JUICE-DRY SKIN,WHEEZING pollen extracts Allergy Intermediate POLLEN,GRASS Verified 03/29/21 10:54 HAYFEVER AGGRAVATES ASTHMA adhesive AdvReac Intermediate Blister Verified 03/29/21 10:54 Home Medications Medication Instructions Recorded Confirmed Type Zyrtec 10 mg PO QAM 10/23/19 03/29/21 History ascorbic acid (vitamin C) [Vitamin 500 mg PO QAM 10/23/19 03/29/21 History C] atenolol 25 mg PO HS 10/23/19 03/29/21 History cholecalciferol (vitamin D3) 5,000 unit PO QAM 10/23/19 03/29/21 History [Vitamin D3] clotrimazole [Athletic Foot Cream] 1 applic TOPICAL DAILY 10/23/19 03/29/21 History fluticasone propion-salmeterol 1 inh INHALATION BID 10/23/19 03/29/21 History [Advair Diskus] lisinopril 40 mg PO HS 10/23/19 03/29/21 History mometasone 2 spray INTRANASAL QAM 10/23/19 03/29/21 History montelukast 10 mg PO HS 10/23/19 03/29/21 History multivitamin 1 cap PO QAM 10/23/19 03/29/21 History simvastatin 20 mg PO HS 10/23/19 03/29/21 History vitamin K2 100 mcg PO QAM 01/04/21 03/29/21 History acetaminophen 1,000 mg PO Q8 PRN #90 tab 02/07/21 03/29/21 Rx celecoxib [Celebrex] 200 mg PO BID PRN #28 cap 02/07/21 03/29/21 Rx oxycodone 5 mg PO Q6H PRN #30 tab MDD 4 02/07/21 03/29/21 Rx sennosides [Senokot] 17.2 mg PO HS PRN #28 tab 02/07/21 03/29/21 Rx aspirin 81 mg PO HS 03/28/21 03/29/21 History Past Med/Surg History Medical History Allergic rhinitis Per records Asthma Per records Depression History of cellulitis X3 IN HX - MOST RECENT 2003. 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 Hypertension Per records Lumbar spinal stenosis L4 Obesity Surgical History History of arthroplasty of left hip History of colonoscopy History of hip surgery R HIP FUSION History of neck surgery TODDLER, SURGERY TO FLORY SWOLLEN GLANDS History of revision of total replacement of left knee joint History of revision of total replacement of right knee joint History of rotator cuff surgery L X 2 History of tonsillectomy History of total left knee replacement History of total right knee replacement Family History Sister Family history of diabetes mellitus Family history of lymphoma Sister Family history of diabetes mellitus Family history of lymphoma Other No family history of adverse response to anesthesia Social History Smoking Status: Former smoker Smoking End Date: 1979; Second Hand Exposure: Yes (hx); Do You Dip or Chew Tobacco: No; Tobacco Cessation Education Requested by Patient: No Hx Alcohol Use: Yes Hx Substance Use: No Preferred Language: Belgian Communication Ability: Effective Chemical Applicator Required: No Beliefs That Will Affect Care: None marital status: Current Living Situation: Spouse Other Information That Helps Us Care for You: No Feels Safe at Home: Yes Safety Concerns: Feels Safe At This Time Assistive Devices: Crutches and Glasses Review of Systems Review of Systems: All systems reviewed & are unremarkable except as noted in HPI & below Constitutional: as per Subjective / HPI Physical Exam Physical Exam: LLE NVSI +EHL/FHL/TA/GS SILT grossly, +2 DP pulse, compartments soft NT, incision CDI. Lateral subluxation of patella with medial parapatellar fascial defect. Constitutional: WD/WN, vitals as above Eyes: PERRL, conjunctivae normal, anicteric sclerae ENMT: external ear and nose normal, oropharynx normal Neck: trachea midline, no thyromegaly Respiratory: normal respiratory effort, lungs clear to auscultation Cardiovascular: RRR, no murmur, no edema Gastrointestinal (Abdomen): normal bowel sounds, soft, nontender, no hepatosplenomegaly Musculoskeletal: no cyanosis or clubbing, extremities motor strength 5/5 Skin: no rashes, warm and dry Neurologic: patellar DTR's 2+ bilat, sensation intact Psychiatric: A+Ox3, euthymic affect Lymphatic: no cervical or axillary lymphadenopathy Results & Data Results & Data ([facility]) Diagnostic Findings XRs of the left knee demonstrate a well aligned, well fixed total knee prosthesis with lateral dislocation of the patella.
[~2021-03-29 10:30] MED LIST changes: -BUPIVACAINE 0.5 % 5 MG/1 ML PF 10ML VIAL ONE; -ROPIVACAINE 0.5% 5 MG/ML 30 ML VIAL ONE; -ROPIVACAINE 0.5% HCL/PF 150 MG, BUPIVACAINE 0.75% MPF 20 ML, EPINEPHrine 30MG/30ML (OR ... INFIL SCH; +VANCOMYCIN HCL 1,000 MG/270 ML BAG IV SCH; -VANCOMYCIN HCL 1,500 MG in SODIUM CHLORIDE 0.9% 500 ML IV SCH
[2021-03-29] MEDS ORDERED: ACETAMINOPHEN 500 MG TAB ONE (11:09)
[2021-03-29] MEDS ORDERED: CeleBREX 200 MG CAP ONE (11:10)
[2021-03-29] MEDS ORDERED: dexAMETHasone 4 MG TAB PO ONE (11:11)
[2021-03-29] MEDS ORDERED: GABAPENTIN 300 MG CAP ONE (11:13)
[2021-03-29] MEDS ORDERED: FAMOTIDINE 20 MG TAB ONE (11:13)
[2021-03-29] MEDS ORDERED: METOCLOPRAMIDE HCL 10 MG TABLET ONE (11:14)
[2021-03-29] MEDS ORDERED: TRANEXAMIC ACID / 0.7% NACL 1000MG/100ML BAG IV ONE ×2 (11:15)
--- NOTE | 2021-03-29 13:19 | History & Physical Bridge Note ---
Date of Service March 29, 2021 History & Physical Bridge Note I have examined the patient, reviewed the History & Physical and in the interval since the performance of the History & Physical I have noted the following changes of clinical significance: no changes noted
[2021-03-29] MEDS ORDERED: MIDAZOLAM HCL 1 MG/ML 2ML VIAL ONE (13:22)
[2021-03-29] MEDS ORDERED: KETAMINE 50 MG/5 ML SYRINGE ONE (13:22)
[2021-03-29] MEDS ORDERED: ROPIVACAINE 0.5% 5 MG/ML 30 ML VIAL ONE (13:29)
[2021-03-29] MEDS ORDERED: BUPIVACAINE 0.5 % 5 MG/1 ML PF 10ML VIAL ONE (13:29)
[2021-03-29] MEDS ORDERED: ROPIVACAINE 0.5% HCL/PF 150 MG, BUPIVACAINE 0.75% MPF 20 ML, EPINEPHrine 30MG/30ML (OR ... INFIL SCH (14:00)
[2021-03-29] MEDS ORDERED: PROPOFOL IV EMULSION 10 MG/ML 20 ML VIAL IV ONE (14:16)
[2021-03-29] MEDS ORDERED: LIDOCAINE HCL 2% 2 ML VIAL/AMP(20MG/ML) INFIL ONE (14:16)
--- NOTE | 2021-03-29 15:15 | Post Operative Brief Note ---
Immediate Post Op Note v1 Date of Surgery March 29, 2021 Pre & Post Diagnosis Operation Date: 03/29/21 13:00 Pre-Op Diagnosis: Left Knee Failed Total Knee Arthroplasty; Failure of Medial Parapatellar Arthrotomy Repair Post-Op Diagnosis: Left Knee Failed Total Knee Arthroplasty; Failure of Medial Parapatellar Arthrotomy Repair I identified the patient and participated in the time-out.: Yes Procedure Operation Date: 03/29/21 13:00 Actual Procedures p Left Knee Incision and Drainage, Repair of Arthrotomy(Left) - Robin Brizuela DO Surgeon Robin Brizuela DO Amortization Clerk Sonny Trejo Estimated Blood Loss 50 Findings Consistent with Post-Op Diagnosis Fluids See anesthesia report Specimens None Anesthesia Type Spinal MAC Complications none Disposition Disposition: Recovery Room Overlapping Procedure I was present for: the critical portions of procedure. I was immediately available: during the entire case. Back up surgeon: was not required during procedure.
--- NOTE | 2021-03-29 15:16 | Operative Report ---
Post Operative Report Pre & Post Diagnosis Operation Date: 03/29/21 13:00 Pre-Op Diagnosis: Left Knee Failed Total Knee Arthroplasty; Failure of Medial Parapatellar Arthrotomy Repair Post-Op Diagnosis: Left Knee Failed Total Knee Arthroplasty; Failure of Medial Parapatellar Arthrotomy Repair I identified the patient and participated in the time-out.: Yes Procedure Operation Date: 03/29/21 13:00 Actual Procedures p Left Knee Incision and Drainage, Repair of Arthrotomy(Left) - Robin Brizuela DO Surgeon Robin Brizuela, Felt Hat Inspector And Packer Sonny Trejo Estimated Blood Loss 50 Findings Consistent with Post-Op Diagnosis Fluids See anesthesia report Specimens none Anesthesia Type Spinal MAC Complications none Disposition Disposition: Recovery Room Indications The patient is a 76 year old male who presents with complaints of increased pain and instability/weakness x 2 weeks after feeling a "pop" in his knee when bending it. XRs obtained in the office showed lateral subluxation/dislocation of the patella. On exam the patient had obvious defect of the medial parapatellar arthrotomy repair. The patient underwent revision left total knee on 02/07/21, removal of patella button and poly exchange. I have indicated the patient for revision left total knee replacement, poly exchange, I+D and repair of medial parapatellar arthrotomy. The risks, benefits and complications of surgery were explained to the patient which include but not limited to infection, acute blood loss, DVT/PE, injury to nerves, vessels, bone, soft tissue, arthrofibrosis, chronic pain, failure of the prosthesis, knee dislocation, leg length discrepancy, need for additional surgery, cardiac and pulmonary events and . The patient wished to proceed with surgery and informed consent was obtained at this time. We will plan for lovenox post- operatively for DVT prophylaxis. Upon discharge the patient will be discharged home with home health services. Appropriate clearances by PCP were obtained. Description of Procedure Following induction of spinal anesthesia, a tourniquet was applied to the proximal aspect of the thigh and the patient's left leg was prepped and draped in the usual sterile manner. A timeout was performed, patient identified and site marissa confirmed. Appropriate pre-operative IV antibiotics were given. The limb was exsanguinated with an Esmarch bandage and tourniquet was inflated to 300 mmHg. A longitudinal midline incision was made over the anterior knee in line with the prior incision. Subcutaneous tissue was sharply dissected down to fascia. Electrocautery was used for hemostasis. There was a large defect of the medial arthrotomy repair. Hematoma was evacuated and the arthrotomy was extended proximally and distally and the tissue edges were cleared of any fibrous scar tissue. Patella was everted and the knee was flexed. A Ramirez retractor was used to expose the synovium above on the anterior aspect of the femur and removed down to bone. Next, the anterior fat pad was removed to aid in visualization. The medial face of the tibia was cleared of soft tissue first with a Bovie and a bowles elevator. This tissue was retracted posteriorly using a blunt Hohmann. Further inspection of the total knee found the prosthesis to be well aligned and well fixed without signs of wear. The knee was found to be well balanced, well aligned with excellent patella tracking. A Betadine soak was performed. After 3 minutes, the knee was once more irrigated with copious sterile saline solution with bacitracin. The knee was injected with the remaining Orthomix which includes a combination of Ropivicaine 0.5% 150mg, Bupivicaine 0.5%/Epinephrine 1:200,000 30ml, Toradol 30mg, Dexamethasone 4mg, Ketamine 10mg, Clonidine 100mcg and NSS 30ml solution. The capsulotomy was closed with #5 Fiberwire. The knee was flexed to 90 degrees and there was no defects in the arthrotomy appreciated. Next, the subcutaneous tissue was closed with 2-0 Vicryl suture and skin was closed with stables. A sterile dry dressing was applied which included Xeroform, 4 x 4s, ABDs, webrill and jeanette wrap. The knee was placed in a knee immobilizer and the Tourniquet was deflated at 59 minutes. The patient tolerated the procedure well and was taken to the PACU in stable condition. Due to the complex nature of the procedure, the entire surgery was performed with the operational assistance of Sonny Trejo PA-C. The public aid eligibility assistant, under direct supervision, was involved in the actual performance of all aspects of the surgical procedure including patient positioning, hemostasis, tissue retraction, instrument management and wound closure. I attest to the content of the Intraoperative Record and any orders documented therein. Any exceptions are noted below.
--- NOTE | 2021-03-29 15:52 | XRay Report ---
XR knee LT 1 or 2V routine CLINICAL HISTORY: Postop. Left knee implant. COMPARISON STUDY: Left knee 02/07/2021. FINDINGS: Anterior skin mckayla are noted. Soft tissue swelling anteriorly consistent with postoperat olga lidia change. There is again noted a long stemmed left total knee arthroplasty. The hardware appears in tact. No fracture or dislocation. IMPRESSION: Left knee total arthroplasty again noted. No evidence for hardware complication. ACT 112: Negative or not required by law. Electronically signed by: Harshad Meraz M.D. 03/29/2021 3:51 PM
--- NOTE | 2021-03-29 15:55 | Anesthesiology Progress Note ---
Date of Service March 29, 2021 Anesthesia Post Procedure Vital Signs Vital Signs: Temp Pulse Pulse Resp BP Pulse Ox 03/29/21 15:50 64 14 111/57 L 97 03/29/21 15:40 66 17 110/56 L 99 03/29/21 15:32 36.0 C L 68 13 103/50 L 96 03/29/21 10:55 36.8 C 69 20 149/75 H 95 Pain Intensity Left Knee: Pain Intensity: 3 Transfer of Care Handoff Completed per policy Notes Mental Status: alert / awake / arousable and participated in evaluation Patient Amnestic to Procedure: Yes Nausea / Vomiting: adequately controlled Pain: adequately controlled Airway Patency, RR, SpO2: stable & adequate BP & HR: stable & adequate Hydration State: stable & adequate Anesthetic Complications: no major complications apparent and Pt Satisfied with anesthetic care
--- NOTE | 2021-03-29 16:08 | Orthopedic Progress Note ---
Date of Service March 29, 2021 Assessment & Plan (1) Failed total left knee replacement: Status post I&D left total knee and repair of medial parapatellar arthrotomy -Vanco x24 -DVT prophylaxis: SCDs, teds, 81 mg ASA twice daily -Weight-bear as tolerates left lower extremity -Maintain knee immobilizer, may remove for gentle range of motion exercises 0 to 70 degrees of flexion -PT/OT -Postoperative x-ray demonstrates a well aligned well fixed total knee prosthesis without fracture or dislocation. -A.m. labs -DC planning Subjective Post Operative Progress Note Patient seen in PACU, comfortable, denies complaints, pain well controlled, no acute issues. Review of Systems Review of Systems: All systems reviewed & are unremarkable except as noted in HPI & below Constitutional: as per Subjective / HPI Physical Exam Physical Exam: LLE NVSI +EHL/FHL/TA/GS SILT grossly, +2 DP pulse, compartments soft NT, dressing cdi. Constitutional: WD/WN, vitals as above Results & Data ([facility]) Vital Signs (Past 12 Hours) Vital Signs Temp Pulse Pulse Resp BP Pulse Ox 03/29/21 15:50 64 14 111/57 L 97 03/29/21 15:40 66 17 110/56 L 99 03/29/21 15:32 36.0 C L 68 13 103/50 L 96 03/29/21 10:55 36.8 C 69 20 149/75 H 95
[2021-03-29] MEDS ORDERED: VANCOMYCIN CONSULT ACTIVE PRN (16:42)
[2021-03-29] MEDS ORDERED: MAGNESIUM HYDROXIDE SUSP 30 ML UDC PO PRN (16:42)
[2021-03-29] MEDS ORDERED: oxyCODONE HCL IR 5 MG TAB (IMMEDIATE RELEASE) PO PRN (16:42)
[2021-03-29] MEDS ORDERED: METOCLOPRAMIDE HCL INJ 5 MG/ML 2 ML VIAL IV PRN (16:42)
[2021-03-29] MEDS ORDERED: bisacodyL 10 MG SUPP PR PRN (16:42)
[2021-03-29] MEDS ORDERED: diphenhydrAMINE Capsule 25 MG CAP PO PRN (16:42)
[2021-03-29] MEDS ORDERED: ONDANSETRON INJ 2 MG/ML 2 ML VIAL IV PRN (16:42)
[2021-03-29] MEDS ORDERED: NALOXONE HCL 0.4 MG/1 ML VIAL/CARP IV PRN (16:42)
[2021-03-29] MEDS ORDERED: HYDROmorphone INJ 0.5 MG/0.5 ML SYR IV PRN (16:42)
[2021-03-29] MEDS: SODIUM CHLORIDE 0.9% 1000ML 1,000 ML IV SCH (17:07)
[2021-03-29] MEDS: Nursing to Pharmacy Communication SCH (17:10)
[2021-03-29] MEDS: KETOROLAC TROMETHAMINE 15 MG/ML VIAL IV SCH ×2 (18:00→23:05)
[2021-03-29] MEDS: ACETAMINOPHEN 500 MG TAB PO SCH (20:24)
[2021-03-29] MEDS: DOCUSATE SODIUM 100 MG CAP PO SCH (20:25)
[2021-03-29] MEDS ORDERED: SENNA 8.6 MG TAB PO SCH (21:00)
[2021-03-29] MEDS ORDERED: ATENOLOL 25 MG TABLET PO SCH (21:00)
[2021-03-29] MEDS ORDERED: SIMVASTATIN 20 MG TAB PO SCH (21:00)
[2021-03-29] MEDS ORDERED: lisinopril 40 MG TAB PO SCH (21:00)
[2021-03-30] MEDS ORDERED: VANCOMYCIN HCL 1,500 MG in SODIUM CHLORIDE 0.9% 500 ML IV SCH
[2021-03-30] MEDS: SODIUM CHLORIDE 0.9% 1000ML 1,000 ML IV SCH (05:04)
[2021-03-30] MEDS: ACETAMINOPHEN 500 MG TAB PO SCH ×2 (05:04→13:55)
[2021-03-30] MEDS: KETOROLAC TROMETHAMINE 15 MG/ML VIAL IV SCH ×2 (05:04→12:00)
[2021-03-30 07:08] LABS: Mean Corpuscular Hemoglobin 31.6 pg (25-34); Mean Corpuscular Hgb Conc 33.3 g/dL (32-36); Mean Corpuscular Volume 94.7 fL (80-100); Mean Platelet Volume 9.3 fL (7.4-10.4); Platelet Count 255 K/uL (130-400); RDW Coefficient of Variation 13.2 % (11.5-14.5); RDW Standard Deviation 45.6 fL (36.4-46.3); White Blood Count 14.21 K/uL (4.8-10.8)
[2021-03-30 07:40] LABS: BUN Creatinine Ratio 26.3 (10-20); Calcium 8.6 mg/dl (8.5-10.1); Creatinine Clr Calc Pharmacy 56.5 ml/min; Est GFR (African American) 64.1 ml/min; Est GFR (Non-African American) 55.3 ml/min; Potassium 4.7 mmol/L (3.5-5.1)
--- NOTE | 2021-03-30 08:14 | Orthopedic Progress Note ---
Date of Service March 30, 2021 Assessment & Plan (1) Failed total left knee replacement: Status post I&D left total knee and repair of medial parapatellar arthrotomy POD#1 -Vanco x24 -DVT prophylaxis: SCDs, teds, 81 mg ASA twice daily -Weight-bear as tolerates left lower extremity -Maintain knee immobilizer, may remove for gentle range of motion exercises 0 to 70 degrees of flexion -PT/OT -Postoperative x-ray demonstrates a well aligned well fixed total knee prosthesis without fracture or dislocation. -A.m. labs - as above, hgb 12.0 -DC planning - home with OP PT Admission and Anticipated Discharge Date Admission Date: March 29, 2021 Subjective Post Operative Progress Note Patient seen sitting up in bed, comfortable, denies complaints, pain well controlled, no acute issues. Denies F/C/N/V/SOB/CP. Review of Systems Review of Systems: All systems reviewed & are unremarkable except as noted in HPI & below Constitutional: as per Subjective / HPI Physical Exam Physical Exam: LLE NVSI +EHL/FHL/TA/GS SILT grossly, +2 DP pulse, compartments soft NT, dressing cdi. Constitutional: WD/WN, vitals as above Results & Data ([facility]) Vital Signs (Past 12 Hours) Vital Signs Temp Pulse Pulse Resp BP Pulse Ox 03/30/21 07:36 36.8 C 72 135/65 95 03/30/21 02:22 36.4 C L 84 16 128/62 94 03/29/21 22:37 37.0 C 95 H 16 145/72 H 94 Laboratory Results 03/30/21 03/30/21 03/29/21 Range/Units 06:26 06:26 10:42 WBC 14.21 H (4.8-10.8) K/uL RBC 3.80 L (4.7-6.1) M/uL Hgb 12.0 L (14.0-18.0) g/dL Hct 36.0 L (42-52) % MCV 94.7 (80-100) fL MCH 31.6 (25-34) pg MCHC 33.3 (32-36) g/dL RDW Std Deviation 45.6 (36.4-46.3) fL RDW Coeff of Kristel 13.2 (11.5-14.5) % Plt Count 255 (130-400) K/uL MPV 9.3 (7.4-10.4) fL Sodium 138 (136-145) mmol/L Potassium 4.7 (3.5-5.1) mmol/L Chloride 110 H (98-107) mmol/L Carbon Dioxide 22 (21-32) mmol/L Anion Gap 6.0 (3-11) BUN 33 H (7-18) mg/dl Creatinine 1.24 (0.6-1.4) mg/dl Est Cr Clr Drug Dosing 56.5 ml/min Est GFR ( Amer) 64.1 ml/min Est GFR (Non-Af Amer) 55.3 ml/min BUN/Creatinine Ratio 26.3 H (10-20) Glucose 125 H (70-99) mg/dl Calcium 8.6 (8.5-10.1) mg/dl COVID-19 Eval Order SARS-CoV-2, RNA, NAAT NEGATIVE (NEGATIVE) 03/29/21 Range/Units 10:42 WBC (4.8-10.8) K/uL RBC (4.7-6.1) M/uL Hgb (14.0-18.0) g/dL Hct (42-52) % MCV (80-100) fL MCH (25-34) pg MCHC (32-36) g/dL RDW Std Deviation (36.4-46.3) fL RDW Coeff of Kristel (11.5-14.5) % Plt Count (130-400) K/uL MPV (7.4-10.4) fL Sodium (136-145) mmol/L Potassium (3.5-5.1) mmol/L Chloride (98-107) mmol/L Carbon Dioxide (21-32) mmol/L Anion Gap (3-11) BUN (7-18) mg/dl Creatinine (0.6-1.4) mg/dl Est Cr Clr Drug Dosing ml/min Est GFR ( Amer) ml/min Est GFR (Non-Af Amer) ml/min BUN/Creatinine Ratio (10-20) Glucose (70-99) mg/dl Calcium (8.5-10.1) mg/dl COVID-19 Eval Order Covid19 [facility] SARS-CoV-2, RNA, NAAT (NEGATIVE)
[2021-03-30] MEDS: DOCUSATE SODIUM 100 MG CAP PO SCH (08:45)
[2021-03-30] MEDS ORDERED: MULTIVITAMIN TAB PO SCH (09:00)
[2021-03-30] MEDS ORDERED: FLUTICASONE/VILANTEROL 200/25MCG 14 PUFFS/INHALER INH SCH (09:00)
[2021-03-30] MEDS ORDERED: FLUTICASONE PROPIONATE NA SPR 16 GM BTL SCH (09:00)
[2021-03-30] MEDS ORDERED: ASPIRIN 81 MG ECTAB PO SCH (09:00)
[2021-03-30] MEDS: Nursing to Pharmacy Communication SCH (12:01)
--- NOTE | 2021-03-30 20:30 | Discharge Summary ---
Date of Service March 30, 2021 Admission HPI Per Admitting Provider The patient is a 76 year old male who presents with complaints of increased pain and instability/weakness x 2 weeks after feeling a "pop" in his knee when bending it. XRs obtained in the office showed lateral subluxation/dislocation of the patella. On exam the patient had obvious defect of the medial parapatellar arthrotomy repair. The patient underwent revision left total knee on 02/07/21, removal of patella button and poly exchange. Principal Diagnosis I + D left total knee, repair of medial arthrotomy Discharge Exam LLE NVSI +EHL/FHL/TA/GS SILT grossly, +2 DP pulse, compartments soft NT, dressing cdi. Constitutional WD/WN, vitals as above Discharge Data Allergies Allergy/AdvReac Type Severity Reaction Status Date / Time ceftriaxone Allergy Intermediate RASH/HIVES Verified 03/29/21 10:54 Cephalosporins Allergy Intermediate RASH Verified 03/29/21 10:54 clindamycin Allergy Intermediate RASH HIVES Verified 03/29/21 10:54 latex Allergy Intermediate RASH Verified 03/29/21 10:54 orange Allergy Intermediate ORANGES OR Verified 03/29/21 10:54 JUICE-DRY SKIN,WHEEZING pollen extracts Allergy Intermediate POLLEN,GRASS Verified 03/29/21 10:54 HAYFEVER AGGRAVATES ASTHMA adhesive AdvReac Intermediate Blister Verified 03/29/21 10:54 Procedures Performed Operation Date: 03/29/21 13:00 Actual Procedures p Left Knee Incision and Drainage, Repair of Arthrotomy(Left) - Robin Brizuela DO Ordered Studies 03/29/21 05:00 US - OR guided needle placemen Routine Hospital Course (1) Failed total left knee replacement: Hospital Course: On 03/29/21 the patient was taken to the operating room, adequate anesthesia administered and underwent a I+D left total knee, repair of medial parapatellar arthrotomy. The patient tolerated the procedure well and was taken to the PACU in stable condition. Post-operatively the patient was started on a DVT ppx medication and given appropriate IV antibiotics. Consults were placed to phys ical therapy, occupational therapy and case management. On POD#1, the patient did well overnight and their pain was well controlled. Labs were drawn and the Hgb was 12.0. The patient progressed well with PT. Dressings were changed at this time and the incision was clean, dry and intact. On POD#2, The patients hospital stay was relatively uneventful and they were deemed stable by the orthopedic team and consultants to be discharged home with outpatient PT on 03/30/21. Discharge Instructions: Upon discharge the patient may weight bear as tolerates through their operative extremity. Maintain KI, may remove for gentle ROM exercises. They were instructed to keep the incision clean and dry at all times. The patient may shower but should not submerge the incision, avoid bathing, pools and hot tubs. The patient was given a script for pain medication and should take as instructed. The patient was given a script for DVT ppx 81mg ASA BID and should take as directed. The patient was instructed to not drive or travel for long distances until cleared to do so. If the patient develops any symptoms of fevers, chills, nausea, vomiting, increased redness, swelling, pain or drainage from the surgical site, they should notify the office and/or proceed to the nearest emergency room. The patient should follow up in 10-14 days after surgery for their routine post-operative follow-up appointment and should call the office, to confirm the date and time. Status post I&D left total knee and repair of medial parapatellar arthrotomy POD#1 -Vanco x24 -DVT prophylaxis: SCDs, teds, 81 mg ASA twice daily -Weight-bear as tolerates left lower extremity -Maintain knee immobilizer, may remove for gentle range of motion exercises 0 to 70 degrees of flexion -PT/OT -Postoperative x-ray demonstrates a well aligned well fixed total knee prosthesis without fracture or dislocation. -A.m. labs - as above, hgb 12.0 -DC planning - home with OP PT Total Time Total Time Spent Total Time Spent (In Minutes): 30 Discharge Plan Discharge Items Patient Disposition: Home - Self-Care Reason For Visit: Left Knee Failed Total Knee Arthroplasty Discharge Diagnosis: I+D Left total knee, repair of medial parapatellar arthrotomy Condition on Discharge: Good Activity: Per Instructions section Lifting: Wait until after follow-up appointment Bathing: Keep incision dry Bathing Comment: No bathing, pools or hot tubs. Sexual Activity: Wait until after follow-up appointment Exercise/Sports: Wait until after follow-up appointment Driving/Machine Use: No driving. Weightbearing: Full weightbearing Non-emergency contact: Primary Care Provider and Surgeon Call non-emergency contact if: you have any medication questions, your symptoms worsen, your pain is not controlled, your pain is worsening, your pain is unusual for you, your pain is concerning for you, you have a fever, your temperature is above 101, your wound has increased redness, your wound has increased drainage and your wound pain has increased Follow-up/Referrals: Robin Brizuela DO [Physician] - 04/13/21 8:15 am Gordo Richter M.D. [Primary Care Provider] - Diet: Regular Addtl Attending Provider Instructions: ACTIVITY RECOMMENDATIONS: SELF CARE INSTRUCTIONS AFTER TOTAL KNEE REPLACEMENT A. You may need to continue a physical therapy program after discharge from the hospital. There are several options available to you. Your doctor will assist you in selecting the best one for you. 1. An out-patient facility 2 to 3 times a week for therapy or home therapy. 2. Continue working on all exercises taught to you in the hospital. Your goals should be to increase bending of your knee to 70-80 degrees and to fully straighten your knee. B. You may progress at your own pace from walking with a walker or crutches to a cane; then to no assistive devices. C. Make walking a part of your daily routine. Be up as much as comfortable with rest periods throughout the day. Rest with leg elevation is very important. Use the ice wrap frequently for the first 3-4 weeks. D. There are no restrictions on activities. You may ride in a car, shop, participate in facility designer and all social activities. E. Wear the long elastic stockings (BURT hose) 20 hours a day for 2 weeks after surgery. They can be removed several times a day for laundering and for a bath. F. You may shower, no tub baths until cleared by your doctor. SPECIAL CARE INSTRUCTIONS: VERY IMPORTANT TO READ AND REVIEW A. There are a few signs you need to watch for after you are home. Call [facility] if you notice any of the followin. Increased severe knee pain. Some pain is expected especially when you exercise. 2. Increased swelling in your leg or knee; pain or swelling of the calf muscle in either lower leg. 3. Any fluid drainage from the incision. 4. Shortness of breath or chest pain. B. Please call [facility] at if you have any concerns or questions about your operation or recovery. The doctor or his nurse will return your call promptly. C. You must take antibiotics before dental work, bladder, bowel or other surgery. Your doctor will provide you with a permanent care to carry describing this precaution. IMPORTANT: * REMEMBER TO TAKE ASPIRIN, 81 MG, TWICE DAILY FOR 4 WEEKS UNLESS OTHERWISE DIRECTED. THIS IS YOUR BLOOD THINNER. * HIGH RISK PATIENTS MAY BE PRESCRIBED A STRONGER BLOOD THINNER. THIS WILL BE PROVIDED AT DISCHARGE. * CALL IF INCREASED PAIN, REDNESS, DRAINAGE OR FEVER GREATER THAT 101. * WEAR BURT HOSE 20 HOURS PER DAY FOR 2 WEEKS. * YOU MAY HAVE A LARGE BAND-AID LIKE DRESSING (SILVERON). THIS WILL REMAIN ON YOUR INCISION FOR 7 DAYS, THEN CAN BE REMOVED. IF INCISION IS LEAKING THROUGH DRESSING, CALL THE OFFICE . FOLLOW UP VISIT: If appointment is not already scheduled: Please call [facility] to make a follow-up appointment for 2 weeks after your surgery at . Pending Studies at Discharge: No Stand-Alone Forms: [facility], Opioid Pain Management, Smoking Cessation Medications and DC Order Prescriptions: New acetaminophen 500 mg Tablet 1,000 mg PO Q8 PRN (Reason: fever or pain) Qty: 90 RF: 0 aspirin 81 mg Tablet,Delayed Release (Dr/Ec) 81 mg PO BID Qty: 56 RF: 0 sennosides [Senokot] 8.6 mg Tablet 17.2 mg PO HS PRN (Reason: constipation) Qty: 30 RF: 0 oxycodone 5 mg Tablet 5 mg PO Q6H MDD 4 PRN (Reason: pain) Qty: 30 RF: 0 Continued vitamin K2 100 mcg Capsule 100 mcg PO QAM RF: 0 atenolol 25 mg Tablet 25 mg PO HS RF: 0 ascorbic acid (vitamin C) [Vitamin C] 500 mg Tablet 500 mg PO QAM RF: 0 simvastatin 20 mg Tablet 20 mg PO HS RF: 0 mometasone 50 mcg/actuation Hulen,Non-Aerosol 2 spray INTRANASAL QAM RF: 0 montelukast 10 mg Tablet 10 mg PO HS RF: 0 lisinopril 40 mg Tablet 40 mg PO HS RF: 0 multivitamin Capsule 1 cap PO QAM RF: 0 cholecalciferol (vitamin D3) [Vitamin D3] 1,000 unit Tablet,Chewable 5,000 unit PO QAM RF: 0 Zyrtec 10 mg Capsule 10 mg PO QAM RF: 0 clotrimazole [Athletic Foot Cream] 1 % Cream 1 applic TOPICAL DAILY RF: 0 fluticasone propion-salmeterol [Advair Diskus] 250-50 mcg/dose Blister With Device 1 inh INHALATION BID RF: 0 Discontinued acetaminophen 500 mg Tablet 1,000 mg PO Q8 PRN (Reason: fever or pain) Qty: 90 RF: 0 celecoxib [Celebrex] 200 mg Capsule 200 mg PO BID PRN (Reason: pain/inflammation) Qty: 28 RF: 0 oxycodone 5 mg Tablet 5 mg PO Q6H MDD 4 PRN (Reason: pain) Qty: 30 RF: 0 sennosides [Senokot] 8.6 mg Tablet 17.2 mg PO HS PRN (Reason: constipation) Qty: 28 RF: 0 aspirin 81 mg tablet,delayed release (DR/EC) 81 mg PO HS RF: 0 Discharge Orders: Discharge Order (Routine); Ordered 03/30/21 Ordered By: Robin Wilson/Other Patient Handouts: Preventing Deep Vein Thrombosis Admission Data Admit Date/Time: 03/29/21 15:33 Attending Provider: Robin Brizuela Admit Provider: Robin Brizuela Primary Care Provider: Gordo Richter Other Interventions: Discharge Summary Assessment (RN) Last Done: 03/30/21 12:41
== END 2021-03-30 14:59 | disposition home or self-care (01) ==
LOC: ASU 10:30 → 3E 10:30